=== PATIENT | female | born 1935 | race Caucasian/White ===

== ENCOUNTER 2017-01-08 17:01 | Inpatient (IN) ==
--- NOTE | 2017-01-08 17:14 | Emergency Department Report ---
Fall HPI - General Chief Complaint: Fall Stated Complaint: Fall Time Seen by Provider: 01/08/17 17:03 Source: patient Mode of arrival: ambulatory Limitations: no limitations - History of Present Illness HPI Narrative: She was outside today and was watering her plants. She got tangled up in the hose and fell from standing. She was not able to get up so yelled for her neighbor to come and help. She was laying on the concrete for about 15 minutes before her neighbor came. She does have noted shortening and rotation of the right lower extremity. Sensation and pulse is intact. MD complaint: fall Onset (ago): hour(s) Fall from: standing Fall witnessed: no Place fall occurred: home Loss of consciousness: none Prolonged down time: no Symptoms prior to fall: none Context: tripped/slipped Location of injury: pelvis (and right hip/leg) Location of injury - extremities: Right: lower leg Severity: moderate Associated symptoms (after fall): denies - Related Data Home Medications Medication Instructions Recorded Confirmed hydroCHLOROthiazide 25 mg PO DAILY #0 08/01/09 01/08/17 [Hydrochlorothiazide] Apixaban [Eliquis] 5 mg PO BID 01/08/17 01/08/17 Aspirin [Ecotrin] 81 mg PO DAILY 01/08/17 01/08/17 Losartan [Cozaar] 25 mg PO DAILY 01/08/17 01/08/17 Metoprolol Succinate 100 mg PO DAILY 01/08/17 01/08/17 Potassium 99 mg PO DAILY 01/08/17 01/08/17 Simvastatin [Zocor] 40 mg PO DAILY 01/08/17 01/08/17 Allergies Allergy/AdvReac Type Severity Reaction Status Date / Time ciprofloxacin Allergy Intermediate FLUSHING Verified 08/01/09 12:18 erythromycin base Allergy Intermediate FLUSHING Verified 08/01/09 12:18 nitrofurantoin Allergy Intermediate TACHYCARDIA Verified 08/01/09 12:18 Penicillins Allergy Intermediate RASH ; SOA Verified 08/01/09 12:18 Sulfa (Sulfonamide Allergy Intermediate Rash; SOA Verified 08/01/09 12:18 Antibiotics) Cephalexin Monohydrate Allergy Intermediate ITCHING Uncoded 08/01/09 12:18 ciprofloxacin HCl Allergy Intermediate FLUSHING Uncoded 08/01/09 12:18 Nitrofurantoin Macrocrystal Allergy Intermediate TACHYCARDIA Uncoded 08/01/09 12 :18 Review of Systems Constitutional: Denies: fever, chills, weakness Cardiovascular: Denies: chest pain, palpitations, dyspnea on exertion, edema Respiratory: Denies: cough, dyspnea, wheezes Gastrointestinal: Denies: abdominal pain, nausea, vomiting, diarrhea Musculoskeletal: Reports: other (right leg pain) Neurological: Denies: headache, weakness, numbness, paresthesias [facility] Patient Stated Medical History Post Menopausal Yes HTN thyroid disease Syncopal episode-believed to be possibly embolic events-placed on Eloquis Surgical History: Thyroidectomy. Hysterectomy-had appendix removed at the same time. - Social History Smoking status: Never smoker Substance use type: does not use Alcohol intake frequency: does not drink Physical Exam - Limitations Limitations: no limitations - General General appearance: alert, in no apparent distress - Normal Exams: Neck:: Full range of motion, without adenopathy, JVD, bruits or thyromegaly Chest/Respirations:: Clear all edouard, with good airflow, and symmetry bilaterally Cardiovascular:: Regular rate and rhythm, without murmur or gallop, Pulses 2+ all extremities, capillary refill, <2 seconds all extremities Abdomen:: Bowel sounds positive, soft, non-tender, non-distended, no hepatosplenomegaly, masses or bruits noted Neurological:: Patient is alert, and oriented Psychiatric:: Patient exhibits, appropriate attention, emotion and affect - Expanded Lower Extremity Exam Hip/Pelvis exam: Present: tenderness (over proximal femur), swelling, deformity. Absent: normal inspection (There is some increased swelling in the right proximal femur with TTP. ), full ROM, abrasion, ecchymosis Upper leg exam: Present: tenderness, swelling, deformity. Absent: normal inspection, full ROM, abrasion, ecchymosis Knee exam: Present: normal inspection. Absent: full ROM (Did not attempt ROM of the right knee given examination of the hip and femur), tenderness, swelling , abrasion, ecchymosis, deformity Lower leg exam: Present: normal inspection. Absent: full ROM, tenderness, swelling, abrasion, deformity Ankle exam: Present: normal inspection, full ROM. Absent: tenderness, swelling , abrasion, ecchymosis, deformity Foot/toe exam: Present: normal inspection, full ROM. Absent: tenderness, swelling, abrasion, ecchymosis, deformity Neurovascular/Tendon exam: Present: normal capillary refill. Absent: pulse deficit (right pedal pulse is 2+) - Skin Skin exam: Present: other (She does have abrasions noted to the right elbow but full ROM and no TTP. ) Course Vital Signs Pulse Rate 65 01/08/17 17:05 Respiratory Rate 19 01/08/17 17:05 Blood Pressure 178/79 H 01/08/17 17:05 Pulse Oximetry 98 01/08/17 17:05 Pulse Rate 65 01/08/17 17:05 Respiratory Rate 19 01/08/17 17:05 Blood Pressure 178/79 H 01/08/17 17:05 Pulse Oximetry 98 01/08/17 17:05 Fall - MDM Narrative Medical decision making narrative: DD: hip fracture, femur fracture, contusion Noted right intertrochanteric hip fracture. Did talk with Dr Falk. He will accept for ortho today. Requests admission to hospitalist. Did speak with Dr Isaac and she will accept for admission at this time. - Radiology Data Attestation: I reviewed the patient's radiology results. Disposition Clinical Impression: Trochanteric fracture of right femur Qualifiers: Encounter type: initial encounter Fracture type: closed Qualified Code(s): S72.101A - Unspecified trochanteric fracture of right femur, initial encounter for closed fracture Disposition: 02 To [facility] [place] Care Condition: Stable Prescriptions: No Action hydroCHLOROthiazide [Hydrochlorothiazide] 25 mg PO DAILY #0 Losartan [Cozaar] 25 mg PO DAILY Potassium 99 mg PO DAILY Metoprolol Succinate 100 mg PO DAILY Aspirin [Ecotrin] 81 mg PO DAILY Simvastatin [Zocor] 40 mg PO DAILY Apixaban [Eliquis] 5 mg PO BID Time of Disposition: 17:49 - Seen By: midlevel
--- NOTE | 2017-01-08 18:59 | History & Physical Report ---
<Nicole Mabry - Last Filed: 01/08/17 19:27> History of Present Illness Date: 01/08/17 Chief complaint: right hip pain HPI: Patient is a pleasant 81-year-old female from [place], [place]. She was in her yard watering plants this afternoon and reports she got tangled up in the hose and fell onto her right hip. She does not feel that she lost consciousness. She thinks she was down for at least 15 minutes before one of her neighbors heard her yelling for help. EMS was called and she was brought to our emergency department and found to have a right intertrochanteric hip fracture. In the ER she had workup including CBC with white blood cell count of 16.3, remainder essentially normal. Her CMP revealed sodium low at 133 and potassium low at 3.3. Her EKG showed bradycardia with a first-degree AV block. Her chest x-ray shows no acute abnormalities. Dr. Falk was consulted and agreed to proceed with surgery in the morning, with the hospitalist team admitting patient this evening. Patient was seen while still in the ER. She states pain is 5/10. Her last pain medication had been given en route to the ED by EMS. She reports she has been feeling well. She lives at home independently with her . Her most recent visit to her doctor was several months ago for complaints of belching/gas. She reports her previous PCP, Dr. Gipson, has left so she is seeing Dr. Bardales in [place]. She states he wanted to put her on Prilosec, but she decided to take Pepcid instead. She states this controls her symptoms. She also reports being put on Eliquis in September 2015 following at least 1 or 2 syncopal episodes with an unknown cause. She was seen by a manager unit in [place] who had performed, what sounds like a heart cath, and she also had a 30 day heart monitor. She states they never fully found a cause for her syncopal episodes, but there was suspicion of an arrhythmia and that is why they started her on Eliquis. She has not had any syncopal episodes since she has been on Eliquis. Review of Systems Comprehensive ROS: completed and no additional positive findings except those as stated - Gastrointestinal Gastrointestinal: Present: dyspepsia (occasional. Controlled with Pepcid.) - Musculoskeletal Musculoskeletal: Present: as per HPI - Integumentary/Breasts Integumentary: Present: other (skin tears to right forearm and mild abrasions to left elbow) PFSH Hypertension Dyslipidemia Anticoagulation-started for syncopal episodes (Questionable arrhythmia?) GERD Surgical History: Thyroidectomy - Dr. Wayne. Hysterectomy and bilateral oophorectomy and appendectomy '84 Family History: Father of old age Mother at 92-stroke 2 sons and a daughter have hypertension - Social History Smoking status: Never smoker Substance use type: does not use Alcohol intake frequency: other (once a week-mixed drink) Housing: house Household members: spouse Current occupational status: retired Medications Home Medications Medication Instructions Recorded Confirmed Type hydroCHLOROthiazide 25 mg PO DAILY #0 08/01/09 01/08/17 History [Hydrochlorothiazide] Apixaban [Eliquis] 5 mg PO BID 01/08/17 01/08/17 History Aspirin [Ecotrin] 81 mg PO DAILY 01/08/17 01/08/17 History Losartan [Cozaar] 25 mg PO DAILY 01/08/17 01/08/17 History Metoprolol Succinate 100 mg PO DAILY 01/08/17 01/08/17 History Potassium 99 mg PO DAILY 01/08/17 01/08/17 History Simvastatin [Zocor] 40 mg PO DAILY 01/08/17 01/08/17 History Allergies Allergy/AdvReac Type Severity Reaction Status Date / Time ciprofloxacin Allergy Intermediate FLUSHING Verified 08/01/09 12:18 erythromycin base Allergy Intermediate FLUSHING Verified 08/01/09 12:18 nitrofurantoin Allergy Intermediate TACHYCARDIA Verified 08/01/09 12:18 Penicillins Allergy Intermediate RASH ; SOA Verified 08/01/09 12:18 Sulfa (Sulfonamide Allergy Intermediate Rash; SOA Verified 08/01/09 12:18 Antibiotics) Cephalexin Monohydrate Allergy Intermediate ITCHING Uncoded 08/01/09 12:18 ciprofloxacin HCl Allergy Intermediate FLUSHING Uncoded 08/01/09 12:18 Nitrofurantoin Macrocrystal Allergy Intermediate TACHYCARDIA Uncoded 08/01/09 12 :18 Exam Vital Signs: Pulse Rate 65 01/08/17 17:05 Respiratory Rate 19 01/08/17 17:05 Blood Pressure 178/79 H 01/08/17 17:05 Pulse Oximetry 98 08/22/17 17:05 - Constitutional Present: no acute distress, well nourished, well developed - Routine HEENT Exam Head: Present: normocephalic, atraumatic Eye: Present: EOMI, PERRL ENT: Present: mucous membranes moist, oropharynx clear - Routine Neck Exam Present: supple, full ROM - Routine Respiratory Exam Present: CTA bilaterally. Absent: wheezes - Routine Cardiovascular Exam Present: RRR, S1, S2. Absent: murmur - Routine Abdominal Exam Present: soft, normoactive bowel sounds, non distended. Absent: tenderness - Routine Extremities Exam Present: no edema, normal capillary refill. Absent: extremity cold to touch Comments: Palpable pedal pulses bilaterally, shortening and rotation of the right leg - Routine Back/Spine/Pelvis Exam Comments: Pain with palpation in the right groin. No obvious ecchymosis or abrasion to the right hip area. Range of motion was not assessed given the patient's injury. - Routine Skin Exam Present: dry, warm, scars, wounds (2 skin tears to right forearm, mild erythema and slight abrasion to left elbow) - Routine Neurological Exam Present: alert, oriented X3. Absent: sensory deficit Cranial nerves III through XII grossly intact. - Routine Psychiatric Exam Present: normal affect Results - Labs CBC & Chem 7: 01/08/17 17:48 01/08/17 17:48 Labs: EKG shows sinus bradycardia with first-degree AV block - Imaging and Cardiology right hip x-ray Additional comments: Intertrochanteric hip fracture. Official report pending. Chest x-ray Additional comments: No significant abnormalities. Official report pending. Assessment and Plan (1) Trochanteric fracture of right femur Current visit: Yes Status: Acute DVT Prophylaxis: SCD's GI Prophylaxis: Pepcid Resuscitation Status: Full Code Assessment and Plan: Assessment Right Intertrochanteric hip fracture-status post fall Skin tears and superficial abrasions right forearm and left elbow Hyponatremia (POA) Hypokalemia (POA) Bradycardia with first-degree AV block Hypertension Dyslipidemia Anticoagulation-started for syncopal episodes (questionable arrhythmia?) September 2015 Plan Admit to hospitalist team for inpatient hospital care with Dr. Falk consulting for surgery for right intertrochanteric hip fracture. Patient's Eliquis and aspirin will be put on hold given pending surgery. Dr. Isaac to reconcile home meds. Nurses to clean and dress skin tears/abrasions IV fluids for maintenance and to correct hyponatremia and hypokalemia. May consider holding hydrochlorothiazide. SCDs for DVT prophylaxis. Regular diet tonight. Nothing by mouth after midnight. CBC and BMP in a.m. prior to surgery Morphine IV, Tylenol and [place] by mouth when necessary for pain. Zofran for nausea. Pepcid for GI prophylaxis. Patient is hesitant to take PPIs and prefers Pepcid at home. Telemetry given history of syncopal episodes and possible cardiac arrhythmia Will further discuss plan of care with attending. Discussed patient's preference for CODE STATUS. Patient requests full resuscitation. This order is written. At time of patient's discharge, care will be returned to her PCP, Dr. Perez Bardales in [place]. Hospital Course Summary Disclaimer: The visit summary below is not to be considered part of the above Progress Note. Hospital Course: 01/08/17 hospitalist admission Assessment Right Intertrochanteric hip fracture-status post fall Skin tears and superficial abrasions right forearm and left elbow Hyponatremia (POA) Hypokalemia (POA) Hypertension Dyslipidemia Anticoagulation-started for syncopal episodes (questionable arrhythmia?) September 2015 Plan Admit to hospitalist team for inpatient hospital care with Dr. Falk consulting for surgery for right intertrochanteric hip fracture. Patient's Eliquis and aspirin will be put on hold given pending surgery. Dr. Isaac to reconcile home meds. Nurses to clean and dress skin tears/abrasions IV fluids for maintenance and to correct hyponatremia and hypokalemia. May consider holding hydrochlorothiazide. SCDs for DVT prophylaxis. Regular diet tonight. Nothing by mouth after midnight. CBC and BMP in a.m. prior to surgery Morphine IV, Tylenol and [place] by mouth when necessary for pain. Zofran for nausea. Pepcid for GI prophylaxis. Patient is hesitant to take PPIs and prefers Pepcid at home. Telemetry given history of syncopal episodes and possible cardiac arrhythmia Will further discuss plan of care with attending. Discussed patient's preference for CODE STATUS. Patient requests full resuscitation. This order is written. At time of patient's discharge, care will be returned to her PCP, Dr. Perez Bardales in [place] <Shelby Isaac Last Filed: 01/08/17 20:30> History of Present Illness Date: 01/08/17 Exam Vital Signs: Temperature 97.3 F 01/08/17 19:58 Pulse Rate 61 01/08/17 19:58 Respiratory Rate 18 01/08/17 19:58 Blood Pressure 191/76 H 01/08/17 19:58 Pulse Oximetry 100 01/08/17 19:19 Oxygen Delivery Method Room Air Height/Weight/BMI: Height 1.61 m Weight 81.4 kg Body Mass Index 31.3 Results - Labs CBC & Chem 7: 01/08/17 17:48 01/08/17 17:48 Assessment and Plan (1) Trochanteric fracture of right femur Current visit: Yes Status: Acute Assessment and Plan: 01/08/2017-I reviewed this chart, the patient history, and the IT DIRECTOR's/PA's documented findings as above. We discussed and formulated the assessment and plan as above with the additions below.-Dr. Isaac The patient was seen this evening accompanied by one of her daughters. The patient states that she was watering her tripathi and got tangled up in her watering hose and tripped and fell. She states she did not hit her head that she is aware of. She denies any headache or neck discomfort. She has some scrapes on her elbows. Other than her right hip, she does not hurt anywhere else. She states she was in her normal state of health before her fall. She had been eating and drinking well. She has not had any weight changes. She denies any recent fevers, chills or sweats. She denies any recent Signs or symptoms of infection. She denies any chest pain or palpitations. She denies any shortness of breath. She denies nausea, vomiting, diarrhea or significant constipation. She denies any dysuria. She does take eliquis and aspirin. She took eliquis this morning and her second dose at 2pm. She states that she was told she could take this medication twice a day as long as it was 6 hours apart. She denies any abnormal bleeding since starting this medication. On exam she is alert and in no acute distress. She appears to be good historian. HEENT reveals sclerae to be anicteric and oropharynx is moist. Neck is supple. Chest is clear to auscultation. Cardiovascular reveals regular rate and rhythm without murmur, S3 or S4. Abdomen is soft and nontender. Extremities are free of edema. Right leg is inwardly rotated. Skin is warm and dry and without rashes. She has abrasions on her arms from her fall today. Impression Right hip fracture History of syncope, none for the past 1 year. Anticoagulation with eliquis for syncope thought to be secondary to arrhythmia hypertension hyperlipidemia hyponatremia hypokalemia leukocytosis without fever or symptoms of infection-likely up secondary to stress Plan Discussed with Dr. Falk. He plans for surgery tomorrow afternoon. The patient should be nothing by mouth after clear liquid breakfast tomorrow. Hold aspirin until close Blood pressure is quite elevated this evening. She takes her Toprol in the evenings and we will give her a dose now. She takes her losartan and hydrochlorothiazide in the mornings and those will be given tomorrow morning unless her blood pressure is low. Recheck CBC and basic metabolic profile tomorrow. The patient is uncertain if she has a DURABLE POWER OF LICENSING AND REGISTRATION DIRECTOR for healthcare but she will talk with her children about this. If she does not have one, she will consider filling out DPOA paperwork. Hospital Course Summary Disclaimer: The visit summary below is not to be considered part of the above Progress Note.
[2017-01-08] MEDS ORDERED: POTASSIUM CHLORIDE INJ 20 MEQ in NS 1,000 ML IV SCH (19:15)
[2017-01-08 19:59] VITALS: BMI 31.3
[2017-01-08] MEDS: FAMOTIDINE 20 MG TABLET PO SCH ×2 (20:12→22:13)
[2017-01-08] MEDS: HYDROCODONE/APAP 5mg/325mg TABLET PO PRN (20:13)
[2017-01-08] MEDS ORDERED: HYDRALAZINE 20 MG/ML INJECTION IVP PRN (20:18)
[2017-01-08] MEDS: NS 1,000 ML IV ONE (20:40)
[2017-01-08] MEDS: ONDANSETRON 4 MG/2 ML INJECTION IVP PRN (20:42)
[2017-01-08] MEDS: MORPHINE SULFATE 4 MG SYRINGE IVP PRN (23:05)
[2017-01-09] MEDS: HYDROCODONE/APAP 5mg/325mg TABLET PO PRN ×4 (00:38→23:06)
[2017-01-09] MEDS: NS 1,000 ML IV ONE (02:47)
[2017-01-09] MEDS: BACITRACIN OINT 15 GM TOP PRN (04:32)
[2017-01-09] MEDS: SALINE FLUSH 10ml SYRINGE IVF PRN ×3 (04:32→22:57)
--- NOTE | 2017-01-09 05:04 | Cardiology Consult Note ---
History of Present Illness Consult date: 01/09/17 <Kimber Montaño T - 01/09/17 05:04> Requesting physician: Shelby Isaac <Kimber Montaño T - 01/09/17 05:04> Chief complaint: Hypotension and bradycardia <Kimber Montaño T - 01/09/17 05: 04> History of present illness: This is an 81 year old patient with a history of HTN , DSLD, and arrhythmia. In 09/2015 she had a syncopal episode and her wreath inspector in [place] performed a heart cath and she wore a month long holter monitor. According to the pt they never found a reason for the syncope, and her heart cath was fine, but they suspected an arrhythmia and she was started on Eliquis. She has not had a syncopal episode since. She takes pepcid for GERD. She has been taking the same BP meds for yrs. Yesterday she was outside watering her plants when she became tangled up in the hose and fell. She did not pass out or have any lightheadedness, palpitations, chest pain or SOB. She just tripped. She yelled for her neighbor and EMS brought her into [facility] In ER her BP 178/79 and HR 65. ECG: SB, HR 58, NS T wave abnormality. WBC 16.3, Na 133, and K+ 3.3. CXR: heart size normal, lungs clear. She was found to have a right intertrochanteric hip fracture and admitted. In the ER she had workup including CBC with white blood cell count of 16.3, remainder essentially normal. Her CMP revealed sodium low at 133 and potassium low at 3.3. Her EKG showed bradycardia with a first-degree AV block. Her chest x -ray shows no acute abnormalities. Dr. Falk was consulted and agreed to proceed with surgery in the morning, with the hospitalist team admitting patient this evening. About 2100 she was laying in bed when she suddenly became nauseated and became pale and diaphoretic. Her HR went down to the 40's and BP in the 60's. She was placed flat in bed and SBP came up to 87. IVF started by Dr. Isaac. Prior to this episode her HR was in the 50's and SBP in the 190's. She states any movement would sent her to the ceiling in pain. About 15 minutes prior to this episode she was given her usual dose of Toprol 100 mg which she normally takes in the evening and a [place]. An ECG: SB, HR 58, NS T wave abnormality. Then Her SBP jumped up to 170's and IVF stopped after receiving 300ml. Pt was transferred to ICU and SBP was up to 200. She felt better, no chest pain, SOB, lightheadedness or headache. O2 sat ok on room air. HR 50's Most information from notes as pt is sleepy and does not remember all the details of her 2100 episode, but she does remember tripped over the hose earlier today and hollering at the neighbors for help. Dr. Rojas was consulted for hypotension and bradycardia. Thank you, Dr. Isaac for this consult. <SabraKimber 01/09/17 06:10> Review of Systems - Constitutional Constitutional: Absent: chills, fever(s) <SabraKimber 01/09/17 06:10> - EENMT Eyes: Absent: change in vision <SabraKimber 01/09/17 06:10> Balance: Absent: vertigo <SabraKimber 01/09/17 06:10> Mouth/Throat: Absent: sore throat <SabraKimber 01/09/17 06:10> - Cardiovascular Cardiovascular: Present: syncope. Absent: chest pain, palpitations, dyspnea on exertion, orthopnea, edema, heart murmur <SabraKimber 01/09/17 06:10> Rhythm: Present: regular rhythm <SabraKimber 01/09/17 06:10> Vascular: Absent: pedal edema <SabraKimber 01/09/17 06:10> - Respiratory Respiratory: Absent: cough, dyspnea, dyspnea on exertion <SabraKimber 01/09/17 06:10> - Gastrointestinal Gastrointestinal: Absent: change in stool character, melena, nausea <SabraKimber 01/09/17 06:10> - Musculoskeletal Musculoskeletal: Present: other (righ hip pain now. ). Absent: abnormal gait <Kimber Montaño 01/09/17 06:10> - Integumentary/Breasts Integumentary: Present: other (bruises) <Kimber Montaño 01/09/17 06:10> - Neurological Neurological: Absent: abnormal gait, abnormal speech, confusion, dizziness < Kimber Montaño 01/09/17 06:10> - Psychiatric Psychiatric: Absent: anxiety, depression <Kimber Montaño 01/09/17 06:10> - Endocrine Endocrine: Absent: cold intolerance <Kimber Montaño 01/09/17 06:10> - Hematologic/Lymphatic Hematologic/Lymphatic: Present: easy bruising <Kimber Montaño 01/09/17 06: 10> [facility] Patient Stated Medical History Syncope Yes: IN PAST Cardiac Arrhythmia Yes Heart Murmur Yes Hypertension Yes Post Menopausal Yes <Candido Rojas - 01/10/17 14:45> Patient Stated Medical History Syncope Yes: IN PAST Cardiac Arrhythmia Yes Hypertension Yes Post Menopausal Yes <Kimber Montaño 01/09/17 06:10> Surgical History: Thyroidectomy - Dr. Wayne. Hysterectomy and bilateral oophorectomy and appendectomy ' <Kimber Montaño 01/09/17 05:04> Family History: Mother at 92, she had unknown heart problems. Father in his 80's after a fall. <Kimber Montaño 01/09/17 06:10> - Social History Smoking status: Never smoker <Kimber Montaño 01/09/17 05:04> Substance use type: does not use <Kimber Montaño 01/09/17 06:10> Alcohol intake frequency: holidays/special occasions only <Kimber Montaño 01/09/17 06:10> Housing: house <Kimber Montaño 01/09/17 06:10> Household members: spouse <Kimber Montaño 01/09/17 06:10> Current occupational status: retired <Kimber Montaño 01/09/17 06:10> Current residence: Apartment/Private Home <Kimber Montaño 01/09/17 06:10> [facility]: [facility] Does her own chores at home and gardens. PCP: Dr. Bardales in [place], [place]. <Kimber Montaño - 01/09/17 06:10> Medications Home Medications Medication Instructions Recorded Confirmed Type hydroCHLOROthiazide 25 mg PO DAILY #0 08/01/09 01/08/17 History [Hydrochlorothiazide] Apixaban [Eliquis] 5 mg PO BID 01/08/17 01/08/17 History Aspirin [Ecotrin] 81 mg PO DAILY 01/08/17 01/08/17 History Losartan [Cozaar] 25 mg PO DAILY 01/08/17 01/08/17 History Metoprolol Succinate 100 mg PO DAILY 01/08/17 01/08/17 History Potassium 99 mg PO DAILY 01/08/17 01/08/17 History Simvastatin [Zocor] 40 mg PO DAILY 01/08/17 01/08/17 History <Candido Rojas - 01/10/17 14:45> Allergies Allergy/AdvReac Type Severity Reaction Status Date / Time ciprofloxacin Allergy Intermediate FLUSHING Verified 08/01/09 12:18 erythromycin base Allergy Intermediate FLUSHING Verified 08/01/09 12:18 nitrofurantoin Allergy Intermediate TACHYCARDIA Verified 08/01/09 12:18 Penicillins Allergy Intermediate RASH ; SOA Verified 08/01/09 12:18 Sulfa (Sulfonamide Allergy Intermediate Rash; SOA Verified 08/01/09 12:18 Antibiotics) Cephalexin Monohydrate Allergy Intermediate ITCHING Uncoded 08/01/09 12:18 ciprofloxacin HCl Allergy Intermediate FLUSHING Uncoded 08/01/09 12:18 Nitrofurantoin Macrocrystal Allergy Intermediate TACHYCARDIA Uncoded 08/01/09 12 :18 FOOD COLOR AdvReac Uncoded 01/08/17 21:07 <Candido Rojas - 01/10/17 14:45> Exam Vital signs: Temperature 98.8 F 01/10/17 07:45 Pulse Rate 82 01/10/17 12:00 Respiratory Rate 16 01/10/17 07:45 Blood Pressure 130/67 01/10/17 07:45 Pulse Oximetry 92 01/10/17 07:45 Oxygen Delivery Method Room Air Oxygen Flow Rate 1 <Candido Rojas - 01/10/17 14:45> Temperature 97.8 F 01/09/17 04:00 Pulse Rate 54 L 01/09/17 04:01 Respiratory Rate 16 01/09/17 04:01 Blood Pressure 147/66 H 01/09/17 04:01 Pulse Oximetry 98 01/09/17 04:01 Oxygen Delivery Method Room Air Oxygen Flow Rate 2 <Kimber Montaño 01/09/17 06:10> - Constitutional no acute distress, well nourished, well developed, cooperative <Kimber Montaño 01/09/17 06:10> - Routine HEENT Exam Head: Present: normocephalic, atraumatic <Kimber Montaño 01/09/17 06:10> Eye: Present: normal accommodation, conjunctivae pink <Kimber Montaño 06:10> ENT: Present: mucous membranes moist <Kimber Montaño 01/09/17 06:10> - Routine Neck Exam Present: trachea midline. Absent: JVD, carotid bruit <Kimber Montaño 06:10> - Routine Chest/Breast/Axilla Exam Chest wall: Absent: tenderness <Kimber Montaño 01/09/17 06:10> - Routine Respiratory Exam Present: CTA bilaterally. Absent: dyspnea <Kimber Montaño 01/09/17 06:10> - Routine Cardiovascular Exam Present: RRR, no murmur <Kimber Montaño 01/09/17 06:10> - Routine Abdominal Exam Present: soft, non tender <Kimber Montaño 01/09/17 06:10> - Routine Extremities Exam Present: no edema, pulses intact (+ 2 pedal pulses) <Kimber Montaño 06:10> Comments: Right hip and leg pain with movement. <Kimber Montaño 01/09/17 06:10> - Routine Skin Exam Present: intact, dry, warm, ecchymosis <Kimber Montaño 01/09/17 06:10> - Routine Neurological Exam Present: alert, oriented X3, moving all extremities (except right leg. ) < Kimber Montaño - 01/09/17 06:10> - Routine Psychiatric Exam Present: normal affect, normal thought process, cooperative, good insight, good judgment <Kimber Montaño T - 01/09/17 06:10> Results 01/10/17 04:21 01/10/17 04:21 <CrystalIbethCandido - 01/10/17 14:45> CBC 01/10/17 Range/Units 04:21 WBC 9.1 (4.5-11.0) T/MM3 RBC 2.74 L (4.00-5.20) M/MM3 Hgb 8.2 L D (12-16) GM/DL Hct 24.4 L D (36-46) % Plt Count 221 (130-400) T/MM3 Neut # 6.5 (1.8-7.7) T/MM3 Lymph # 1.2 (1-4.8) T/MM3 [place] # 1.2 H (0-0.8) T/MM3 Eos # 0.1 (0-0.5) T/MM3 Baso # 0.0 (0-0.2) T/MM3 Comprehensive Metabolic Panel 01/10/17 Range/Units 04:21 Sodium 128 L (134-144) MEQ/L Potassium 3.9 (3.6-5) MEQ/L Chloride 97 L (98-107) MEQ/L Carbon Dioxide 26 (22-30) MEQ/L BUN 10.0 (7-17) MG/DL Creatinine 0.7 (0.7-1.2) MG/DL Glucose 128 H (65-110) MG/DL Calcium 7.9 L (8.4-10.2) MG/DL Intake and Output 01/09/17 01/10/17 01/10/17 22:59 06:59 14:59 Intake Total 431.333 / 243.988 5970.000 / 1150.000 959.333 / 959.333 Output Total 515 / 515 220 / 220 Balance -83.667 / -83.667 930.000 / 930.000 959.333 / 959.333 Intake: IV 431.333 / 431.333 600.000 / 600.000 723.333 / 723.333 CLEOCIN PREMIX 600 mg In 100 / 100 50 / 50 50 ml @ 100 mls/hr IV Q6H [facility] Rx#:[id number] CLEOCIN PREMIX 900 mg In 50 / 50 50 ml @ 50 mls/hr IV ONE TIME [facility] Rx#:[id number] Normal Saline 500 ml @ 500 / 500 250 mls/hr IV .Q2H [facility] Rx #:[id number] Normal Saline 1,000 ml @ 381.333 / 381.333 500.000 / 500.000 173.333 / 173.333 80 mls/hr IV .[id number] [facility] Rx#:[id number] Oral 550 / 550 236 / 236 Output: Urine Amount (Catheter) 515 / 515 220 / 220 Other: Urine Appearance Clear Clear Urine Color Yellow Dark Yellow Urine Odor Normal Weight 72.3 kg Patient Weight 01/11/17 06:59 Weight 72.3 kg <Candido Rojas - 01/10/17 14:45> Cardiac Enzymes 01/08/17 Range/Units 20:46 Troponin I < 0.012 (0-0.12) ng/ml CBC 01/08/17 Range/Units 20:46 WBC 15.8 H (4.5-11.0) T/MM3 RBC 3.77 L (4.00-5.20) M/MM3 Hgb 11.2 L (12-16) GM/DL Hct 33.1 L (36-46) % Plt Count 291 (130-400) T/MM3 Neut # Not performed Lymph # Not performed [place] # Not performed Eos # Not performed Baso # Not performed Comprehensive Metabolic Panel 01/08/17 Range/Units 20:46 Sodium 130 L (134-144) MEQ/L Potassium 3.6 (3.6-5) MEQ/L Chloride 97 L (98-107) MEQ/L Carbon Dioxide 24 (22-30) MEQ/L BUN 12.0 (7-17) MG/DL Creatinine 0.6 L (0.7-1.2) MG/DL Glucose 130 H (65-110) MG/DL Calcium 8.5 (8.4-10.2) MG/DL Intake and Output 01/08/17 01/08/17 01/09/17 14:59 22:59 06:59 Intake Total 484.125 / 484.125 640 / 640 Output Total 755 / 755 Balance 484.125 / 484.125 -115 / -115 Intake: IV 484.125 / 484.125 Normal Saline 1,000 ml @ 416.625 / 416.625 999.9 mls/hr IV .Q1H [facility] Rx#:[id number] KCl 20 Meq In Normal 67.5 / 67.5 Saline 1,000 ml @ 75 mls/ hr IV .[id number] [facility] Rx#: [id number] Oral 640 / 640 Output: Urine Amount (Catheter) 755 / 755 Other: Weight 179 lb 7.3 oz Patient Weight 01/09/17 06:59 Weight 179 lb 7.3 oz Laboratory Results - last 24 hr 01/08/17 01/08/17 01/08/17 17:48 17:48 20:46 WBC 16.3 H 15.8 H RBC 4.27 3.77 L Hgb 12.4 11.2 L Hct 37.1 33.1 L MCV 86.9 87.8 MCH 29.0 29.7 MCHC 33.4 33.8 RDW Std Deviation 39.0 38.8 Plt Count 280 291 MPV 8.2 L 8.7 L Immature Gran % (Auto) Not performed Not performed Neut % (Auto) Not performed Not performed Lymph % (Auto) Not performed Not performed [place] % (Auto) Not performed Not performed Eos % (Auto) Not performed Not performed Baso % (Auto) Not performed Not performed Neut # Not performed Not performed Lymph # Not performed Not performed [place] # Not performed Not performed Eos # Not performed Not performed Baso # Not performed Not performed Abs Immat Gran (auto) Not performed Not performed Neutrophils % (Manual) 74.0 H 77.0 H Band Neutrophils % 5.0 7.0 H Lymphocytes % (Manual) 12.0 L 12.0 L Monocytes % (Manual) 6.0 3.0 Eosinophils % (Manual) 2.0 1.0 Basophils % (Manual) 1.0 Neutrophils # (Manual) 12.1 H 12.2 H Band Neutrophils # 0.8 1.1 Lymphocytes # (Manual) 2.0 1.9 Monocytes # (Manual) 1.0 H 0.5 Eosinophils # (Manual) 0.3 0.2 Basophils # (Manual) 0.2 RBC Morph Comment Normal Normal Turbidity < 20 Sodium 133 L Potassium 3.3 L Chloride 96 L Carbon Dioxide 25 Anion Gap 12 BUN 12.0 Creatinine 0.7 GFR Calculation 81 BUN/Creatinine Ratio 17 Glucose 109 Calculated Osmolality 257 L Calcium 9.1 Magnesium Icterus Index < 2 Troponin I Specimen Hemolysis < 15 Ur Collection Type Urine Color Urine Clarity Urine pH Ur Specific [place] Urine Protein Urine Glucose (UA) Urine Ketones Urine Occult Blood Urine Nitrate Urine Bilirubin Urine Urobilinogen Ur Leukocyte Esterase Urine RBC Urine WBC Urine Bacteria Ur Culture Indicated? Blood Type Antibody Screen 01/08/17 01/08/17 01/08/17 20:46 20:46 20:46 WBC RBC Hgb Hct MCV MCH MCHC RDW Std Deviation Plt Count MPV Immature Gran % (Auto) Neut % (Auto) Lymph % (Auto) [place] % (Auto) Eos % (Auto) Baso % (Auto) Neut # Lymph # [place] # Eos # Baso # Abs Immat Gran (auto) Neutrophils % (Manual) Band Neutrophils % Lymphocytes % (Manual) Monocytes % (Manual) Eosinophils % (Manual) Basophils % (Manual) Neutrophils # (Manual) Band Neutrophils # Lymphocytes # (Manual) Monocytes # (Manual) Eosinophils # (Manual) Basophils # (Manual) RBC Morph Comment Turbidity < 20 Sodium 130 L Potassium 3.6 Chloride 97 L Carbon Dioxide 24 Anion Gap 9 BUN 12.0 Creatinine 0.6 L GFR Calculation 96 BUN/Creatinine Ratio 20 Glucose 130 H Calculated Osmolality 253 L Calcium 8.5 Magnesium 1.9 Icterus Index < 2 Troponin I < 0.012 Specimen Hemolysis 54 H Ur Collection Type Urine Color Urine Clarity Urine pH Ur Specific [place] Urine Protein Urine Glucose (UA) Urine Ketones Urine Occult Blood Urine Nitrate Urine Bilirubin Urine Urobilinogen Ur Leukocyte Esterase Urine RBC Urine WBC Urine Bacteria Ur Culture Indicated? Blood Type A Positive Antibody Screen Negative 01/08/17 01/09/17 01/09/17 22:46 04:06 04:06 WBC 8.3 D RBC 3.61 L Hgb 10.6 L Hct 31.6 L MCV 87.5 MCH 29.4 MCHC 33.5 RDW Std Deviation 38.6 Plt Count 259 MPV 9.0 L Immature Gran % (Auto) Neut % (Auto) Lymph % (Auto) [place] % (Auto) Eos % (Auto) Baso % (Auto) Neut # Lymph # [place] # Eos # Baso # Abs Immat Gran (auto) Neutrophils % (Manual) Band Neutrophils % Lymphocytes % (Manual) Monocytes % (Manual) Eosinophils % (Manual) Basophils % (Manual) Neutrophils # (Manual) Band Neutrophils # Lymphocytes # (Manual) Monocytes # (Manual) Eosinophils # (Manual) Basophils # (Manual) RBC Morph Comment Turbidity < 20 Sodium 129 L Potassium 3.9 Chloride 94 L Carbon Dioxide 27 Anion Gap 8 BUN 11.0 Creatinine 0.6 L GFR Calculation 96 BUN/Creatinine Ratio 18 Glucose 117 H Calculated Osmolality 249 L Calcium 8.5 Magnesium Icterus Index < 2 Troponin I Specimen Hemolysis < 15 Ur Collection Type Urine, [place] Urine Color Yellow Urine Clarity Clear Urine pH 6.5 Ur Specific [place] 1.015 Urine Protein Negative Urine Glucose (UA) Negative Urine Ketones 1+ A Urine Occult Blood 1+ A Urine Nitrate Negative Urine Bilirubin Negative Urine Urobilinogen 0.2 Ur Leukocyte Esterase 2+ A Urine RBC 1-3 Urine WBC 5-10 H Urine Bacteria None seen Ur Culture Indicated? Cult not indicated Blood Type Antibody Screen <SabraKimber T - 01/09/17 06:10> - Imaging and Cardiology Imaging & Cardiology Narrative: 01/08/17 ECG: SB, HR 58, NS T wave abnormality 01/08/2017 CXR: heart size normal, lungs clear. <SabraKimber T - 01/09/17 06:10> - EKG Interpretation EKG: sinus rhythm <SabraKimberranjeet Patricia 01/09/17 06:10> EKG shows: bradycardia <SabraKimber T 01/09/17 06:10> Assessment and Plan (1) Trochanteric fracture of right femur Current visit: Yes Status: Acute (2) Hypotension, iatrogenic Current visit: Yes Status: Acute (3) Hypertension Current visit: Yes Status: Acute (4) Bradycardia Current visit: Yes Status: Acute (5) Hyperlipemia Current visit: Yes Status: Acute <Candido Rojas - 01/10/17 14:45> (1) Hypotension, iatrogenic Current visit: Yes Status: Acute Since her HR and BP both dropped simultaneously - likely iatrogenic due to medications and vagal response due to pain. Recuperated. Now she is hypertensive. cont home BP meds. (2) Trochanteric fracture of right femur Current visit: Yes Status: Acute Dr. Falk consulted per Dr. Isaac for possible surgery today. Eliquis and ASA on hold for surgery. (3) Hypertension Current visit: Yes Status: Acute Cont home meds: Toprol 100mg qhs and losartan in am. Hold HCTZ as she will be NPO for surgery. She has been taking these meds for yrs. (4) Bradycardia Current visit: Yes Status: Acute Likely vagal response due to pain and iatrogenic due to meds. HR 49 to 50's last night - sleeping and receiving pain meds. Monitor telemetry. (5) Hyperlipemia Current visit: Yes Status: Acute cont statin - managed by PCP <Kimber Montaño - 01/09/17 06:11> - Attestation Attestation Narrative: 01/10/17 14:45 Recommendation After examining the patient I agree with the above assessment. I am involved in the formulation of the patient's plan of care. <Candido Rojas - 01/10/17 14:45> Hospital Course Summary Disclaimer: The visit summary below is not to be considered part of the above Progress Note. <Candido Rojas - 01/10/17 14:45> The visit summary below is not to be considered part of the above Progress Note. Thank you, Dr. Iasac for this consult. We will follow along with you during this patient's hospitalization.If you have any concerns of\r questions, please feel free to contact us. <Kimber Montaño - 01/09/17 06:15> Hospital Course: 01/08/17 hospitalist admission Assessment Right Intertrochanteric hip fracture-status post fall Skin tears and superficial abrasions right forearm and left elbow Hyponatremia (POA) Hypokalemia (POA) Hypertension Dyslipidemia Anticoagulation-started for syncopal episodes (questionable arrhythmia?) September 2015 Plan Admit to hospitalist team for inpatient hospital care with Dr. Falk consulting for surgery for right intertrochanteric hip fracture. Patient's Eliquis and aspirin will be put on hold given pending surgery. Dr. Isaac to reconcile home meds. Nurses to clean and dress skin tears/abrasions IV fluids for maintenance and to correct hyponatremia and hypokalemia. May consider holding hydrochlorothiazide. SCDs for DVT prophylaxis. Regular diet tonight. Nothing by mouth after midnight. CBC and BMP in a.m. prior to surgery Morphine IV, Tylenol and [place] by mouth when necessary for pain. Zofran for nausea. Pepcid for GI prophylaxis. Patient is hesitant to take PPIs and prefers Pepcid at home. Telemetry given history of syncopal episodes and possible cardiac arrhythmia Will further discuss plan of care with attending. Discussed patient's preference for CODE STATUS. Patient requests full resuscitation. This order is written. At time of patient's discharge, care will be returned to her PCP, Dr. Perez Bardales in [place] <Kimber Montaño 01/09/17 06:15> Sepsis Assessment - Evaluation Sepsis screening result: No Definite Risk <Kimber Montaño 01/09/17 05:04>
--- NOTE | 2017-01-09 07:58 | Orthopedic Consult Note ---
Orthopedic Consultation HPI - Consultation Info Consult Date: 01/09/17 Attending Physician: Shelby Isaac MD Consult Reason: fracture - HPI Elements right hip Pain: sharp Onset: sudden Severity: severe Duration: 6-12 hours How Often Does Pain Occur: constant Previous Surgery: No Previous Injury: No Aggrevated by: all activity X-ray Findings: intertrochanteric fractur Recommendation: other (Cephalomedullary fixation of right intertrochanteric hip fracture) Review of Systems - Constitutional Constitutional: Absent: chills, fever(s), night sweats - Cardiovascular Cardiovascular: Absent: chest pain, palpitations - Respiratory Respiratory: Absent: cough, dyspnea - Gastrointestinal Gastrointestinal: Absent: abdominal pain, nausea, vomiting - Genitourinary Genitourinary Female: Absent: dysuria - Musculoskeletal Musculoskeletal: Present: as per HPI - Integumentary/Breasts Integumentary: Absent: lesions, rash - Neurological Neurological: Absent: numbness, tingling PFSH Patient Stated Medical History Syncope Yes: IN PAST Cardiac Arrhythmia Yes Hypertension Yes Post Menopausal Yes Surgical History: Thyroidectomy - Dr. Wayne. Hysterectomy and bilateral oophorectomy and appendectomy ' - Social History Smoking status: Never smoker Current residence: Apartment/Private Home Medications Home Medications Medication Instructions Recorded Confirmed Type hydroCHLOROthiazide 25 mg PO DAILY #0 08/01/09 01/08/17 History [Hydrochlorothiazide] Apixaban [Eliquis] 5 mg PO BID 01/08/17 01/08/17 History Aspirin [Ecotrin] 81 mg PO DAILY 01/08/17 01/08/17 History Losartan [Cozaar] 25 mg PO DAILY 01/08/17 01/08/17 History Metoprolol Succinate 100 mg PO DAILY 01/08/17 01/08/17 History Potassium 99 mg PO DAILY 01/08/17 01/08/17 History Simvastatin [Zocor] 40 mg PO DAILY 01/08/17 01/08/17 History Allergies Allergy/AdvReac Type Severity Reaction Status Date / Time ciprofloxacin Allergy Intermediate FLUSHING Verified 08/01/09 12:18 erythromycin base Allergy Intermediate FLUSHING Verified 08/01/09 12:18 nitrofurantoin Allergy Intermediate TACHYCARDIA Verified 08/01/09 12:18 Penicillins Allergy Intermediate RASH ; SOA Verified 08/01/09 12:18 Sulfa (Sulfonamide Allergy Intermediate Rash; SOA Verified 08/01/09 12:18 Antibiotics) Cephalexin Monohydrate Allergy Intermediate ITCHING Uncoded 08/01/09 12:18 ciprofloxacin HCl Allergy Intermediate FLUSHING Uncoded 08/01/09 12:18 Nitrofurantoin Macrocrystal Allergy Intermediate TACHYCARDIA Uncoded 08/01/09 12 :18 FOOD COLOR AdvReac Uncoded 01/08/17 21:07 Orthopedic Exam Vital signs: Temperature 97.8 F 01/09/17 04:00 Pulse Rate 54 L 01/09/17 04:01 Respiratory Rate 16 01/09/17 04:01 Blood Pressure 147/66 H 01/09/17 04:01 Pulse Oximetry 98 01/09/17 04:01 Oxygen Delivery Method Room Air Oxygen Flow Rate 2 - Constitutional General Appearance: Present: no acute distress, well developed, well nourished - Respiratory Exam Present: non-labored - Cardiovascular Exam Present: pedal pulses intact - Extremities Exam Present: no edema, pulses intact (+ 2 pedal pulses) Comments: Right leg shortened and externally rotated. Skin intact. Distal pulses intact. Good movement of toes and ankle bilaterally. - Integumentary Exam Present: pink, warm, dry - Neurological Exam Present: intact to light touch - Psychiatric Exam Present: alert, normal affect - Labs Result Diagrams: 01/09/17 04:06 01/09/17 04:06 Abnormal lab results 01/08/17 01/08/17 01/08/17 Range/Units 20:46 20:46 22:46 WBC 15.8 H (4.5-11.0) T/MM3 RBC 3.77 L (4.00-5.20) M/MM3 Hgb 11.2 L (12-16) GM/DL Hct 33.1 L (36-46) % MPV 8.7 L (9.4-12.4) UM3 Neutrophils % (Manual) 77.0 H (33-66) % Band Neutrophils % 7.0 H (0-6) % Lymphocytes % (Manual) 12.0 L (23-45) % Monocytes % (Manual) (0-9.0) % Neutrophils # (Manual) 12.2 H (1.8-7.7) T/MM3 Monocytes # (Manual) (0-0.8) T/MM3 Sodium 130 L (134-144) MEQ/L Chloride 97 L (98-107) MEQ/L Creatinine 0.6 L (0.7-1.2) MG/DL Glucose 130 H (65-110) MG/DL Calculated Osmolality 253 L (261-280) MOSM/KG Specimen Hemolysis 54 H (0-25) Urine Ketones 1+ A (NEGATIVE) Urine Occult Blood 1+ A (NEGATIVE) Ur Leukocyte Esterase 2+ A (NEGATIVE) Urine WBC 5-10 H (0-5) /HPF 01/09/17 01/09/17 Range/Units 04:06 04:06 WBC (4.5-11.0) T/MM3 RBC 3.61 L (4.00-5.20) M/MM3 Hgb 10.6 L (12-16) GM/DL Hct 31.6 L (36-46) % MPV 9.0 L (9.4-12.4) UM3 Neutrophils % (Manual) 69.0 H (33-66) % Band Neutrophils % (0-6) % Lymphocytes % (Manual) 13.0 L (23-45) % Monocytes % (Manual) 16.0 H (0-9.0) % Neutrophils # (Manual) (1.8-7.7) T/MM3 Monocytes # (Manual) 1.3 H (0-0.8) T/MM3 Sodium 129 L (134-144) MEQ/L Chloride 94 L (98-107) MEQ/L Creatinine 0.6 L (0.7-1.2) MG/DL Glucose 117 H (65-110) MG/DL Calculated Osmolality 249 L (261-280) MOSM/KG Specimen Hemolysis (0-25) Urine Ketones (NEGATIVE) Urine Occult Blood (NEGATIVE) Ur Leukocyte Esterase (NEGATIVE) Urine WBC (0-5) /HPF H & H 01/08/17 01/09/17 Range/Units 20:46 04:06 Hgb 11.2 L 10.6 L (12-16) GM/DL Hct 33.1 L 31.6 L (36-46) % - Diagnostic results Hip x-ray: image reviewed Impression and Recommendation (1) Closed intertrochanteric fracture of right femur Current visit: Yes Qualifiers: Encounter type: initial encounter Fracture alignment: displaced Qualified Code(s): S72.141A - Displaced intertrochanteric fracture of right femur, initial encounter for closed fracture Status: Acute Cephalomedullary fixation this afternoon if cleared by cardiology. Discussed the risks and benefits with patient and her daughter. Hospital Course Summary Disclaimer: The visit summary below is not to be considered part of the above Progress Note. Hospital Course: 01/08/17 hospitalist admission Assessment Right Intertrochanteric hip fracture-status post fall Skin tears and superficial abrasions right forearm and left elbow Hyponatremia (POA) Hypokalemia (POA) Hypertension Dyslipidemia Anticoagulation-started for syncopal episodes (questionable arrhythmia?) September 2015 Plan Admit to hospitalist team for inpatient hospital care with Dr. Falk consulting for surgery for right intertrochanteric hip fracture. Patient's Eliquis and aspirin will be put on hold given pending surgery. Dr. Isaac to reconcile home meds. Nurses to clean and dress skin tears/abrasions IV fluids for maintenance and to correct hyponatremia and hypokalemia. May consider holding hydrochlorothiazide. SCDs for DVT prophylaxis. Regular diet tonight. Nothing by mouth after midnight. CBC and BMP in a.m. prior to surgery Morphine IV, Tylenol and [place] by mouth when necessary for pain. Zofran for nausea. Pepcid for GI prophylaxis. Patient is hesitant to take PPIs and prefers Pepcid at home. Telemetry given history of syncopal episodes and possible cardiac arrhythmia Will further discuss plan of care with attending. Discussed patient's preference for CODE STATUS. Patient requests full resuscitation. This order is written. At time of patient's discharge, care will be returned to her PCP, Dr. Perez Bardales in [place]
[2017-01-09] MEDS: FAMOTIDINE 20 MG TABLET PO SCH ×2 (08:07→22:47)
--- NOTE | 2017-01-09 08:08 | XRay Report ---
Indication: ro fat embolus, right hip fracture PROCEDURE: XR chest 1V: Encounter: Initial Comparison: None FINDINGS: The lungs are clear. There is no abnormal airspace opacity, pleural effusion or pneumothorax identified. The heart size and mediastinum are within normal limits. No significant skeletal abnormality is seen. IMPRESSION: No acute cardiopulmonary abnormality. .
--- NOTE | 2017-01-09 08:09 | XRay Report ---
Indication: fall, right leg/hip pain PROCEDURE: XR pelvis w/ 2 view RT hip: Encounter: Initial Comparison: None Findings: Comminuted displaced and mildly angulated intertrochanteric fracture of the right femur. No additional acute fracture or dislocation is seen. Mild bony demineralization. Impression: Closed posttraumatic intertrochanteric right femoral fracture. .
--- NOTE | 2017-01-09 08:55 | Progress Note ---
Subjective: The patient states she's feeling okay this morning. Pain in her hip is under good control and she just got a pain pill. She denies any shortness of breath or chest pain. She denies any lightheadedness. She denies any nausea or abdominal pain. She has a Cheng catheter in place. She required 1 dose of IV hydralazine last night. The patient was transferred to intensive care last night around 9 PM after an episode of bradycardia and hypotension, possibly a vagal response. Once blood pressure improved her blood pressure was actually high. IV fluids were discontinued. She's had no further bradycardia or hypotension since that time. Objective Vital signs: Temperature 98.2 F 01/09/17 08:00 Pulse Rate 56 L 01/09/17 08:00 Respiratory Rate 16 01/09/17 08:00 Blood Pressure 155/73 H 01/09/17 08:00 Pulse Oximetry 100 01/09/17 08:00 Oxygen Delivery Method Room Air Oxygen Flow Rate 2 Height/Weight/BMI: Height 1.61 m Weight 70.4 kg Body Mass Index 31.3 Comments: GEN-alert, oriented, no acute distress HEENT-sclera anicteric, pupils equal, oropharynx is moist NECK-supple CV-regular rate and rhythm CHEST-clear to auscultation bilaterally ABD-soft, nontender with positive bowel sounds -Cheng in place with good urine output EXT-no edema NEURO-no focal deficits SKIN-warm and dry and without rashes Results - Labs CBC & Chem 7: 01/09/17 04:06 01/09/17 04:06 Labs: Troponin normal last night 0.012, magnesium 1.9 Assessment and Plan (1) Trochanteric fracture of right femur Current visit: Yes Status: Acute Assessment and Plan: 01/09/2017-Dr. Isaac Impression Episode of hypotension and bradycardia last night, resolved after 20-30 minutes with IV fluids wide open. No recurrence Right hip fracture 01/08/2017 History of syncope, none for the past 1 year. Anticoagulation with eliquis for syncope thought to be secondary to arrhythmia- discussed yesterday with Dr Falk and he is aware. Last dose was approximately 2pm yesterday. hypertension-bp elevated overnight and this am. hyperlipidemia hyponatremia-worsened today with sodium of 129 after IV fluids yesterday hypokalemia-resolved, magnesium is normal leukocytosis without fever or symptoms of infection-resolved, was most likely secondary to stress ABLA-monitor (hemoglobin dropped from 12.4 yesterday to 10.6 today Plan Blood pressure is elevated this morning. We'll give her usual Cozaar dose. Per cardiology, from a cardiac standpoint, okay to proceed with surgery this afternoon. I agree that she seems appropriate for surgery later today. If she is stable perioperatively, she could likely return to the surgical floor post op. Recheck CBC and basic metabolic profile tomorrow. Hold hydrochlorothiazide due to hyponatremia Will notify Dr. Falk Sepsis Assessment - Evaluation Sepsis screening result: No Definite Risk Hospital Course Summary Disclaimer: The visit summary below is not to be considered part of the above Progress Note. Hospital Course: 01/08/17 hospitalist admission Assessment Right Intertrochanteric hip fracture-status post fall Skin tears and superficial abrasions right forearm and left elbow Hyponatremia (POA) Hypokalemia (POA) Hypertension Dyslipidemia Anticoagulation-started for syncopal episodes (questionable arrhythmia?) September 2015 Plan Admit to hospitalist team for inpatient hospital care with Dr. Falk consulting for surgery for right intertrochanteric hip fracture. Patient's Eliquis and aspirin will be put on hold given pending surgery. Dr. Isaac to reconcile home meds. Nurses to clean and dress skin tears/abrasions IV fluids for maintenance and to correct hyponatremia and hypokalemia. May consider holding hydrochlorothiazide. SCDs for DVT prophylaxis. Regular diet tonight. Nothing by mouth after midnight. CBC and BMP in a.m. prior to surgery Morphine IV, Tylenol and [place] by mouth when necessary for pain. Zofran for nausea. Pepcid for GI prophylaxis. Patient is hesitant to take PPIs and prefers Pepcid at home. Telemetry given history of syncopal episodes and possible cardiac arrhythmia Will further discuss plan of care with attending. Discussed patient's preference for CODE STATUS. Patient requests full resuscitation. This order is written. At time of patient's discharge, care will be returned to her PCP, Dr. Perez Bardales in [place] 01/09/17 08:55 01/08/2017-I reviewed this chart, the patient history, and the UNBUNDLER's/PA's documented findings as above. We discussed and formulated the assessment and plan as above with the additions below.-Dr. Isaac The patient was seen this evening accompanied by one of her daughters. The patient states that she was watering her tripathi and got tangled up in her watering hose and tripped and fell. She states she did not hit her head that she is aware of. She denies any headache or neck discomfort. She has some scrapes on her elbows. Other than her right hip, she does not hurt anywhere else. She states she was in her normal state of health before her fall. She had been eating and drinking well. She has not had any weight changes. She denies any recent fevers, chills or sweats. She denies any recent Signs or symptoms of infection. She denies any chest pain or palpitations. She denies any shortness of breath. She denies nausea, vomiting, diarrhea or significant constipation. She denies any dysuria. She does take eliquis and aspirin. She took eliquis this morning and her second dose at 2pm. She states that she was told she could take this medication twice a day as long as it was 6 hours apart. She denies any abnormal bleeding since starting this medication. On exam she is alert and in no acute distress. She appears to be good historian. HEENT reveals sclerae to be anicteric and oropharynx is moist. Neck is supple. Chest is clear to auscultation. Cardiovascular reveals regular rate and rhythm without murmur, S3 or S4. Abdomen is soft and nontender. Extremities are free of edema. Right leg is inwardly rotated. Skin is warm and dry and without rashes. She has abrasions on her arms from her fall today. Impression Right hip fracture History of syncope, none for the past 1 year. Anticoagulation with eliquis for syncope thought to be secondary to arrhythmia hypertension hyperlipidemia hyponatremia hypokalemia leukocytosis without fever or symptoms of infection-likely up secondary to stress Plan Discussed with Dr. Falk. He plans for surgery tomorrow afternoon. The patient should be nothing by mouth after clear liquid breakfast tomorrow. Hold aspirin until close Blood pressure is quite elevated this evening. She takes her Toprol in the evenings and we will give her a dose now. She takes her losartan and hydrochlorothiazide in the mornings and those will be given tomorrow morning unless her blood pressure is low. Recheck CBC and basic metabolic profile tomorrow. The patient is uncertain if she has a DURABLE POWER OF CLINIC LEAD for healthcare but she will talk with her children about this. If she does not have one, she will consider filling out DPOA paperwork
[2017-01-09] MEDS ORDERED: LOSARTAN 50 MG TABLET PO SCH (09:00)
[2017-01-09] MEDS: LOSARTAN 50 MG TABLET PO SCH (09:30)
[2017-01-09] MEDS: MORPHINE SULFATE 4 MG SYRINGE IVP PRN ×3 (12:06→21:28)
--- NOTE | 2017-01-09 14:35 | Anesthesia Preoperative Report ---
Anesthesia Preoperative Record - Date and Time Date: 01/09/17 Preoperative Diagnosis: Right Hip Fracture Proposed Procedure: right hip fracture gamma nail fixation NPO Since Date: 01/09/17 NPO Since Time: 05:00 Allergies/Adverse Reactions: Allergies Allergy/AdvReac Type Severity Reaction Status Date / Time ciprofloxacin Allergy Intermediate FLUSHING Verified 08/01/09 12:18 erythromycin base Allergy Intermediate FLUSHING Verified 08/01/09 12:18 nitrofurantoin Allergy Intermediate TACHYCARDIA Verified 08/01/09 12:18 Penicillins Allergy Intermediate RASH ; SOA Verified 08/01/09 12:18 Sulfa (Sulfonamide Allergy Intermediate Rash; SOA Verified 08/01/09 12:18 Antibiotics) Cephalexin Monohydrate Allergy Intermediate ITCHING Uncoded 08/01/09 12:18 ciprofloxacin HCl Allergy Intermediate FLUSHING Uncoded 08/01/09 12:18 Nitrofurantoin Macrocrystal Allergy Intermediate TACHYCARDIA Uncoded 08/01/09 12 :18 FOOD COLOR AdvReac Uncoded 01/08/17 21:07 - Vital Signs Vital Signs: Temperature 98.3 F 01/09/17 12:00 Pulse Rate 57 L 01/09/17 12:00 Respiratory Rate 18 01/09/17 12:00 Blood Pressure 177/83 H 01/09/17 12:00 Pulse Oximetry 100 01/09/17 12:00 Oxygen Delivery Method Room Air Oxygen Flow Rate 2 Height and Weight: Height 1.61 m Weight 70.4 kg Body Mass Index 31.3 - Medications Inpatient Medications: Current Medications Acetaminophen (Tylenol) 500 mg PO Q5H PRN PRN Reason: Discomfort Acetaminophen/Hydrocodone Bitart ([place] 5/325) 1 - 2 tab PO Q4H PRN PRN Reason: Pain Last Admin: 01/09/17 08:05 Dose: 1 tab Bacitracin (Bacitracin Oint) 1 applic TOP PRN PRN PRN Reason: TO ABRASIONS ON ARMS Last Admin: 01/09/17 04:32 Dose: 1 applic Famotidine (Pepcid) 20 mg PO BID [facility] Last Admin: 01/09/17 08:07 Dose: 20 mg Losartan Potassium (Cozaar) 50 mg PO DAILY SARAH Last Admin: 01/09/17 09:30 Dose: 50 mg Morphine Sulfate (Morphine Sulfate Inj) 1 - 2 mg IVP Q2H PRN PRN Reason: Pain Last Admin: 01/09/17 12:06 Dose: 2 mg Ondansetron HCl (Zofran) 4 mg IVP Q6H PRN PRN Reason: Nausea &/or vomiting Last Admin: 01/08/17 20:42 Dose: 4 mg Simvastatin (Zocor) 40 mg PO 2100 SARAH Sodium Chloride (Iv Flush) 10 - 80 ml IVF PRN PRN PRN Reason: Flushing Last Admin: 01/09/17 12:08 Dose: 10 ml Home Medications: Home Medications Medication Instructions Recorded Confirmed Type hydroCHLOROthiazide 25 mg PO DAILY #0 08/01/09 01/08/17 History [Hydrochlorothiazide] Apixaban [Eliquis] 5 mg PO BID 01/08/17 01/08/17 History Aspirin [Ecotrin] 81 mg PO DAILY 01/08/17 01/08/17 History Losartan [Cozaar] 25 mg PO DAILY 01/08/17 01/08/17 History Metoprolol Succinate 100 mg PO DAILY 01/08/17 01/08/17 History Potassium 99 mg PO DAILY 01/08/17 01/08/17 History Simvastatin [Zocor] 40 mg PO DAILY 01/08/17 01/08/17 History Is Patient on Beta Brendon?: Yes - Medical History Cardiovascular: Reports: Arrhythmia, Heart Murmur, Hypertension, High Cholesterol - Surgical History Endocrine Surgery/Treatments: Reports: Thyroidectomy Hx Family Anesthesia Reaction: No History of Motion Sickness: No - Social History Smoking Status: Never smoker Hx Chewing Tobacco Use: No Second Hand Exposure: No Substance Use Type: does not use Alcohol Intake Frequency: does not drink - Pertinent Findings Laboratory: CBC and BMP 01/09/17 04:06 01/09/17 04:06 BMP 01/08/17 01/09/17 20:46 04:06 Sodium 130 L 129 L Potassium 3.6 3.9 Chloride 97 L 94 L Carbon Dioxide 24 27 BUN 12.0 11.0 Creatinine 0.6 L 0.6 L Glucose 130 H 117 H Calcium 8.5 8.5 Cardiac Enzymes 01/08/17 Range/Units 20:46 Troponin I < 0.012 (0-0.12) ng/ml Urine 01/08/17 Range/Units 22:46 Urine Color Yellow (YELLOW) Urine Clarity Clear Urine pH 6.5 (5.0-8.0) Ur Specific [place] 1.015 (1.015-1.025) Urine Protein Negative (NEGATIVE) Urine Glucose (UA) Negative (NEGATIVE) EKG Rhythm: Normal Sinus Rhythm - Physical Exam Respiratory Exam: Present: lungs clear Cardiovascular Exam: Present: regular rate and rhythm, systolic murmur - Airway Assessment Mallampati Score: II TMD: 3 Fingerbreadths Teeth: upper dentures Overall Assessment: no airway concerns - ASA ASA Score: 3 - Plan Anesthesia: General Inhalation Gases - Discussion Discussion: Discussed risks/options/alternatives of anesthesia and questions answered. Patient consents. Nursing pain assessment noted. Present for Discussion: family member Attestation Statement: Prior to the delivery of any anesthetic medication, I examined the patient, developed the plan, obtained the patient's consent and discussed the risk and benefits of the procedure with the patient/guardian. - Additional Information Seen by Anesthesia: Yes
--- NOTE | 2017-01-09 14:38 | Echocardiogram ---
DATE OF PROCEDURE January 09, 2017 REFERRING PHYSICIAN Shelby Isaac MD This is a two-dimensional echo with spectral Doppler, color-flow and M-mode. It was obtained in a patient with hypotension and bradycardia. Left atrial dimension is normal. Left ventricle end-diastolic dimension is normal. Left ventricle wall thickness is at the upper limits of normal. LV systolic function is normal with ejection fraction of 65%. Right atrium is normal. Right ventricle is normal. Aortic root dimension is normal. Mitral valve annulus is calcified. Mitral valve leaflets are normal with moderate mitral regurgitation. Aortic valve is a trileaflet structure with no stenosis. Moderate aortic insufficiency is present. Tricuspid valve shows mild tricuspid regurgitation with mild pulmonary hypertension with estimated pulmonary artery systolic pressure of 41. Pulmonary valve shows mild pulmonary insufficiency. There is no pericardial effusion. IMPRESSION 1. Normal LV systolic function with ejection fraction of 65%. 2. Mitral annulus calcification with moderate mitral regurgitation. 3. Moderate aortic insufficiency. 4. Mild tricuspid regurgitation with mild pulmonary hypertension with estimated pulmonary artery systolic pressure of 41. 5. Mild pulmonary insufficiency. MTDD
[2017-01-09] MEDS ORDERED: PROPOFOL 20 ML ONE (14:42)
[2017-01-09] MEDS ORDERED: SEVOFLURANE 250ml LIQUID IH ONE (14:44)
[2017-01-09] MEDS ORDERED: FentaNYL 100 MCG/2 ML INJECTION ONE (14:44)
[2017-01-09] MEDS ORDERED: CLINDAMYCIN PB 900 MG/50 ML BAG IV SCH (14:45)
[2017-01-09] MEDS ORDERED: LIDOCAINE 1% (10mg/ml) 30ml SDV INJ ONE (15:31)
[2017-01-09] MEDS ORDERED: BUPIVACAINE 0.25%/EPI 1:200,000 30ml SDV ONE (15:31)
[2017-01-09] MEDS ORDERED: PROPOFOL 500 MG/50 ML VIAL IV ONE ×2 (15:43→16:20)
[2017-01-09] MEDS ORDERED: TRANEXAMIC ACID 1,000mg/10ml INJECTION ONE (15:51)
[2017-01-09] MEDS ORDERED: BUPIV 0.25% 30ml/LIDO 1% 30ml MIXTURE ID ONE (16:20)
[2017-01-09] MEDS ORDERED: EPHEDRINE 50mg/ml INJECTION ONE (16:33)
[2017-01-09] MEDS ORDERED: TRANEXAMIC ACID 1,000mg/10ml INJECTION IV ONE (16:45)
--- NOTE | 2017-01-09 17:27 | Operative Note ---
- Procedure Side: right Preoperative Diagnosis: 3-part introchanteric hip Postoperative Diagnosis: Same as preoperative diagnosis. Operation: CM fix of intertrochanteric hip fx Surgeon: Christa Falk MD Complications: None. Anesthesia: General TIVA Estimated Blood Loss: See Anesthesia Record. Fluids: Please see Anesthesia Record. Description of Procedure: Mrs. Beasley and her right hip were identified and marked in her hospital room bed. She is brought back to the operating suite and placed supine on a fracture table. She states under general anesthesia. An LMA was placed. Both feet were placed in well-padded traction boots the right leg was placed into traction and internal rotation and adduction left leg was placed into extension without traction. Right lower extremity was prepped and draped in my normal sterile fashion timeout was performed. Next She had a three-part and trochanteric hip fracture with a large medial calcar fragment which was displaced medially. There is also significant displacement despite traction at the main intertrochanteric fracture line. I made an incision at the level main fracture site and used a peek a door to help reduce the fracture. Used a bone hook to help bring the medial calcar piece closer. Then made a proximal incision 3 cm in length sharply and opened the proximal femur over guidepin. Division Operations Specialist held the fracture reduced with a peak over the bone hook I overreamed a long guidewire to a 12-1/2 and measured for a 340 mm gamma nail and placed the gamma nail over the guidewire. Again with the fracture was held reduced and placed a lag screw to the proximal femur and center center location to the femoral head. This was a 95 mm lag screw. It achieved an excellent bite. Traction was let off and I used the compression device to obtain compression at the fracture site. The nail was then locked proximally. The aiming arm was removed from multiple fluoroscopic images were taken to ensure good fracture reduction and hardware placement. The proximal wounds were irrigated and closed as x-ray obtained perfect circles of the distal bebe. I then placed 2 locking bolts using perfect [place] technique in the distal bebe through poke incisions. Final x-rays were taken all wounds were thoroughly irrigated and closed in layers and sterile dressings were placed. The drapes removed and she was allowed to awake from general anesthesia she was taken out of traction and taken back to the recovery room in the care of anesthesia.
[2017-01-09] MEDS ORDERED: HYDROMORPHONE 2 MG/ML INJECTION IVP PRN (17:39)
[2017-01-09] MEDS: NS 1,000 ML IV SCH (18:00)
[2017-01-09] MEDS ORDERED: LOSARTAN 50 MG TABLET PO ONE (18:36)
--- NOTE | 2017-01-09 19:11 | Anesthesia Postoperative Note ---
- Date and Time Date: 01/09/17 (n) Time: 19:11 - Status Patient Participated in Evaluation: Patient Participated in Person Vital Signs: Temperature 97.2 F 01/09/17 18:05 Pulse Rate 63 01/09/17 17:55 Respiratory Rate 12 01/09/17 17:55 Blood Pressure 172/79 H 01/09/17 17:55 Pulse Oximetry 100 01/09/17 17:55 Oxygen Delivery Method Nasal Cannula Oxygen Flow Rate 2 Respiratory Function: Airway Patent Cardiovascular Function: Regular Pulse EKG Rhythm: Normal Sinus Rhythm Mental Status: Alert and Oriented Pain Intensity: 4 Hydration: Taking PO Fluids, IV Infusing Complications During Recover: None Apparent - Follow-Up Instructions Instructions: Per Surgeon
[2017-01-09] MEDS: CLINDAMYCIN PB 600 MG/50 ML BAG IV SCH (22:46)
[2017-01-09] MEDS: SIMVASTATIN 40 MG TABLET PO SCH (22:46)
[2017-01-09] MEDS: APIXABAN 5 MG TABLET PO SCH (22:47)
[2017-01-10] MEDS: CLINDAMYCIN PB 600 MG/50 ML BAG IV SCH ×3 (03:45→15:48)
[2017-01-10] MEDS: HYDROCODONE/APAP 5mg/325mg TABLET PO PRN (06:09)
--- NOTE | 2017-01-10 08:36 | Orthopedic Progress Note ---
Date: Subjective/Severity of Illness: Danica has no complaints. Pain is worst with movement, but at it's peak she rates it at a 5. Sodium is 128 today. Orthopedic Objective PO Vital signs: Temperature 98.8 F 01/10/17 07:45 Pulse Rate 80 01/10/17 07:45 Respiratory Rate 16 01/10/17 07:45 Blood Pressure 130/67 01/10/17 07:45 Pulse Oximetry 92 01/10/17 07:45 Oxygen Delivery Method Room Air Oxygen Flow Rate 1 Height and Weight: Height 5 ft 3.5 in Weight 159 lb 6.307 oz Body Mass Index 31.3 - Constitutional General Appearance: Present: alert, no acute distress, well developed, well nourished - Respiratory Exam Present: non-labored - Cardiovascular Exam Present: pedal pulses intact Capillary Refill: < 2-3 Seconds - Abdominal Exam Absent: tenderness - Extremities Exam Extremities: Present: pulses intact. Absent: calf tenderness, extremity cold to touch - Hip Exam Hip Exam: Present: painful PROM (typical post op). Absent: abnormal rotation - Surgical Site Incision: clean, dry, intact - Integumentary Exam Present: pink, warm, dry - Neurological Exam Present: intact to light touch - Psychiatric Exam Present: alert, normal affect - Wound Management Right Hip Dressing Status: Dry & Intact Right Upper Lateral Knee Drainage Amount: None - Labs Result Diagrams: 01/10/17 04:21 01/10/17 04:21 Abnormal lab results 01/10/17 01/10/17 Range/Units 04:21 04:21 RBC 2.74 L (4.00-5.20) M/MM3 Hgb 8.2 L D (12-16) GM/DL Hct 24.4 L D (36-46) % MPV 8.7 L (9.4-12.4) UM3 Neut % (Auto) 71.6 H (33-66) % Lymph % (Auto) 13.7 L (23-45) % [place] % (Auto) 13.4 H (0-9.0) % [place] # 1.2 H (0-0.8) T/MM3 Sodium 128 L (134-144) MEQ/L Chloride 97 L (98-107) MEQ/L Glucose 128 H (65-110) MG/DL Calculated Osmolality 248 L (261-280) MOSM/KG Calcium 7.9 L (8.4-10.2) MG/DL H & H 01/08/17 01/09/17 01/10/17 Range/Units 20:46 04:06 04:21 Hgb 11.2 L 10.6 L 8.2 L D (12-16) GM/DL Hct 33.1 L 31.6 L 24.4 L D (36-46) % Orthopedic Assessment and Plan (1) Closed intertrochanteric fracture of right femur Status: Acute Qualifiers: Encounter type: initial encounter Fracture alignment: displaced Qualified Code(s): S72.141A - Displaced intertrochanteric fracture of right femur, initial encounter for closed fracture Assessment and Plan: continue medical management of hyponatremia WBAT, mobilize with PT/OT today DVT prevention with Eliquis and ASA on discharge 2 week follow up with Dr. Falk insurance healthcare consultant for discharge planning. Hospital Course Summary Disclaimer: The visit summary below is not to be considered part of the above Progress Note. Hospital Course: 01/08/17 hospitalist admission Assessment Right Intertrochanteric hip fracture-status post fall Skin tears and superficial abrasions right forearm and left elbow Hyponatremia (POA) Hypokalemia (POA) Hypertension Dyslipidemia Anticoagulation-started for syncopal episodes (questionable arrhythmia?) September 2015 Plan Admit to hospitalist team for inpatient hospital care with Dr. Falk consulting for surgery for right intertrochanteric hip fracture. Patient's Eliquis and aspirin will be put on hold given pending surgery. Dr. Isaac to reconcile home meds. Nurses to clean and dress skin tears/abrasions IV fluids for maintenance and to correct hyponatremia and hypokalemia. May consider holding hydrochlorothiazide. SCDs for DVT prophylaxis. Regular diet tonight. Nothing by mouth after midnight. CBC and BMP in a.m. prior to surgery Morphine IV, Tylenol and [place] by mouth when necessary for pain. Zofran for nausea. Pepcid for GI prophylaxis. Patient is hesitant to take PPIs and prefers Pepcid at home. Telemetry given history of syncopal episodes and possible cardiac arrhythmia Will further discuss plan of care with attending. Discussed patient's preference for CODE STATUS. Patient requests full resuscitation. This order is written. At time of patient's discharge, care will be returned to her PCP, Dr. Perez Bardales in [place] 01/09/17 08:55 01/08/2017-I reviewed this chart, the patient history, and the COURT CRIER's/PA's documented findings as above. We discussed and formulated the assessment and plan as above with the additions below.-Dr. Isaac The patient was seen this evening accompanied by one of her daughters. The patient states that she was watering her tripathi and got tangled up in her watering hose and tripped and fell. She states she did not hit her head that she is aware of. She denies any headache or neck discomfort. She has some scrapes on her elbows. Other than her right hip, she does not hurt anywhere else. She states she was in her normal state of health before her fall. She had been eating and drinking well. She has not had any weight changes. She denies any recent fevers, chills or sweats. She denies any recent Signs or symptoms of infection. She denies any chest pain or palpitations. She denies any shortness of breath. She denies nausea, vomiting, diarrhea or significant constipation. She denies any dysuria. She does take eliquis and aspirin. She took eliquis this morning and her second dose at 2pm. She states that she was told she could take this medication twice a day as long as it was 6 hours apart. She denies any abnormal bleeding since starting this medication. On exam she is alert and in no acute distress. She appears to be good historian. HEENT reveals sclerae to be anicteric and oropharynx is moist. Neck is supple. Chest is clear to auscultation. Cardiovascular reveals regular rate and rhythm without murmur, S3 or S4. Abdomen is soft and nontender. Extremities are free of edema. Right leg is inwardly rotated. Skin is warm and dry and without rashes. She has abrasions on her arms from her fall today. Impression Right hip fracture History of syncope, none for the past 1 year. Anticoagulation with eliquis for syncope thought to be secondary to arrhythmia hypertension hyperlipidemia hyponatremia hypokalemia leukocytosis without fever or symptoms of infection-likely up secondary to stress Plan Discussed with Dr. Falk. He plans for surgery tomorrow afternoon. The patient should be nothing by mouth after clear liquid breakfast tomorrow. Hold aspirin until close Blood pressure is quite elevated this evening. She takes her Toprol in the evenings and we will give her a dose now. She takes her losartan and hydrochlorothiazide in the mornings and those will be given tomorrow morning unless her blood pressure is low. Recheck CBC and basic metabolic profile tomorrow. The patient is uncertain if she has a DURABLE POWER OF RN LABOR AND DELIVERY for healthcare but she will talk with her children about this. If she does not have one, she will consider filling out DPOA paperwork
--- NOTE | 2017-01-10 08:58 | Remote Fluorsocopy Report ---
Indication: RT HIP FX PROCEDURE: RF hip RT 2 view: Encounter: Initial Comparison: Pelvis radiographs from yesterday Findings: Seven fluoroscopic spot images are submitted for interpretation. Images show open reduction and internal fixation of the right femoral fracture with placement of an intramedullary nail, compression screw and two distal interlocking screws. Improved alignment. Impression: Fluoroscopy as above. Fluoroscopy time is 232.6 seconds. Fluoroscopy dose is 5300 mRad. .
[2017-01-10] MEDS: LOSARTAN 50 MG TABLET PO SCH (09:00)
[2017-01-10] MEDS: FAMOTIDINE 20 MG TABLET PO SCH ×2 (09:00→20:14)
[2017-01-10] MEDS: ASPIRIN *EC* 81 MG TABLET PO SCH (09:01)
[2017-01-10] MEDS: APIXABAN 5 MG TABLET PO SCH ×2 (09:01→20:14)
[2017-01-10] MEDS: NS 1,000 ML IV SCH (11:21)
--- NOTE | 2017-01-10 14:20 | Cardiology Progress Note ---
Subjective Principal diagnosis: bradycardia, hypotension <Leigha Albert 01/10/17 14:23 > Interval history: Danica is seen in her room on the Surgical unit. She has no cardiac complaints. States she anticipates getting blood tomorrow. <Leigha Albert 01/10/17 14:23> Exam Vital signs: Temperature 97.7 F 01/13/17 11:40 Pulse Rate 87 01/13/17 12:44 Respiratory Rate 16 01/13/17 11:40 Blood Pressure 150/68 H 01/13/17 11:40 Pulse Oximetry 97 01/13/17 11:40 Oxygen Delivery Method Room Air Oxygen Flow Rate 1 <Candido Rojas - 01/14/17 15:16> Temperature 98.8 F 01/10/17 07:45 Pulse Rate 82 01/10/17 12:00 Respiratory Rate 16 01/10/17 07:45 Blood Pressure 130/67 01/10/17 07:45 Pulse Oximetry 92 01/10/17 07:45 Oxygen Delivery Method Room Air Oxygen Flow Rate 1 <Leigha Albert 01/10/17 14:23> - Constitutional no acute distress, cooperative <Leigha Albert 01/10/17 14:23> - Routine HEENT Exam Head: Present: normocephalic <Leigha Albert 01/10/17 14:23> ENT: Present: mucous membranes moist <Leigha Albert 01/10/17 14:23> - Routine Neck Exam Absent: JVD, carotid bruit <Leigha Albert 01/10/17 14:23> - Routine Chest/Breast/Axilla Exam Chest wall: Absent: tenderness <Leigha Albert 01/10/17 14:23> - Routine Respiratory Exam Present: CTA bilaterally. Absent: rales, wheezes <Leigha Albert 01/10/17 14:23> - Routine Cardiovascular Exam Present: RRR, no murmur. Absent: JVD <Leigha Albert 01/10/17 14:23> - Routine Abdominal Exam Present: soft, normoactive bowel sounds <Leigha Albert 01/10/17 14:23> - Routine Extremities Exam Present: no edema, pulses intact <Leigha Albert - 01/10/17 14:23> - Routine Skin Exam Present: intact, dry, warm <Leigha Albert - 01/10/17 14:23> - Routine Neurological Exam Present: alert, oriented X3 <Leigha Albert - 01/10/17 14:23> - Routine Psychiatric Exam Present: normal affect, normal thought process <Leigha Albert - 01/10/17 14: 23> - Additional findings Additional findings: Laboratory Results - last 48 hr 01/08/17 01/08/17 01/08/17 17:48 17:48 20:46 WBC 16.3 H 15.8 H RBC 4.27 3.77 L Hgb 12.4 11.2 L Hct 37.1 33.1 L MCV 86.9 87.8 MCH 29.0 29.7 MCHC 33.4 33.8 RDW Std Deviation 39.0 38.8 Plt Count 280 291 MPV 8.2 L 8.7 L Immature Gran % (Auto) Not performed Not performed Neut % (Auto) Not performed Not performed Lymph % (Auto) Not performed Not performed [place] % (Auto) Not performed Not performed Eos % (Auto) Not performed Not performed Baso % (Auto) Not performed Not performed Neut # Not performed Not performed Lymph # Not performed Not performed [place] # Not performed Not performed Eos # Not performed Not performed Baso # Not performed Not performed Abs Immat Gran (auto) Not performed Not performed Neutrophils % (Manual) 74.0 H 77.0 H Band Neutrophils % 5.0 7.0 H Lymphocytes % (Manual) 12.0 L 12.0 L Monocytes % (Manual) 6.0 3.0 Eosinophils % (Manual) 2.0 1.0 Basophils % (Manual) 1.0 Neutrophils # (Manual) 12.1 H 12.2 H Band Neutrophils # 0.8 1.1 Lymphocytes # (Manual) 2.0 1.9 Monocytes # (Manual) 1.0 H 0.5 Eosinophils # (Manual) 0.3 0.2 Basophils # (Manual) 0.2 RBC Morph Comment Normal Normal Turbidity < 20 Sodium 133 L Potassium 3.3 L Chloride 96 L Carbon Dioxide 25 Anion Gap 12 BUN 12.0 Creatinine 0.7 GFR Calculation 81 BUN/Creatinine Ratio 17 Glucose 109 Calculated Osmolality 257 L Calcium 9.1 Magnesium Icterus Index < 2 Troponin I Specimen Hemolysis < 15 Ur Collection Type Urine Color Urine Clarity Urine pH Ur Specific [place] Urine Protein Urine Glucose (UA) Urine Ketones Urine Occult Blood Urine Nitrate Urine Bilirubin Urine Urobilinogen Ur Leukocyte Esterase Urine RBC Urine WBC Urine Bacteria Ur Culture Indicated? Blood Type Antibody Screen 01/08/17 01/08/17 01/08/17 20:46 20:46 20:46 WBC RBC Hgb Hct MCV MCH MCHC RDW Std Deviation Plt Count MPV Immature Gran % (Auto) Neut % (Auto) Lymph % (Auto) [place] % (Auto) Eos % (Auto) Baso % (Auto) Neut # Lymph # [place] # Eos # Baso # Abs Immat Gran (auto) Neutrophils % (Manual) Band Neutrophils % Lymphocytes % (Manual) Monocytes % (Manual) Eosinophils % (Manual) Basophils % (Manual) Neutrophils # (Manual) Band Neutrophils # Lymphocytes # (Manual) Monocytes # (Manual) Eosinophils # (Manual) Basophils # (Manual) RBC Morph Comment Turbidity < 20 Sodium 130 L Potassium 3.6 Chloride 97 L Carbon Dioxide 24 Anion Gap 9 BUN 12.0 Creatinine 0.6 L GFR Calculation 96 BUN/Creatinine Ratio 20 Glucose 130 H Calculated Osmolality 253 L Calcium 8.5 Magnesium 1.9 Icterus Index < 2 Troponin I < 0.012 Specimen Hemolysis 54 H Ur Collection Type Urine Color Urine Clarity Urine pH Ur Specific [place] Urine Protein Urine Glucose (UA) Urine Ketones Urine Occult Blood Urine Nitrate Urine Bilirubin Urine Urobilinogen Ur Leukocyte Esterase Urine RBC Urine WBC Urine Bacteria Ur Culture Indicated? Blood Type A Positive Antibody Screen Negative 01/08/17 01/09/17 01/09/17 22:46 04:06 04:06 WBC 8.3 D RBC 3.61 L Hgb 10.6 L Hct 31.6 L MCV 87.5 MCH 29.4 MCHC 33.5 RDW Std Deviation 38.6 Plt Count 259 MPV 9.0 L Immature Gran % (Auto) Neut % (Auto) Lymph % (Auto) [place] % (Auto) Eos % (Auto) Baso % (Auto) Neut # Lymph # [place] # Eos # Baso # Abs Immat Gran (auto) Neutrophils % (Manual) 69.0 H Band Neutrophils % 1.0 Lymphocytes % (Manual) 13.0 L Monocytes % (Manual) 16.0 H Eosinophils % (Manual) 1.0 Basophils % (Manual) Neutrophils # (Manual) 5.7 Band Neutrophils # 0.1 Lymphocytes # (Manual) 1.1 Monocytes # (Manual) 1.3 H Eosinophils # (Manual) 0.1 Basophils # (Manual) RBC Morph Comment Normal Turbidity < 20 Sodium 129 L Potassium 3.9 Chloride 94 L Carbon Dioxide 27 Anion Gap 8 BUN 11.0 Creatinine 0.6 L GFR Calculation 96 BUN/Creatinine Ratio 18 Glucose 117 H Calculated Osmolality 249 L Calcium 8.5 Magnesium Icterus Index < 2 Troponin I Specimen Hemolysis < 15 Ur Collection Type Urine, [place] Urine Color Yellow Urine Clarity Clear Urine pH 6.5 Ur Specific [place] 1.015 Urine Protein Negative Urine Glucose (UA) Negative Urine Ketones 1+ A Urine Occult Blood 1+ A Urine Nitrate Negative Urine Bilirubin Negative Urine Urobilinogen 0.2 Ur Leukocyte Esterase 2+ A Urine RBC 1-3 Urine WBC 5-10 H Urine Bacteria None seen Ur Culture Indicated? Cult not indicated Blood Type Antibody Screen 01/10/17 01/10/17 04:21 04:21 WBC 9.1 RBC 2.74 L Hgb 8.2 L D Hct 24.4 L D MCV 89.1 MCH 29.9 MCHC 33.6 RDW Std Deviation 39.0 Plt Count 221 MPV 8.7 L Immature Gran % (Auto) 0.2 Neut % (Auto) 71.6 H Lymph % (Auto) 13.7 L [place] % (Auto) 13.4 H Eos % (Auto) 0.8 Baso % (Auto) 0.3 Neut # 6.5 Lymph # 1.2 [place] # 1.2 H Eos # 0.1 Baso # 0.0 Abs Immat Gran (auto) 0.02 Neutrophils % (Manual) Band Neutrophils % Lymphocytes % (Manual) Monocytes % (Manual) Eosinophils % (Manual) Basophils % (Manual) Neutrophils # (Manual) Band Neutrophils # Lymphocytes # (Manual) Monocytes # (Manual) Eosinophils # (Manual) Basophils # (Manual) RBC Morph Comment Turbidity < 20 Sodium 128 L Potassium 3.9 Chloride 97 L Carbon Dioxide 26 Anion Gap 5 BUN 10.0 Creatinine 0.7 GFR Calculation 81 BUN/Creatinine Ratio 14 Glucose 128 H Calculated Osmolality 248 L Calcium 7.9 L Magnesium Icterus Index < 2 Troponin I Specimen Hemolysis < 15 Ur Collection Type Urine Color Urine Clarity Urine pH Ur Specific [place] Urine Protein Urine Glucose (UA) Urine Ketones Urine Occult Blood Urine Nitrate Urine Bilirubin Urine Urobilinogen Ur Leukocyte Esterase Urine RBC Urine WBC Urine Bacteria Ur Culture Indicated? Blood Type Antibody Screen Acetaminophen (Tylenol) 500 mg PO Q5H PRN PRN Reason: Discomfort Acetaminophen/Hydrocodone Bitart ([place] 5/325) 1 - 2 tab PO Q4H PRN PRN Reason: Pain Last Admin: 01/10/17 06:09 Dose: 1 tab Apixaban (Eliquis) 5 mg PO BID [facility] Last Admin: 01/10/17 09:01 Dose: 5 mg Aspirin (Ecotrin) 81 mg PO DAILY [facility] Last Admin: 01/10/17 09:01 Dose: 81 mg Bacitracin (Bacitracin Oint) 1 applic TOP PRN PRN PRN Reason: TO ABRASIONS ON ARMS Last Admin: 01/09/17 04:32 Dose: 1 applic Famotidine (Pepcid) 20 mg PO BID [facility] Last Admin: 01/10/17 09:00 Dose: 20 mg Clindamycin Phosphate (Cleocin Premix) 600 mg in 50 mls @ 100 mls/hr IV Q6H [facility] Stop: 01/10/17 21:29 Last Infusion: 01/10/17 09:31 Dose: Infused Losartan Potassium (Cozaar) 50 mg PO DAILY [facility] Last Admin: 01/10/17 09:00 Dose: 50 mg Metoprolol Tartrate (Lopressor) 25 mg PO BIDWM [facility] Morphine Sulfate (Morphine Sulfate Inj) 1 - 2 mg IVP Q2H PRN PRN Reason: Pain Last Admin: 01/09/17 21:28 Dose: 2 mg Ondansetron HCl (Zofran) 4 mg IVP Q6H PRN PRN Reason: Nausea &/or vomiting Last Admin: 01/08/17 20:42 Dose: 4 mg Simvastatin (Zocor) 40 mg PO 2100 [facility] Last Admin: 01/09/17 22:46 Dose: 40 mg Sodium Chloride (Iv Flush) 10 - 80 ml IVF PRN PRN PRN Reason: Flushing Last Admin: 01/09/17 22:57 Dose: 10 ml <Leigha Albert - 01/10/17 14:27> - Urinary Catheter Management Urethral Cath placed during this visit: no <Candido Rojas - 01/14/17 15:16> yes <Leigha Albert 01/11/17 13:24> Urethral indwelling: Yes <Leigha Alebrt 01/11/17 13:24> Reason for continuing: Prolonged Immobilization <Leigha Albert 01/11/17 13: 24> Insertion date: 01/08/17 <Leigha Albert 01/10/17 14:23> Insertion time: 21:45 <Leigha Albert 01/10/17 14:23> Progress Note-A&P (1) Trochanteric fracture of right femur Status: Acute (2) Hypotension, iatrogenic Status: Acute (3) Hypertension Status: Chronic (4) Bradycardia Status: Acute (5) Hyperlipemia Status: Acute <CrystalCandido 01/14/17 15:16> (1) Trochanteric fracture of right femur Status: Acute (2) Hypotension, iatrogenic Status: Acute (3) Hypertension Status: Acute Assessment and plan: Start low dose BB: Metoprolol Tartrate 25mg PO BID (4) Bradycardia Status: Acute (5) Hyperlipemia Status: Acute <Leigha Albert 01/11/17 13:23> - Time Spent With Patient Total time spent is greater than 50% in coordination of care (as documented) at patient's floor/unit and/or counseling patient: <Lamont Rojassein 01/14/17 15:16> Total time spent is greater than 50% in coordination of care (as documented) at patient's floor/unit and/or counseling patient: <Leigha Albert 01/10/17 14:23> less than 15 minutes <Leigha Albert 01/10/17 14:23> - Attestation Attestation Narrative: Recommendation After examining the patient I agree with the above assessment. I am involved in the formulation of the patient's plan of care. <CrystalCandido 01/14/17 15:16> Sepsis Assessment - Evaluation Sepsis screening result: No Definite Risk <Leigha Albert 01/10/17 14:23> Hospital Course Summary Disclaimer: The visit summary below is not to be considered part of the above Progress Note. <Candido Rojas 01/14/17 15:16> The visit summary below is not to be considered part of the above Progress Note. <Leigha Albert M - 01/10/17 14:23> Hospital Course: 01/08/17 hospitalist admission Assessment Right Intertrochanteric hip fracture-status post fall Skin tears and superficial abrasions right forearm and left elbow Hyponatremia (POA) Hypokalemia (POA) Hypertension Dyslipidemia Anticoagulation-started for syncopal episodes (questionable arrhythmia?) September 2015 Plan Admit to hospitalist team for inpatient hospital care with Dr. Falk consulting for surgery for right intertrochanteric hip fracture. Patient's Eliquis and aspirin will be put on hold given pending surgery. Dr. Isaac to reconcile home meds. Nurses to clean and dress skin tears/abrasions IV fluids for maintenance and to correct hyponatremia and hypokalemia. May consider holding hydrochlorothiazide. SCDs for DVT prophylaxis. Regular diet tonight. Nothing by mouth after midnight. CBC and BMP in a.m. prior to surgery Morphine IV, Tylenol and [place] by mouth when necessary for pain. Zofran for nausea. Pepcid for GI prophylaxis. Patient is hesitant to take PPIs and prefers Pepcid at home. Telemetry given history of syncopal episodes and possible cardiac arrhythmia Will further discuss plan of care with attending. Discussed patient's preference for CODE STATUS. Patient requests full resuscitation. This order is written. At time of patient's discharge, care will be returned to her PCP, Dr. Perez Bardales in [place] 01/09/17 08:55 01/08/2017-I reviewed this chart, the patient history, and the [employer]PERATIONS ENGINEER's/PA's documented findings as above. We discussed and formulated the assessment and plan as above with the additions below.-Dr. Isaac The patient was seen this evening accompanied by one of her daughters. The patient states that she was watering her tripathi and got tangled up in her watering hose and tripped and fell. She states she did not hit her head that she is aware of. She denies any headache or neck discomfort. She has some scrapes on her elbows. Other than her right hip, she does not hurt anywhere else. She states she was in her normal state of health before her fall. She had been eating and drinking well. She has not had any weight changes. She denies any recent fevers, chills or sweats. She denies any recent Signs or symptoms of infection. She denies any chest pain or palpitations. She denies any shortness of breath. She denies nausea, vomiting, diarrhea or significant constipation. She denies any dysuria. She does take eliquis and aspirin. She took eliquis this morning and her second dose at 2pm. She states that she was told she could take this medication twice a day as long as it was 6 hours apart. She denies any abnormal bleeding since starting this medication. On exam she is alert and in no acute distress. She appears to be good historian. HEENT reveals sclerae to be anicteric and oropharynx is moist. Neck is supple. Chest is clear to auscultation. Cardiovascular reveals regular rate and rhythm without murmur, S3 or S4. Abdomen is soft and nontender. Extremities are free of edema. Right leg is inwardly rotated. Skin is warm and dry and without rashes. She has abrasions on her arms from her fall today. Impression Right hip fracture History of syncope, none for the past 1 year. Anticoagulation with eliquis for syncope thought to be secondary to arrhythmia hypertension hyperlipidemia hyponatremia hypokalemia leukocytosis without fever or symptoms of infection-likely up secondary to stress Plan Discussed with Dr. Falk. He plans for surgery tomorrow afternoon. The patient should be nothing by mouth after clear liquid breakfast tomorrow. Hold aspirin until close Blood pressure is quite elevated this evening. She takes her Toprol in the evenings and we will give her a dose now. She takes her losartan and hydrochlorothiazide in the mornings and those will be given tomorrow morning unless her blood pressure is low. Recheck CBC and basic metabolic profile tomorrow. The patient is uncertain if she has a DURABLE POWER OF WIRE TAPER for healthcare but she will talk with her children about this. If she does not have one, she will consider filling out DPOA paperwork 01/09/17 Cardiology Hypotension, iatrogenic Since her HR and BP both dropped simultaneously - likely iatrogenic due to medications and vagal response due to pain. Recuperated. Now she is hypertensive. cont home BP meds. Trochanteric fracture of right femur Dr. Falk consulted per Dr. Isaac for possible surgery today. Eliquis and ASA on hold for surgery. Hypertension Cont home meds: Toprol 100mg qhs and losartan in am. Hold HCTZ as she will be NPO for surgery. She has been taking these meds for yrs. Bradycardia Likely vagal response due to pain and iatrogenic due to meds. HR 49 to 50's last night - sleeping and receiving pain meds. Monitor telemetry. Hyperlipemia cont statin - managed by PCP 01/10/17 Cardiology HTN: Start low dose BB: Metoprolol Tartrate 25mg PO BID. Continue to monitor V/S , cardiac telemetry <Leigha Albert - 01/10/17 14:23>
--- NOTE | 2017-01-10 14:37 | Progress Note ---
Subjective: Patient states that she's feeling okay today. She denies any chest pain or shortness of breath. She denies any nausea. She is eating and drinking okay. Losartan was increased and beta gema is currently on hold. She has not had any further episodes of bradycardia or hypotension. She is a little confused after surgery and states her eyes feel heavy. Otherwise she has no complaints. Cheng catheter is still in place. She is passing gas but has not had a bowel movement. Objective Vital signs: Temperature 98.8 F 01/10/17 07:45 Pulse Rate 82 01/10/17 12:00 Respiratory Rate 16 01/10/17 07:45 Blood Pressure 130/67 01/10/17 07:45 Pulse Oximetry 92 01/10/17 07:45 Oxygen Delivery Method Room Air Oxygen Flow Rate 1 Rhythm: Normal Sinus Rhythm Height/Weight/BMI: Height 1.61 m Weight 72.3 kg Body Mass Index 31.3 Comments: GEN-alert, oriented, no acute distress HEENT-sclera anicteric, oropharynx is moist NECK-supple CV-regular rate and rhythm CHEST-clear to auscultation bilaterally ABD-soft, nontender with positive bowel sounds -Cheng in place with good urine output EXT-no edema NEURO-no focal deficits SKIN-warm and dry and without rashes Results - Labs CBC & Chem 7: 01/10/17 04:21 01/10/17 04:21 Assessment and Plan (1) Trochanteric fracture of right femur Current visit: Yes Status: Acute Assessment and Plan: 01/10/2017-Dr. Isaac Impression Episode of hypotension and bradycardia 01/08/2017 15 minutes post receiving Toprol, resolved after 20-30 minutes with IV fluids wide open. No recurrence Postop day 1 status post CM fix of right intertrochanteric hip fracture History of syncope, none for the past 1 year. Anticoagulation with eliquis for syncope thought to be secondary to arrhythmia hypertension-better controlled today hyperlipidemia hyponatremia- hypokalemia-resolved, magnesium is normal leukocytosis without fever or symptoms of infection-resolved, was most likely secondary to stress ABLA-monitor (hemoglobin dropped from 12.4 on admission to 8.2 today.) Hemodynamically stable Plan Discussed with Dr. Rojas last night. We'll keep Toprol on hold due to hypotension and bradycardia the night of admission. Cozaar was increased from 25 mg a day to 50 mg a day and will need to continue to monitor blood pressure closely. Hydrochlorothiazide is on hold due to hyponatremia. DC IV fluids Recheck CBC and basic metabolic profile tomorrow. Family wishes for the patient to go to inpatient rehabilitation when stable for discharge. After that, plan is for the patient to move to [place] to live with one of her daughters. Discussed with nurse and case management. Sepsis Assessment - Evaluation Sepsis screening result: No Definite Risk Hospital Course Summary Disclaimer: The visit summary below is not to be considered part of the above Progress Note. Hospital Course: 01/08/17 hospitalist admission Assessment Right Intertrochanteric hip fracture-status post fall Skin tears and superficial abrasions right forearm and left elbow Hyponatremia (POA) Hypokalemia (POA) Hypertension Dyslipidemia Anticoagulation-started for syncopal episodes (questionable arrhythmia?) September 2015 Plan Admit to hospitalist team for inpatient hospital care with Dr. Falk consulting for surgery for right intertrochanteric hip fracture. Patient's Eliquis and aspirin will be put on hold given pending surgery. Dr. Isaac to reconcile home meds. Nurses to clean and dress skin tears/abrasions IV fluids for maintenance and to correct hyponatremia and hypokalemia. May consider holding hydrochlorothiazide. SCDs for DVT prophylaxis. Regular diet tonight. Nothing by mouth after midnight. CBC and BMP in a.m. prior to surgery Morphine IV, Tylenol and [place] by mouth when necessary for pain. Zofran for nausea. Pepcid for GI prophylaxis. Patient is hesitant to take PPIs and prefers Pepcid at home. Telemetry given history of syncopal episodes and possible cardiac arrhythmia Will further discuss plan of care with attending. Discussed patient's preference for CODE STATUS. Patient requests full resuscitation. This order is written. At time of patient's discharge, care will be returned to her PCP, Dr. Perez Bardales in [place] 01/09/17 08:55 01/08/2017-I reviewed this chart, the patient history, and the NEEDLE LEADER's/PA's documented findings as above. We discussed and formulated the assessment and plan as above with the additions below.-Dr. Isaac The patient was seen this evening accompanied by one of her daughters. The patient states that she was watering her tripathi and got tangled up in her watering hose and tripped and fell. She states she did not hit her head that she is aware of. She denies any headache or neck discomfort. She has some scrapes on her elbows. Other than her right hip, she does not hurt anywhere else. She states she was in her normal state of health before her fall. She had been eating and drinking well. She has not had any weight changes. She denies any recent fevers, chills or sweats. She denies any recent Signs or symptoms of infection. She denies any chest pain or palpitations. She denies any shortness of breath. She denies nausea, vomiting, diarrhea or significant constipation. She denies any dysuria. She does take eliquis and aspirin. She took eliquis this morning and her second dose at 2pm. She states that she was told she could take this medication twice a day as long as it was 6 hours apart. She denies any abnormal bleeding since starting this medication. On exam she is alert and in no acute distress. She appears to be good historian. HEENT reveals sclerae to be anicteric and oropharynx is moist. Neck is supple. Chest is clear to auscultation. Cardiovascular reveals regular rate and rhythm without murmur, S3 or S4. Abdomen is soft and nontender. Extremities are free of edema. Right leg is inwardly rotated. Skin is warm and dry and without rashes. She has abrasions on her arms from her fall today. Impression Right hip fracture History of syncope, none for the past 1 year. Anticoagulation with eliquis for syncope thought to be secondary to arrhythmia hypertension hyperlipidemia hyponatremia hypokalemia leukocytosis without fever or symptoms of infection-likely up secondary to stress Plan Discussed with Dr. Falk. He plans for surgery tomorrow afternoon. The patient should be nothing by mouth after clear liquid breakfast tomorrow. Hold aspirin until close Blood pressure is quite elevated this evening. She takes her Toprol in the evenings and we will give her a dose now. She takes her losartan and hydrochlorothiazide in the mornings and those will be given tomorrow morning unless her blood pressure is low. Recheck CBC and basic metabolic profile tomorrow. The patient is uncertain if she has a DURABLE POWER OF SMALL BUSINESS REPRESENTATIVE for healthcare but she will talk with her children about this. If she does not have one, she will consider filling out DPOA paperwork 01/09/2017-Dr. Isaac Impression Episode of hypotension and bradycardia last night, resolved after 20-30 minutes with IV fluids wide open. No recurrence Right hip fracture 01/08/2017 History of syncope, none for the past 1 year. Anticoagulation with eliquis for syncope thought to be secondary to arrhythmia- discussed yesterday with Dr Falk and he is aware. Last dose was approximately 2pm yesterday. hypertension-bp elevated overnight and this am. hyperlipidemia hyponatremia-worsened today with sodium of 129 after IV fluids yesterday hypokalemia-resolved, magnesium is normal leukocytosis without fever or symptoms of infection-resolved, was most likely secondary to stress ABLA-monitor (hemoglobin dropped from 12.4 yesterday to 10.6 today Plan Blood pressure is elevated this morning. We'll give her usual Cozaar dose. Per cardiology, from a cardiac standpoint, okay to proceed with surgery this afternoon. I agree that she seems appropriate for surgery later today. If she is stable perioperatively, she could likely return to the surgical floor post op. Recheck CBC and basic metabolic profile tomorrow. Hold hydrochlorothiazide due to hyponatremia Will notify Dr. Falk
[2017-01-10] MEDS: SIMVASTATIN 40 MG TABLET PO SCH (20:14)
[2017-01-10] MEDS: ACETAMINOPHEN 500 MG TABLET PO PRN (20:14)
[2017-01-11] MEDS: HYDROCODONE/APAP 5mg/325mg TABLET PO PRN ×2 (01:37→20:12)
[2017-01-11] MEDS ORDERED: NS FLUSH BAG 500ml IV PRN (08:17)
[2017-01-11] MEDS: LOSARTAN 50 MG TABLET PO SCH (08:30)
--- NOTE | 2017-01-11 08:30 | Progress Note ---
<Shital Rodriguez V - Last Filed: 01/11/17 08:14> Subjective: Danica is seen this morning following request from nursing staff. RN repots PT attempted to get Danica up and while sitting on the edge of the bed she had a near syncopal episode in which she became pale, diaphoretic. She was assisted back in bed. Upon my exam she remains very pale on color. She reports that she was lightheaded and weak during this episode. Cheng cath remains intact. Objective Vital signs: Temperature 97.9 F 01/11/17 03:45 Pulse Rate 83 01/11/17 03:45 Respiratory Rate 16 01/11/17 03:45 Blood Pressure 129/64 01/11/17 03:45 Pulse Oximetry 96 01/11/17 03:45 Oxygen Delivery Method Room Air Oxygen Flow Rate 1 Rhythm: Normal Sinus Rhythm Height/Weight/BMI: Height 1.61 m Weight 72.3 kg Body Mass Index 31.3 - Constitutional Present: well nourished, well developed - Routine HEENT Exam Eye: Present: EOMI, PERRL ENT: Present: mucous membranes moist, dentition normal - Routine Respiratory Exam Present: CTA bilaterally. Absent: wheezes - Routine Cardiovascular Exam Present: RRR, S1, S2. Absent: murmur - Routine Abdominal Exam Present: soft, normoactive bowel sounds, non distended. Absent: tenderness - Routine Extremities Exam Present: normal capillary refill - Routine Back/Spine/Pelvis Exam Back/Spine: Present: full ROM - Routine Skin Exam Present: intact, pallor, warm Comments: Diaphoretic - Routine Neurological Exam Present: alert, oriented X3, CN II-XII intact - Routine Lymphatic Exam Lymphatic: Absent: adenopathy - Routine Psychiatric Exam Present: normal affect, normal thought process Results - Labs CBC & Chem 7: 01/11/17 04:22 01/11/17 04:22 Assessment and Plan (1) Trochanteric fracture of right femur Current visit: Yes Status: Acute Assessment and Plan: Impression Episode of hypotension and bradycardia 01/08/2017 15 minutes post receiving Toprol, resolved after 20-30 minutes with IV fluids wide open. No recurrence Postop day 1 status post CM fix of right intertrochanteric hip fracture History of syncope, none for the past 1 year. Anticoagulation with eliquis for syncope thought to be secondary to arrhythmia hypertension-better controlled today hyperlipidemia hyponatremia- hypokalemia-resolved, magnesium is normal leukocytosis without fever or symptoms of infection-resolved, was most likely secondary to stress ABLA-monitor (hemoglobin dropped from 12.4 on admission to 7.1 today.) Hemodynamically stable Plan- 01/11 Given continued decrease in Hgb down to 7.1 accompanied with her symptoms of lightheadedness with position changes. Will transfuse 1 unit of packed RBCs Asked nursing staff to hold Lopressor and Cozaar this morning. Continue with [place] for pain control Will re-evaluate Danica later in the day. Case discussed with Orthopedic team- Vasyl, and attending Dr Cabral Sepsis Assessment - Evaluation Sepsis screening result: No Definite Risk Hospital Course Summary Disclaimer: The visit summary below is not to be considered part of the above Progress Note. Hospital Course: 01/08/17 hospitalist admission Assessment Right Intertrochanteric hip fracture-status post fall Skin tears and superficial abrasions right forearm and left elbow Hyponatremia (POA) Hypokalemia (POA) Hypertension Dyslipidemia Anticoagulation-started for syncopal episodes (questionable arrhythmia?) September 2015 Plan Admit to hospitalist team for inpatient hospital care with Dr. Falk consulting for surgery for right intertrochanteric hip fracture. Patient's Eliquis and aspirin will be put on hold given pending surgery. Dr. Isaac to reconcile home meds. Nurses to clean and dress skin tears/abrasions IV fluids for maintenance and to correct hyponatremia and hypokalemia. May consider holding hydrochlorothiazide. SCDs for DVT prophylaxis. Regular diet tonight. Nothing by mouth after midnight. CBC and BMP in a.m. prior to surgery Morphine IV, Tylenol and [place] by mouth when necessary for pain. Zofran for nausea. Pepcid for GI prophylaxis. Patient is hesitant to take PPIs and prefers Pepcid at home. Telemetry given history of syncopal episodes and possible cardiac arrhythmia Will further discuss plan of care with attending. Discussed patient's preference for CODE STATUS. Patient requests full resuscitation. This order is written. At time of patient's discharge, care will be returned to her PCP, Dr. Perez Bardales in [place] 01/09/17 08:55 01/08/2017-I reviewed this chart, the patient history, and the PSYCHOTHERAPIST SOCIAL WORKER's/PA's documented findings as above. We discussed and formulated the assessment and plan as above with the additions below.-Dr. Isaac The patient was seen this evening accompanied by one of her daughters. The patient states that she was watering her tripathi and got tangled up in her watering hose and tripped and fell. She states she did not hit her head that she is aware of. She denies any headache or neck discomfort. She has some scrapes on her elbows. Other than her right hip, she does not hurt anywhere else. She states she was in her normal state of health before her fall. She had been eating and drinking well. She has not had any weight changes. She denies any recent fevers, chills or sweats. She denies any recent Signs or symptoms of infection. She denies any chest pain or palpitations. She denies any shortness of breath. She denies nausea, vomiting, diarrhea or significant constipation. She denies any dysuria. She does take eliquis and aspirin. She took eliquis this morning and her second dose at 2pm. She states that she was told she could take this medication twice a day as long as it was 6 hours apart. She denies any abnormal bleeding since starting this medication. On exam she is alert and in no acute distress. She appears to be good historian. HEENT reveals sclerae to be anicteric and oropharynx is moist. Neck is supple. Chest is clear to auscultation. Cardiovascular reveals regular rate and rhythm without murmur, S3 or S4. Abdomen is soft and nontender. Extremities are free of edema. Right leg is inwardly rotated. Skin is warm and dry and without rashes. She has abrasions on her arms from her fall today. Impression Right hip fracture History of syncope, none for the past 1 year. Anticoagulation with eliquis for syncope thought to be secondary to arrhythmia hypertension hyperlipidemia hyponatremia hypokalemia leukocytosis without fever or symptoms of infection-likely up secondary to stress Plan Discussed with Dr. Falk. He plans for surgery tomorrow afternoon. The patient should be nothing by mouth after clear liquid breakfast tomorrow. Hold aspirin until close Blood pressure is quite elevated this evening. She takes her Toprol in the evenings and we will give her a dose now. She takes her losartan and hydrochlorothiazide in the mornings and those will be given tomorrow morning unless her blood pressure is low. Recheck CBC and basic metabolic profile tomorrow. The patient is uncertain if she has a DURABLE POWER OF INTEGRATED CIRCUIT DESIGN ENGINEER for healthcare but she will talk with her children about this. If she does not have one, she will consider filling out DPOA paperwork 01/09/2017-Dr. Isaac Impression Episode of hypotension and bradycardia last night, resolved after 20-30 minutes with IV fluids wide open. No recurrence Right hip fracture 01/08/2017 History of syncope, none for the past 1 year. Anticoagulation with eliquis for syncope thought to be secondary to arrhythmia- discussed yesterday with Dr Falk and he is aware. Last dose was approximately 2pm yesterday. hypertension-bp elevated overnight and this am. hyperlipidemia hyponatremia-worsened today with sodium of 129 after IV fluids yesterday hypokalemia-resolved, magnesium is normal leukocytosis without fever or symptoms of infection-resolved, was most likely secondary to stress ABLA-monitor (hemoglobin dropped from 12.4 yesterday to 10.6 today Plan Blood pressure is elevated this morning. We'll give her usual Cozaar dose. Per cardiology, from a cardiac standpoint, okay to proceed with surgery this afternoon. I agree that she seems appropriate for surgery later today. If she is stable perioperatively, she could likely return to the surgical floor post op. Recheck CBC and basic metabolic profile tomorrow. Hold hydrochlorothiazide due to hyponatremia Will notify Dr. Falk Plan- 01/11 Given continued decrease in Hgb down to 7.1 accompanied with her symptoms of lightheadedness with position changes. Will transfuse 1 unit of packed RBCs Asked nursing staff to hold Lopressor and Cozaar this morning. Continue with [place] for pain control Will re-evaluate [place] later in the day. Case discussed with Orthopedic team- Vasyl, and attending Dr Cabral <Joo Cabral - Last Filed: 01/11/17 17:10> Objective Vital signs: Temperature 98.7 F 01/11/17 15:43 Pulse Rate 82 01/11/17 15:44 Respiratory Rate 17 01/11/17 15:43 Blood Pressure 141/67 H 01/11/17 15:43 Pulse Oximetry 94 01/11/17 15:43 Oxygen Delivery Method Room Air Oxygen Flow Rate 1 Height/Weight/BMI: Height 1.61 m Weight 72.5 kg Body Mass Index 31.3 Results - Labs CBC & Chem 7: 01/11/17 15:20 01/11/17 04:22 Assessment and Plan (1) Trochanteric fracture of right femur Current visit: Yes Status: Acute DVT Prophylaxis: SCD's, Eliquis Resuscitation Status: Full Code Assessment and Plan: Impression Postop day 1 status post CM fix of right intertrochanteric hip fracture Episode of hypotension and bradycardia 01/08/2017 15 minutes post receiving Toprol, resolved after 20-30 minutes with IV fluids wide open. No recurrence History of syncope, none for the past 1 year. Anticoagulation with Eliquis for syncope thought to be secondary to arrhythmia Hypertension-better controlled today Hyperlipidemia Hyponatremia (POA) Hypokalemia (POA) -resolved, magnesium is normal Leukocytosis without fever or symptoms of infection-resolved, was most likely secondary to stress ABLA-monitor (hemoglobin dropped from 12.4 on admission to 7.1 today.) - Transfusion on 1 unit pRBC given 01/11 Have independently interviewed and examined pt. Chart reviewed. Case discussed with NAN and my PSYCHOTHERAPIST SOCIAL WORKER. Care plan developed with my supervision; agree with above. Rough morning but feeling better this afternoon. Breathing well. No chest pain. Appetite increasing. Not had bowel movement, but not feeling overtly constipated. Still with significant leg pain with movements-not hurting when at rest. Plan Transfused 1 unit pRBC this morning. Patient doing much better this afternoon- much less weak, dizzy, and unsteady. Recheck hemoglobin improved to 9.1. Continue with pain control. Encourage therapy. Possible IRU in the near future if continues to make improvements. - Time spent with patient 25 - 35 minutes Hospital Course Summary Disclaimer: The visit summary below is not to be considered part of the above Progress Note.
--- NOTE | 2017-01-11 09:53 | Orthopedic Progress Note ---
Date: Subjective/Severity of Illness: Danica was lightheaded when she sit up this AM. The symptoms resolved when she was put back to bed. She is going to get a unit of blood today. Denies having CP, cough or feeling SOA. No N/V. Her hip is painful with activity but she is comfortable at rest. Orthopedic Objective PO Vital signs: Temperature 97.9 F 01/11/17 03:45 Pulse Rate 96 01/11/17 08:00 Respiratory Rate 16 01/11/17 03:45 Blood Pressure 129/64 01/11/17 03:45 Pulse Oximetry 96 01/11/17 03:45 Oxygen Delivery Method Room Air Oxygen Flow Rate 1 Height and Weight: Height 5 ft 3.5 in Weight 159 lb 6.307 oz Body Mass Index 31.3 - Constitutional General Appearance: Present: alert, no acute distress - Respiratory Exam Present: non-labored - Cardiovascular Exam Present: pedal pulses intact Capillary Refill: < 2-3 Seconds - Abdominal Exam Present: tenderness - Extremities Exam Extremities: Present: pulses intact. Absent: calf tenderness - Hip Exam Hip Exam: Absent: abnormal rotation - Surgical Site Incision: clean, dry, intact, dressing intact, no drainage - Integumentary Exam Present: pink, warm, dry - Neurological Exam Present: no deficits - Psychiatric Exam Present: alert - Wound Management Right Hip Dressing Status: Dry & Intact Right Upper Lateral Knee Drainage Amount: None - Labs Result Diagrams: 01/11/17 04:22 01/11/17 04:22 Abnormal lab results 01/08/17 01/11/17 01/11/17 Range/Units 20:46 04:22 04:22 RBC 2.42 L (4.00-5.20) M/MM3 Hgb 7.1 L D (12-16) GM/DL Hct 21.4 L D (36-46) % MPV 8.7 L (9.4-12.4) UM3 Neut % (Auto) 67.6 H (33-66) % Lymph % (Auto) 14.7 L (23-45) % [place] % (Auto) 14.8 H (0-9.0) % [place] # 1.4 H (0-0.8) T/MM3 Sodium 129 L (134-144) MEQ/L Chloride 97 L (98-107) MEQ/L Creatinine 0.6 L (0.7-1.2) MG/DL Glucose 112 H (65-110) MG/DL Calculated Osmolality 248 L (261-280) MOSM/KG Calcium 7.9 L (8.4-10.2) MG/DL Albumin 3.0 L (3.5-5.0) G/DL Crossmatch (AHG) See Detail H & H 01/08/17 01/09/17 01/10/17 Range/Units 20:46 04:06 04:21 Hgb 11.2 L 10.6 L 8.2 L D (12-16) GM/DL Hct 33.1 L 31.6 L 24.4 L D (36-46) % 01/11/17 Range/Units 04:22 Hgb 7.1 L D (12-16) GM/DL Hct 21.4 L D (36-46) % Orthopedic Assessment and Plan (1) Closed intertrochanteric fracture of right femur Status: Acute Qualifiers: Encounter type: initial encounter Fracture alignment: displaced Qualified Code(s): S72.141A - Displaced intertrochanteric fracture of right femur, initial encounter for closed fracture Assessment and Plan: Continue to work on mobility. WBAT Eliquis and aspirin resumed which should cover her for dvt protection. SCDs in place. Pt will get blood today. She is hoping to go to IRU this weekend or first of the week. She should f/u with me, 2 weeks after discharge to home. Hospital Course Summary Disclaimer: The visit summary below is not to be considered part of the above Progress Note. Hospital Course: 01/08/17 hospitalist admission Assessment Right Intertrochanteric hip fracture-status post fall Skin tears and superficial abrasions right forearm and left elbow Hyponatremia (POA) Hypokalemia (POA) Hypertension Dyslipidemia Anticoagulation-started for syncopal episodes (questionable arrhythmia?) September 2015 Plan Admit to hospitalist team for inpatient hospital care with Dr. Falk consulting for surgery for right intertrochanteric hip fracture. Patient's Eliquis and aspirin will be put on hold given pending surgery. Dr. Isaac to reconcile home meds. Nurses to clean and dress skin tears/abrasions IV fluids for maintenance and to correct hyponatremia and hypokalemia. May consider holding hydrochlorothiazide. SCDs for DVT prophylaxis. Regular diet tonight. Nothing by mouth after midnight. CBC and BMP in a.m. prior to surgery Morphine IV, Tylenol and [place] by mouth when necessary for pain. Zofran for nausea. Pepcid for GI prophylaxis. Patient is hesitant to take PPIs and prefers Pepcid at home. Telemetry given history of syncopal episodes and possible cardiac arrhythmia Will further discuss plan of care with attending. Discussed patient's preference for CODE STATUS. Patient requests full resuscitation. This order is written. At time of patient's discharge, care will be returned to her PCP, Dr. Perez Bardales in [place] 01/09/17 08:55 01/08/2017-I reviewed this chart, the patient history, and the NATUROPATHIC ONCOLOGY PROVIDER's/PA's documented findings as above. We discussed and formulated the assessment and plan as above with the additions below.-Dr. Isaac The patient was seen this evening accompanied by one of her daughters. The patient states that she was watering her tripathi and got tangled up in her watering hose and tripped and fell. She states she did not hit her head that she is aware of. She denies any headache or neck discomfort. She has some scrapes on her elbows. Other than her right hip, she does not hurt anywhere else. She states she was in her normal state of health before her fall. She had been eating and drinking well. She has not had any weight changes. She denies any recent fevers, chills or sweats. She denies any recent Signs or symptoms of infection. She denies any chest pain or palpitations. She denies any shortness of breath. She denies nausea, vomiting, diarrhea or significant constipation. She denies any dysuria. She does take eliquis and aspirin. She took eliquis this morning and her second dose at 2pm. She states that she was told she could take this medication twice a day as long as it was 6 hours apart. She denies any abnormal bleeding since starting this medication. On exam she is alert and in no acute distress. She appears to be good historian. HEENT reveals sclerae to be anicteric and oropharynx is moist. Neck is supple. Chest is clear to auscultation. Cardiovascular reveals regular rate and rhythm without murmur, S3 or S4. Abdomen is soft and nontender. Extremities are free of edema. Right leg is inwardly rotated. Skin is warm and dry and without rashes. She has abrasions on her arms from her fall today. Impression Right hip fracture History of syncope, none for the past 1 year. Anticoagulation with eliquis for syncope thought to be secondary to arrhythmia hypertension hyperlipidemia hyponatremia hypokalemia leukocytosis without fever or symptoms of infection-likely up secondary to stress Plan Discussed with Dr. Falk. He plans for surgery tomorrow afternoon. The patient should be nothing by mouth after clear liquid breakfast tomorrow. Hold aspirin until close Blood pressure is quite elevated this evening. She takes her Toprol in the evenings and we will give her a dose now. She takes her losartan and hydrochlorothiazide in the mornings and those will be given tomorrow morning unless her blood pressure is low. Recheck CBC and basic metabolic profile tomorrow. 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 If she does not have one, she will consider filling out DPOA paperwork 01/09/2017-Dr. Isaac Impression Episode of hypotension and bradycardia last night, resolved after 20-30 minutes with IV fluids wide open. No recurrence Right hip fracture 01/08/2017 History of syncope, none for the past 1 year. Anticoagulation with eliquis for syncope thought to be secondary to arrhythmia- discussed yesterday with Dr Falk and he is aware. Last dose was approximately 2pm yesterday. hypertension-bp elevated overnight and this am. hyperlipidemia hyponatremia-worsened today with sodium of 129 after IV fluids yesterday hypokalemia-resolved, magnesium is normal leukocytosis without fever or symptoms of infection-resolved, was most likely secondary to stress ABLA-monitor (hemoglobin dropped from 12.4 yesterday to 10.6 today Plan Blood pressure is elevated this morning. We'll give her usual Cozaar dose. Per cardiology, from a cardiac standpoint, okay to proceed with surgery this afternoon. I agree that she seems appropriate for surgery later today. If she is stable perioperatively, she could likely return to the surgical floor post op. Recheck CBC and basic metabolic profile tomorrow. Hold hydrochlorothiazide due to hyponatremia Will notify Dr. Falk Plan- 8/25 Given continued decrease in Hgb down to 7.1 accompanied with her symptoms of lightheadedness with position changes. Will transfuse 1 unit of packed RBCs Asked nursing staff to hold Lopressor and Cozaar this morning. Continue with [place] for pain control Will re-evaluate Danica later in the day. Case discussed with Orthopedic team- Vasyl, and attending Dr Cabral
[2017-01-11] MEDS: ACETAMINOPHEN 500 MG TABLET PO PRN ×2 (10:07→15:24)
[2017-01-11] MEDS: FAMOTIDINE 20 MG TABLET PO SCH ×2 (10:08→21:17)
[2017-01-11] MEDS: APIXABAN 5 MG TABLET PO SCH ×2 (10:08→21:17)
[2017-01-11] MEDS: ASPIRIN *EC* 81 MG TABLET PO SCH (10:09)
--- NOTE | 2017-01-11 13:36 | Cardiology Progress Note ---
Subjective Principal diagnosis: bradycardia, hypotension <Leigha Albert 01/11/17 13:38 > Interval history: Danica is seen in her room on the Surgical unit where she is getting blood. She has no cardiac complaints. <Leigha Albert 01/11/17 15:51> Exam Vital signs: Temperature 97.7 F 01/13/17 11:40 Pulse Rate 87 01/13/17 12:44 Respiratory Rate 16 01/13/17 11:40 Blood Pressure 150/68 H 01/13/17 11:40 Pulse Oximetry 97 01/13/17 11:40 Oxygen Delivery Method Room Air Oxygen Flow Rate 1 <Candido Rojas - 01/14/17 15:19> Temperature 100.2 F 01/11/17 11:36 Pulse Rate 89 01/11/17 11:36 Respiratory Rate 16 01/11/17 11:36 Blood Pressure 150/71 H 01/11/17 11:36 Pulse Oximetry 98 01/11/17 11:36 Oxygen Delivery Method Room Air Oxygen Flow Rate 1 <Leigha Albert 01/11/17 13:38> - Constitutional no acute distress, cooperative <Leigha Albert 01/11/17 13:38> - Routine HEENT Exam Head: Present: normocephalic <Leigha Albert 01/11/17 13:38> ENT: Present: mucous membranes moist <Leigha Albert 01/11/17 13:38> - Routine Neck Exam Absent: JVD, carotid bruit <Leigha Albert 01/11/17 13:38> - Routine Chest/Breast/Axilla Exam Chest wall: Absent: tenderness <Leigha Albert 01/11/17 13:38> - Routine Respiratory Exam Present: CTA bilaterally. Absent: rales, wheezes <Leigha Albert 01/11/17 13:38> - Routine Cardiovascular Exam Present: RRR, no murmur. Absent: JVD <Leigha Albert 01/11/17 13:38> - Routine Abdominal Exam Present: soft, normoactive bowel sounds <Leigha Albert 01/11/17 13:38> - Routine Extremities Exam Present: edema <Leigha Albert 01/11/17 13:38> - Routine Skin Exam Present: intact, dry, warm <Leigha Albert - 01/11/17 13:38> - Routine Neurological Exam Present: alert, oriented X3 <Leigha Albert - 01/11/17 13:38> - Routine Psychiatric Exam Present: normal affect, normal thought process <Leigha Albert - 01/11/17 13: 38> - Additional findings Additional findings: Laboratory Results - last 48 hr 01/08/17 01/10/17 01/10/17 20:46 04:21 04:21 WBC 9.1 RBC 2.74 L Hgb 8.2 L D Hct 24.4 L D MCV 89.1 MCH 29.9 MCHC 33.6 RDW Std Deviation 39.0 Plt Count 221 MPV 8.7 L Immature Gran % (Auto) 0.2 Neut % (Auto) 71.6 H Lymph % (Auto) 13.7 L [place] % (Auto) 13.4 H Eos % (Auto) 0.8 Baso % (Auto) 0.3 Neut # 6.5 Lymph # 1.2 [place] # 1.2 H Eos # 0.1 Baso # 0.0 Abs Immat Gran (auto) 0.02 Turbidity < 20 Sodium 128 L Potassium 3.9 Chloride 97 L Carbon Dioxide 26 Anion Gap 5 BUN 10.0 Creatinine 0.7 GFR Calculation 81 BUN/Creatinine Ratio 14 Glucose 128 H Calculated Osmolality 248 L Calcium 7.9 L Phosphorus Icterus Index < 2 Albumin Specimen Hemolysis < 15 Blood Type A Positive Antibody Screen Negative Crossmatch (AHG) See Detail Blood Product Request 01/11/17 01/11/17 01/11/17 04:22 04:22 08:18 WBC 9.6 RBC 2.42 L Hgb 7.1 L D Hct 21.4 L D MCV 88.4 MCH 29.3 MCHC 33.2 RDW Std Deviation 37.6 Plt Count 235 MPV 8.7 L Immature Gran % (Auto) 0.3 Neut % (Auto) 67.6 H Lymph % (Auto) 14.7 L [place] % (Auto) 14.8 H Eos % (Auto) 2.2 Baso % (Auto) 0.4 Neut # 6.5 Lymph # 1.4 [place] # 1.4 H Eos # 0.2 Baso # 0.0 Abs Immat Gran (auto) 0.03 Turbidity < 20 Sodium 129 L Potassium 3.9 Chloride 97 L Carbon Dioxide 27 Anion Gap 5 BUN 7.0 Creatinine 0.6 L GFR Calculation 96 BUN/Creatinine Ratio 12 Glucose 112 H Calculated Osmolality 248 L Calcium 7.9 L Phosphorus 2.5 Icterus Index < 2 Albumin 3.0 L Specimen Hemolysis < 15 Blood Type Antibody Screen Crossmatch (AHG) Blood Product Request 1 unit pc issued Acetaminophen (Tylenol) 500 mg PO Q5H PRN PRN Reason: Discomfort Last Admin: 01/11/17 10:07 Dose: 500 mg Acetaminophen/Hydrocodone Bitart ([place] 5/325) 1 - 2 tab PO Q4H PRN PRN Reason: Pain Last Admin: 01/11/17 01:37 Dose: 1 tab Apixaban (Eliquis) 5 mg PO BID [facility] Last Admin: 01/11/17 10:08 Dose: 5 mg Aspirin (Ecotrin) 81 mg PO DAILY [facility] Last Admin: 01/11/17 10:09 Dose: 81 mg Bacitracin (Bacitracin Oint) 1 applic TOP PRN PRN PRN Reason: TO ABRASIONS ON ARMS Last Admin: 01/09/17 04:32 Dose: 1 applic Famotidine (Pepcid) 20 mg PO BID [facility] Last Admin: 01/11/17 10:08 Dose: 20 mg Losartan Potassium (Cozaar) 50 mg PO DAILY [facility] Last Admin: 01/11/17 08:30 Dose: Not Given Metoprolol Tartrate (Lopressor) 25 mg PO BIDWM [facility] Last Admin: 01/11/17 08:07 Dose: Not Given Morphine Sulfate (Morphine Sulfate Inj) 1 - 2 mg IVP Q2H PRN PRN Reason: Pain Last Admin: 01/09/17 21:28 Dose: 2 mg Ondansetron HCl (Zofran) 4 mg IVP Q6H PRN PRN Reason: Nausea &/or vomiting Last Admin: 01/08/17 20:42 Dose: 4 mg Simvastatin (Zocor) 40 mg PO 2100 [facility] Last Admin: 01/10/17 20:14 Dose: 40 mg Sodium Chloride (Iv Flush) 10 - 80 ml IVF PRN PRN PRN Reason: Flushing Last Admin: 01/09/17 22:57 Dose: 10 ml Sodium Chloride (Normal Saline) 500 ml IV PRN PRN Last Admin: 01/11/17 09:02 Dose: 500 ml <RooseveltLeigha 01/11/17 13:38> - Urinary Catheter Management Urethral Cath placed during this visit: no <Candido Rojas 01/14/17 15:19> yes <RooseveltLeigha singleton 01/11/17 15:52> Urethral indwelling: Yes <Leigha Albert 01/11/17 13:38> Reason for continuing: Prolonged Immobilization <Leigha Albert 01/11/17 15: 52> Insertion date: 01/08/17 <Leigha Albert 01/11/17 13:38> Insertion time: 21:45 <Leigha Albert 01/11/17 13:38> Progress Note-A&P (1) Trochanteric fracture of right femur Status: Acute (2) Hypotension, iatrogenic Status: Acute (3) Hypertension Status: Chronic (4) Bradycardia Status: Acute (5) Hyperlipemia Status: Acute <ElizabethhongaguilarCandido 01/14/17 15:19> (1) Trochanteric fracture of right femur Status: Acute (2) Hypotension, iatrogenic Status: Acute (3) Hypertension Status: Acute Assessment and plan: Increase Metoprolol to 50mg po BID (4) Bradycardia Status: Acute (5) Hyperlipemia Status: Acute <RooseveltLeigha 01/11/17 15:51> - Time Spent With Patient Total time spent is greater than 50% in coordination of care (as documented) at patient's floor/unit and/or counseling patient: <CrystalCandido 01/14/17 15:19> Total time spent is greater than 50% in coordination of care (as documented) at patient's floor/unit and/or counseling patient: <Leigha Albert 01/11/17 13:38> less than 15 minutes <Leigha Albert 01/11/17 15:52> - Attestation Attestation Narrative: Recommendation After examining the patient I agree with the above assessment. I am involved in the formulation of the patient's plan of care. <Candiod Rojas 01/14/17 15:19> Sepsis Assessment - Evaluation Sepsis screening result: No Definite Risk <Leigha Albert - 01/11/17 13:38> Hospital Course Summary Disclaimer: The visit summary below is not to be considered part of the above Progress Note. <Candido Rojas - 01/14/17 15:19> The visit summary below is not to be considered part of the above Progress Note. <Leigha Albert - 01/11/17 13:38> Hospital Course: 01/08/17 hospitalist admission Assessment Right Intertrochanteric hip fracture-status post fall Skin tears and superficial abrasions right forearm and left elbow Hyponatremia (POA) Hypokalemia (POA) Hypertension Dyslipidemia Anticoagulation-started for syncopal episodes (questionable arrhythmia?) September 2015 Plan Admit to hospitalist team for inpatient hospital care with Dr. Falk consulting for surgery for right intertrochanteric hip fracture. Patient's Eliquis and aspirin will be put on hold given pending surgery. Dr. Isaac to reconcile home meds. Nurses to clean and dress skin tears/abrasions IV fluids for maintenance and to correct hyponatremia and hypokalemia. May consider holding hydrochlorothiazide. SCDs for DVT prophylaxis. Regular diet tonight. Nothing by mouth after midnight. CBC and BMP in a.m. prior to surgery Morphine IV, Tylenol and [place] by mouth when necessary for pain. Zofran for nausea. Pepcid for GI prophylaxis. Patient is hesitant to take PPIs and prefers Pepcid at home. Telemetry given history of syncopal episodes and possible cardiac arrhythmia Will further discuss plan of care with attending. Discussed patient's preference for CODE STATUS. Patient requests full resuscitation. This order is written. At time of patient's discharge, care will be returned to her PCP, Dr. Perez Bardales in [place] 01/09/17 08:55 01/08/2017-I reviewed this chart, the patient history, and the DIRECTOR IT PROJECT's/PA's documented findings as above. We discussed and formulated the assessment and plan as above with the additions below.-Dr. Isaac The patient was seen this evening accompanied by one of her daughters. The patient states that she was watering her tripathi and got tangled up in her watering hose and tripped and fell. She states she did not hit her head that she is aware of. She denies any headache or neck discomfort. She has some scrapes on her elbows. Other than her right hip, she does not hurt anywhere else. She states she was in her normal state of health before her fall. She had been eating and drinking well. She has not had any weight changes. She denies any recent fevers, chills or sweats. She denies any recent Signs or symptoms of infection. She denies any chest pain or palpitations. She denies any shortness of breath. She denies nausea, vomiting, diarrhea or significant constipation. She denies any dysuria. She does take eliquis and aspirin. She took eliquis this morning and her second dose at 2pm. She states that she was told she could take this medication twice a day as long as it was 6 hours apart. She denies any abnormal bleeding since starting this medication. On exam she is alert and in no acute distress. She appears to be good historian. HEENT reveals sclerae to be anicteric and oropharynx is moist. Neck is supple. Chest is clear to auscultation. Cardiovascular reveals regular rate and rhythm without murmur, S3 or S4. Abdomen is soft and nontender. Extremities are free of edema. Right leg is inwardly rotated. Skin is warm and dry and without rashes. She has abrasions on her arms from her fall today. Impression Right hip fracture History of syncope, none for the past 1 year. Anticoagulation with eliquis for syncope thought to be secondary to arrhythmia hypertension hyperlipidemia hyponatremia hypokalemia leukocytosis without fever or symptoms of infection-likely up secondary to stress Plan Discussed with Dr. Falk. He plans for surgery tomorrow afternoon. The patient should be nothing by mouth after clear liquid breakfast tomorrow. Hold aspirin until close Blood pressure is quite elevated this evening. She takes her Toprol in the evenings and we will give her a dose now. She takes her losartan and hydrochlorothiazide in the mornings and those will be given tomorrow morning unless her blood pressure is low. Recheck CBC and basic metabolic profile tomorrow. The patient is uncertain if she has a DURABLE POWER OF CHIEF QUALITY OFFICER for healthcare but she will talk with her children about this. If she does not have one, she will consider filling out DPOA paperwork 01/09/17 Cardiology Hypotension, iatrogenic Since her HR and BP both dropped simultaneously - likely iatrogenic due to medications and vagal response due to pain. Recuperated. Now she is hypertensive. cont home BP meds. Trochanteric fracture of right femur Dr. Falk consulted per Dr. Isaac for possible surgery today. Eliquis and ASA on hold for surgery. Hypertension Cont home meds: Toprol 100mg qhs and losartan in am. Hold HCTZ as she will be NPO for surgery. She has been taking these meds for yrs. Bradycardia Likely vagal response due to pain and iatrogenic due to meds. HR 49 to 50's last night - sleeping and receiving pain meds. Monitor telemetry. Hyperlipemia cont statin - managed by PCP 01/10/17 Cardiology HTN: Start low dose BB: Metoprolol Tartrate 25mg PO BID. Continue to monitor V/S , cardiac telemetry 01/11/17 Cardiology Increase Metoprolol to 50mg po BID <Leigha Albert - 01/11/17 15:51>
[2017-01-11] MEDS: SIMVASTATIN 40 MG TABLET PO SCH (21:17)
[2017-01-12] MEDS: LOSARTAN 50 MG TABLET PO SCH (08:24)
[2017-01-12] MEDS: ONDANSETRON 4 MG/2 ML INJECTION IVP PRN (08:37)
[2017-01-12] MEDS: ASPIRIN *EC* 81 MG TABLET PO SCH (09:40)
[2017-01-12] MEDS: APIXABAN 5 MG TABLET PO SCH (09:40)
[2017-01-12] MEDS: ACETAMINOPHEN 500 MG TABLET PO PRN ×2 (09:40→14:40)
[2017-01-12] MEDS: FAMOTIDINE 20 MG TABLET PO SCH ×2 (09:40→20:15)
--- NOTE | 2017-01-12 09:55 | Orthopedic Progress Note ---
Date: Subjective/Severity of Illness: no new complaints Orthopedic Objective Vital signs: Temperature 97.9 F 01/12/17 04:00 Pulse Rate 87 01/12/17 04:00 Respiratory Rate 15 01/12/17 04:00 Blood Pressure 169/77 H 01/12/17 04:00 Pulse Oximetry 95 01/12/17 00:00 Oxygen Delivery Method Room Air Oxygen Flow Rate 1 Height and Weight: Height 5 ft 3.5 in Weight 72.5 kg Body Mass Index 31.3 - Constitutional General Appearance: Present: alert, no acute distress - Respiratory Exam Present: non-labored - Cardiovascular Exam Present: pedal pulses intact - Extremities Exam Present: edema - Integumentary Exam Present: pink, warm, dry - Lymphatic Lymphatic: Absent: adenopathy - Neurological Exam Present: no deficits - Psychiatric Exam Present: alert - Wound Management Right Hip Dressing Status: Dry & Intact Right Upper Lateral Knee Drainage Amount: None - Labs Result Diagrams: 01/12/17 03:51 01/12/17 03:51 Abnormal lab results 01/08/17 01/11/17 01/12/17 Range/Units 20:46 15:20 03:51 RBC 2.76 L (4.00-5.20) M/MM3 Hgb 9.0 L D 8.1 L (12-16) GM/DL Hct 24.5 L D (36-46) % MPV 8.9 L (9.4-12.4) UM3 Lymph % (Auto) 17.7 L (23-45) % Payne % (Auto) 13.0 H (0-9.0) % Eos % (Auto) 6.3 H (0-4) % Payne # 1.3 H (0-0.8) T/MM3 Eos # 0.6 H (0-0.5) T/MM3 Abs Immat Gran (auto) 0.04 H (0.00-0.03) T/MM3 Sodium (134-144) MEQ/L Anion Gap (5-15) MEQ/L Creatinine (0.7-1.2) MG/DL Calculated Osmolality (261-280) MOSM/KG Calcium (8.4-10.2) MG/DL Crossmatch (AHG) See Detail 01/12/17 Range/Units 03:51 RBC (4.00-5.20) M/MM3 Hgb (12-16) GM/DL Hct (36-46) % MPV (9.4-12.4) UM3 Lymph % (Auto) (23-45) % Payne % (Auto) (0-9.0) % Eos % (Auto) (0-4) % Payne # (0-0.8) T/MM3 Eos # (0-0.5) T/MM3 Abs Immat Gran (auto) (0.00-0.03) T/MM3 Sodium 131 L (134-144) MEQ/L Anion Gap 4 L (5-15) MEQ/L Creatinine 0.6 L (0.7-1.2) MG/DL Calculated Osmolality 251 L (261-280) MOSM/KG Calcium 8.2 L (8.4-10.2) MG/DL Crossmatch (AHG) H & H 01/08/17 01/09/17 01/10/17 Range/Units 20:46 04:06 04:21 Hgb 11.2 L 10.6 L 8.2 L D (12-16) GM/DL Hct 33.1 L 31.6 L 24.4 L D (36-46) % 01/11/17 01/11/17 01/12/17 Range/Units 04:22 15:20 03:51 Hgb 7.1 L D 9.0 L D 8.1 L (12-16) GM/DL Hct 21.4 L D 24.5 L D (36-46) % Orthopedic Assessment and Plan (1) Closed intertrochanteric fracture of right femur Status: Acute Qualifiers: Encounter type: initial encounter Fracture alignment: displaced Qualified Code(s): S72.141A - Displaced intertrochanteric fracture of right femur, initial encounter for closed fracture Assessment and Plan: continue current treatment Hospital Course Summary Disclaimer: The visit summary below is not to be considered part of the above Progress Note. Hospital Course: 01/08/17 hospitalist admission Assessment Right Intertrochanteric hip fracture-status post fall Skin tears and superficial abrasions right forearm and left elbow Hyponatremia (POA) Hypokalemia (POA) Hypertension Dyslipidemia Anticoagulation-started for syncopal episodes (questionable arrhythmia?) September 2015 Plan Admit to hospitalist team for inpatient hospital care with Dr. Falk consulting for surgery for right intertrochanteric hip fracture. Patient's Eliquis and aspirin will be put on hold given pending surgery. Dr. Isaac to reconcile home meds. Nurses to clean and dress skin tears/abrasions IV fluids for maintenance and to correct hyponatremia and hypokalemia. May consider holding hydrochlorothiazide. SCDs for DVT prophylaxis. Regular diet tonight. Nothing by mouth after midnight. CBC and BMP in a.m. prior to surgery Morphine IV, Tylenol and [place] by mouth when necessary for pain. Zofran for nausea. Pepcid for GI prophylaxis. Patient is hesitant to take PPIs and prefers Pepcid at home. Telemetry given history of syncopal episodes and possible cardiac arrhythmia Will further discuss plan of care with attending. Discussed patient's preference for CODE STATUS. Patient requests full resuscitation. This order is written. At time of patient's discharge, care will be returned to her PCP, Dr. Perez Bardales in [place] 01/09/17 08:55 01/08/2017-I reviewed this chart, the patient history, and the FILING CLERK's/PA's documented findings as above. We discussed and formulated the assessment and plan as above with the additions below.-Dr. Isaac The patient was seen this evening accompanied by one of her daughters. The patient states that she was watering her tripathi and got tangled up in her watering hose and tripped and fell. She states she did not hit her head that she is aware of. She denies any headache or neck discomfort. She has some scrapes on her elbows. Other than her right hip, she does not hurt anywhere else. She states she was in her normal state of health before her fall. She had been eating and drinking well. She has not had any weight changes. She denies any recent fevers, chills or sweats. She denies any recent Signs or symptoms of infection. She denies any chest pain or palpitations. She denies any shortness of breath. She denies nausea, vomiting, diarrhea or significant constipation. She denies any dysuria. She does take eliquis and aspirin. She took eliquis this morning and her second dose at 2pm. She states that she was told she could take this medication twice a day as long as it was 6 hours apart. She denies any abnormal bleeding since starting this medication. On exam she is alert and in no acute distress. She appears to be good historian. HEENT reveals sclerae to be anicteric and oropharynx is moist. Neck is supple. Chest is clear to auscultation. Cardiovascular reveals regular rate and rhythm without murmur, S3 or S4. Abdomen is soft and nontender. Extremities are free of edema. Right leg is inwardly rotated. Skin is warm and dry and without rashes. She has abrasions on her arms from her fall today. Impression Right hip fracture History of syncope, none for the past 1 year. Anticoagulation with eliquis for syncope thought to be secondary to arrhythmia hypertension hyperlipidemia hyponatremia hypokalemia leukocytosis without fever or symptoms of infection-likely up secondary to stress Plan Discussed with Dr. Falk. He plans for surgery tomorrow afternoon. The patient should be nothing by mouth after clear liquid breakfast tomorrow. Hold aspirin until close Blood pressure is quite elevated this evening. She takes her Toprol in the evenings and we will give her a dose now. She takes her losartan and hydrochlorothiazide in the mornings and those will be given tomorrow morning unless her blood pressure is low. Recheck CBC and basic metabolic profile tomorrow. The patient is uncertain if she has a DURABLE POWER OF SMOKING PIPE LINER for healthcare but she will talk with her children about this. If she does not have one, she will consider filling out DPOA paperwork 01/09/17 Cardiology Hypotension, iatrogenic Since her HR and BP both dropped simultaneously - likely iatrogenic due to medications and vagal response due to pain. Recuperated. Now she is hypertensive. cont home BP meds. Trochanteric fracture of right femur Dr. Falk consulted per Dr. Isaac for possible surgery today. Eliquis and ASA on hold for surgery. Hypertension Cont home meds: Toprol 100mg qhs and losartan in am. Hold HCTZ as she will be NPO for surgery. She has been taking these meds for yrs. Bradycardia Likely vagal response due to pain and iatrogenic due to meds. HR 49 to 50's last night - sleeping and receiving pain meds. Monitor telemetry. Hyperlipemia cont statin - managed by PCP 01/10/17 Cardiology HTN: Start low dose BB: Metoprolol Tartrate 25mg PO BID. Continue to monitor V/S , cardiac telemetry 01/11/17 Cardiology Increase Metoprolol to 50mg po BID
[2017-01-12] MEDS: BACITRACIN OINT 15 GM TOP PRN (11:02)
[2017-01-12] MEDS ORDERED: FUROSEMIDE 20 MG/2 ML INJECTION IVP ONE (12:08)
--- NOTE | 2017-01-12 12:13 | Progress Note ---
<Marybeth Almanza - Last Filed: 01/12/17 12:10> Subjective: Danica is seen today in follow up. She is up in chair. Family is at bedside. They report that pt. had a near-syncopal episode when getting up. She became unsteady and very dizzy "saw black spots". They report that BP dropped low when she was up as well. SBP varies from 160's to low 100's. Some dip in HR noted at night. She reports some weakness in left leg earlier, now resolved. Objective Vital signs: Temperature 97.1 F 01/12/17 08:28 Pulse Rate 94 01/12/17 10:55 Respiratory Rate 16 01/12/17 08:01 Blood Pressure 133/57 01/12/17 10:55 Pulse Oximetry 95 01/12/17 10:55 Oxygen Delivery Method Room Air Oxygen Flow Rate 1 Rhythm: Normal Sinus Rhythm Height/Weight/BMI: Height 1.61 m Weight 72.5 kg Body Mass Index 31.3 - Constitutional Present: no acute distress, cooperative - Routine HEENT Exam Head: Present: normocephalic, atraumatic Eye: Present: EOMI, PERRL, normal accommodation ENT: Present: mucous membranes moist - Routine Respiratory Exam Present: CTA bilaterally. Absent: accessory muscle use, dyspnea, rhonchi, wheezes, crackles - Routine Cardiovascular Exam Present: RRR, S1, S2, no murmur - Routine Abdominal Exam Present: soft, normoactive bowel sounds, non distended, non tender - Routine Exam Comments: Cheng cath- clear yellow urine. - Routine Extremities Exam Present: no edema, tenderness - Routine Musculoskeletal Exam Musculoskeletal: Present: no clubbing or cyanosis, normal strength, moving extremities well, limited range of motion (left leg) - Routine Skin Exam Present: intact, dry, warm - Routine Neurological Exam Present: alert, oriented X3, moving all extremities (Motor strength intact in all 4 ext. ). Absent: motor deficit, normal speech (Speech is bit hesitant at times, but she is fully alert and appropriate) - Routine Psychiatric Exam Present: normal affect, cooperative Results - Labs CBC & Chem 7: 01/12/17 03:51 01/12/17 03:51 Assessment and Plan (1) Trochanteric fracture of right femur Current visit: Yes Status: Acute DVT Prophylaxis: Eliquis GI Prophylaxis: Pepcid Resuscitation Status: Full Code Assessment and Plan: Impression Postop day 2 status post CM fix of right intertrochanteric hip fracture Episode of hypotension and bradycardia 01/08/2017 15 minutes post receiving Toprol, resolved after 20-30 minutes with IV fluids wide open. No recurrence History of syncope, none for the past 1 year. Anticoagulation with Eliquis for syncope thought to be secondary to arrhythmia Hypertension Hyperlipidemia Hyponatremia (POA) Hypokalemia (POA) -resolved, magnesium is normal Leukocytosis without fever or symptoms of infection-resolved, was most likely secondary to stress ABLA-monitor (hemoglobin dropped from 12.4 on admission to 7.1 today.) - Transfusion on 1 unit pRBC given 01/11 Near syncope with orthostatic hypotension. Plan: 01/12/17- Significant, symptomatic orthostatic hypotension. Hold ARB. Hold metoprolol if standing BP less than 120. Treat standing BP. Continue telemetry- CV following. Given sx will give another unit of PRBC's this morning. HGB dropped a full gram since transfusion yesterday. Lasix/KCL x1 post blood. If anemia remains an issue, may need to hold Eliquis. Hyponatremia is stable. No fever or other acute s/sx of infection. She did feel that her left leg was a bit weaker earlier- that has resolved. If recurs, may need to consider CT of the head. Repeat labs in AM. - Time spent with patient 25 - 35 minutes Sepsis Assessment - Evaluation Sepsis screening result: No Definite Risk Hospital Course Summary Disclaimer: The visit summary below is not to be considered part of the above Progress Note. Hospital Course: 01/08/17 hospitalist admission Assessment Right Intertrochanteric hip fracture-status post fall Skin tears and superficial abrasions right forearm and left elbow Hyponatremia (POA) Hypokalemia (POA) Hypertension Dyslipidemia Anticoagulation-started for syncopal episodes (questionable arrhythmia?) September 2015 Plan Admit to hospitalist team for inpatient hospital care with Dr. Falk consulting for surgery for right intertrochanteric hip fracture. Patient's Eliquis and aspirin will be put on hold given pending surgery. Dr. Isaac to reconcile home meds. Nurses to clean and dress skin tears/abrasions IV fluids for maintenance and to correct hyponatremia and hypokalemia. May consider holding hydrochlorothiazide. SCDs for DVT prophylaxis. Regular diet tonight. Nothing by mouth after midnight. CBC and BMP in a.m. prior to surgery Morphine IV, Tylenol and [place] by mouth when necessary for pain. Zofran for nausea. Pepcid for GI prophylaxis. Patient is hesitant to take PPIs and prefers Pepcid at home. Telemetry given history of syncopal episodes and possible cardiac arrhythmia Will further discuss plan of care with attending. Discussed patient's preference for CODE STATUS. Patient requests full resuscitation. This order is written. At time of patient's discharge, care will be returned to her PCP, Dr. Perez Bardales in [place] 01/09/17 08:55 01/08/2017-I reviewed this chart, the patient history, and the SURVEY QUESTIONNAIRE DESIGNER's/PA's documented findings as above. We discussed and formulated the assessment and plan as above with the additions below.-Dr. Isaac The patient was seen this evening accompanied by one of her daughters. The patient states that she was watering her tripathi and got tangled up in her watering hose and tripped and fell. She states she did not hit her head that she is aware of. She denies any headache or neck discomfort. She has some scrapes on her elbows. Other than her right hip, she does not hurt anywhere else. She states she was in her normal state of health before her fall. She had been eating and drinking well. She has not had any weight changes. She denies any recent fevers, chills or sweats. She denies any recent Signs or symptoms of infection. She denies any chest pain or palpitations. She denies any shortness of breath. She denies nausea, vomiting, diarrhea or significant constipation. She denies any dysuria. She does take eliquis and aspirin. She took eliquis this morning and her second dose at 2pm. She states that she was told she could take this medication twice a day as long as it was 6 hours apart. She denies any abnormal bleeding since starting this medication. On exam she is alert and in no acute distress. She appears to be good historian. HEENT reveals sclerae to be anicteric and oropharynx is moist. Neck is supple. Chest is clear to auscultation. Cardiovascular reveals regular rate and rhythm without murmur, S3 or S4. Abdomen is soft and nontender. Extremities are free of edema. Right leg is inwardly rotated. Skin is warm and dry and without rashes. She has abrasions on her arms from her fall today. Impression Right hip fracture History of syncope, none for the past 1 year. Anticoagulation with eliquis for syncope thought to be secondary to arrhythmia hypertension hyperlipidemia hyponatremia hypokalemia leukocytosis without fever or symptoms of infection-likely up secondary to stress Plan Discussed with Dr. Falk. He plans for surgery tomorrow afternoon. The patient should be nothing by mouth after clear liquid breakfast tomorrow. Hold aspirin until close Blood pressure is quite elevated this evening. She takes her Toprol in the evenings and we will give her a dose now. She takes her losartan and hydrochlorothiazide in the mornings and those will be given tomorrow morning unless her blood pressure is low. Recheck CBC and basic metabolic profile tomorrow. The patient is uncertain if she has a DURABLE POWER OF SONG AND DANCE PERFORMER for healthcare but she will talk with her children about this. If she does not have one, she will consider filling out DPOA paperwork 01/09/17 Cardiology Hypotension, iatrogenic Since her HR and BP both dropped simultaneously - likely iatrogenic due to medications and vagal response due to pain. Recuperated. Now she is hypertensive. cont home BP meds. Trochanteric fracture of right femur Dr. Falk consulted per Dr. Isaac for possible surgery today. Eliquis and ASA on hold for surgery. Hypertension Cont home meds: Toprol 100mg qhs and losartan in am. Hold HCTZ as she will be NPO for surgery. She has been taking these meds for yrs. Bradycardia Likely vagal response due to pain and iatrogenic due to meds. HR 49 to 50's last night - sleeping and receiving pain meds. Monitor telemetry. Hyperlipemia cont statin - managed by PCP 01/10/17 Cardiology HTN: Start low dose BB: Metoprolol Tartrate 25mg PO BID. Continue to monitor V/S , cardiac telemetry 01/11/17 Cardiology Increase Metoprolol to 50mg po BID 01/12/17 12:19 01/12/17- Significant, symptomatic orthostatic hypotension. Hold ARB. Hold metoprolol if standing BP less than 120. Treat standing BP. Continue telemetry- CV following. Given sx will give another unit of PRBC's this morning. HGB dropped a full gram since transfusion yesterday. Lasix/KCL x1 post blood. If anemia remains an issue, may need to hold Eliquis. Hyponatremia is stable. No fever or other acute s/sx of infection. She did feel that her left leg was a bit weaker earlier- that has resolved. If recurs, may need to consider CT of the head. Repeat labs in AM. <Joo Cabral - Last Filed: 01/12/17 16:22> Objective Vital signs: Temperature 98.2 F 01/12/17 14:39 Pulse Rate 93 01/12/17 14:39 Respiratory Rate 16 01/12/17 14:39 Blood Pressure 129/65 01/12/17 14:39 Pulse Oximetry 94 01/12/17 14:39 Oxygen Delivery Method Room Air Oxygen Flow Rate 1 Height/Weight/BMI: Height 1.61 m Weight 72.5 kg Body Mass Index 31.3 Results - Labs CBC & Chem 7: 01/12/17 03:51 01/12/17 03:51 Assessment and Plan (1) Trochanteric fracture of right femur Current visit: Yes Status: Acute DVT Prophylaxis: SCD's Assessment and Plan: Impression Postop day 3 status post CM fix of right intertrochanteric hip fracture Episode of hypotension and bradycardia 01/08/2017 15 minutes post receiving Toprol, resolved after 20-30 minutes with IV fluids wide open. No recurrence History of syncope, none for the past 1 year. Anticoagulation with Eliquis for syncope thought to be secondary to arrhythmia Hypertension Hyperlipidemia Hyponatremia (POA) Hypokalemia (POA) -resolved, magnesium is normal Leukocytosis without fever or symptoms of infection-resolved, was most likely secondary to stress ABLA-monitor (hemoglobin dropped from 12.4 on admission to 7.1 today.) - Transfusion on 1 unit pRBC given 01/11 Near syncope with orthostatic hypotension. Have independently interviewed and examined pt. Chart reviewed. Cased discussed with my SURVEY QUESTIONNAIRE DESIGNER. Care plan developed with my supervision; agree with above. Rough morning-very dizzy and lightheaded. BP low. Pain about the same- comfortable at rest, but painful with movements-make activities very challenging. Still not had stool. Passing flatus. No nausea, but appetite decreased. Breathing well. No chest pain. Lungs:clear CV: regular AB: soft nt/nd +BS MSE: awake alert appropriate Plan: HOLD ARB do to low BP. Transfuse 1 unit pRBC and HBG without increase from yesterday and patient very unsteady when up (along with low BP). Will hold Eliquis due to need for blood transfusions (SCD to continue for DVT prevention) . Start routine Senna Plus BID to help stools, have MOM/Miralax/Dulcolax as needed. Continue with therapy. [facility] lab. Hospital Course Summary Disclaimer: The visit summary below is not to be considered part of the above Progress Note.
[2017-01-12] MEDS: SALINE FLUSH 10ml SYRINGE IVF PRN ×2 (13:02→20:21)
[2017-01-12] MEDS ORDERED: POLYETHYL GLYCOL 3350 17gm PACKET PO PRN (16:19)
[2017-01-12] MEDS ORDERED: BISACODYL 10 MG SUPPOSITORY RECTALLY PRN (16:19)
[2017-01-12] MEDS: SENNA + DOCUSATE TABLET PO SCH ×2 (17:38→20:15)
[2017-01-12] MEDS: SIMVASTATIN 40 MG TABLET PO SCH (20:15)
[2017-01-12] MEDS: HYDROCODONE/APAP 5mg/325mg TABLET PO PRN (20:15)
[2017-01-12 23:53] VITALS: RESP 16
[2017-01-13] MEDS: HYDROCODONE/APAP 5mg/325mg TABLET PO PRN ×3 (01:18→12:29)
[2017-01-13] MEDS: SALINE FLUSH 10ml SYRINGE IVF PRN (06:03)
[2017-01-13 07:55] VITALS: TEMP 97.7; O2SAT 97
[2017-01-13] MEDS: FAMOTIDINE 20 MG TABLET PO SCH (08:01)
[2017-01-13] MEDS: SENNA + DOCUSATE TABLET PO SCH (08:01)
[2017-01-13] MEDS: ASPIRIN *EC* 81 MG TABLET PO SCH (08:01)
--- NOTE | 2017-01-13 10:29 | Progress Note ---
Subjective: F/U: Right hip fracture Doing much better this morning compared to past 2 days. BP not decreased. Not as dizzy and weak with positional changes. Pain to right hip and leg controlled. Tolerating pain medications. Breathing well-no congestion, cough, SOA, or needing O2. Not having chest pressure or pain. Appetite increasing, but not to baseline. No ab pain or nausea. Stools not moved. Objective Vital signs: Temperature 97.7 F 01/13/17 07:55 Pulse Rate 95 01/13/17 08:14 Respiratory Rate 16 01/13/17 07:55 Blood Pressure 159/78 H 01/13/17 07:55 Pulse Oximetry 97 01/13/17 07:55 Oxygen Delivery Method Room Air Oxygen Flow Rate 1 Rhythm: Normal Sinus Rhythm Height/Weight/BMI: Height 1.61 m Weight 73 kg Body Mass Index 31.3 - Constitutional Present: no acute distress, well nourished, well developed, cooperative - Routine HEENT Exam Head: Present: normocephalic, atraumatic Eye: Present: EOMI, PERRL ENT: Present: mucous membranes moist - Routine Respiratory Exam Present: CTA bilaterally. Absent: respiratory distress, rhonchi, wheezes, crackles - Routine Cardiovascular Exam Present: RRR - Routine Abdominal Exam Present: soft, normoactive bowel sounds, non distended, non tender - Routine Extremities Exam Present: edema (Right thigh and LE ), pulses intact. Absent: cyanosis, clubbing - Routine Musculoskeletal Exam Musculoskeletal: Present: no clubbing or cyanosis, normal strength - Routine Skin Exam Present: intact, dry, warm - Routine Neurological Exam Present: alert, oriented X3, CN II-XII intact, vision grossly intact, hearing grossly intact. Absent: motor deficit - Routine Psychiatric Exam Present: normal affect, normal thought process, good insight, good judgment. Absent: anxious, agitated Results - Labs CBC & Chem 7: 01/13/17 03:50 01/13/17 03:50 Assessment and Plan (1) Trochanteric fracture of right femur Current visit: Yes Status: Acute DVT Prophylaxis: SCD's Resuscitation Status: Full Code Assessment and Plan: Impression Right 3 part intertrochanteric hip fracture S/P CM fixation of right intertrochanteric hip fracture. POD # 4 History of syncope, none for the past 1 year. Anticoagulation with Eliquis for syncope thought to be secondary to arrhythmia Hypertension Hyperlipidemia Hyponatremia (POA) Hypokalemia (POA) -resolved, magnesium is normal Leukocytosis without fever or symptoms of infection-resolved; stress reaction ABLA-monitor - Transfusion on 1 unit pRBC given 01/11 and 01/12 Episode of hypotension and bradycardia 01/08/2017 15 minutes post receiving Toprol Near syncope with orthostatic hypotension. Constipation secondary to pain medications. Plan: Hemoglobin improved post transfusion. BP stable. Will discharge to IRU for continuation of skilled care. Hold Eliquis due to recent blood loss anemia - restart in 4-7 day, depending on how HGB does. Continue with pain control. Continue bowel motivation. PT/OT to maximize functional status. Dr Bruce to follow for rehab needs and Hospitalists to follow for medical care. Definitive hospital follow up to be made at time of discharge from IRU. See orders for details. Time spent with patient care and discharge greater that 30 minutes. - Time spent with patient discharge greater than 30 minutes Sepsis Assessment - Evaluation Sepsis screening result: No Definite Risk Hospital Course Summary Disclaimer: The visit summary below is not to be considered part of the above Progress Note. Hospital Course: 01/08/17 hospitalist admission Assessment Right Intertrochanteric hip fracture-status post fall Skin tears and superficial abrasions right forearm and left elbow Hyponatremia (POA) Hypokalemia (POA) Hypertension Dyslipidemia Anticoagulation-started for syncopal episodes (questionable arrhythmia?) September 2015 Plan Admit to hospitalist team for inpatient hospital care with Dr. Falk consulting for surgery for right intertrochanteric hip fracture. Patient's Eliquis and aspirin will be put on hold given pending surgery. Dr. Isaac to reconcile home meds. Nurses to clean and dress skin tears/abrasions IV fluids for maintenance and to correct hyponatremia and hypokalemia. May consider holding hydrochlorothiazide. SCDs for DVT prophylaxis. Regular diet tonight. Nothing by mouth after midnight. CBC and BMP in a.m. prior to surgery Morphine IV, Tylenol and Wing by mouth when necessary for pain. Zofran for nausea. Pepcid for GI prophylaxis. Patient is hesitant to take PPIs and prefers Pepcid at home. Telemetry given history of syncopal episodes and possible cardiac arrhythmia Will further discuss plan of care with attending. Discussed patient's preference for CODE STATUS. Patient requests full resuscitation. This order is written. At time of patient's discharge, care will be returned to her PCP, Dr. Perez Bardales in [place] Called and notified approximately 30 minutes ago but the patient suddenly felt nauseated and became diaphoretic and pale with heart rate down into the 40s. Stat blood pressure was obtained and blood pressure was in the 60s systolic. She was then placed flat and oxygen was initiated. Repeat blood pressure was 87 systolic. I did order IV fluids normal saline wide open. The patient's nurse stated that approximately 15 minutes prior to this episode she received a Wing and her usual Toprol-XL 100 mg which she takes in the evening. Prior to this episode of hypotension and bradycardia the patient's heart rate had been in the 50s and systolic blood pressure had been in the 190s. EKG was obtained which revealed sinus bradycardia with a rate of 58 and nonspecific T-wave abnormality. CBC, basic metabolic, troponin, and type and cross were ordered stat. Plans were made for transfer to CCU and Dr. Rojas was consulted. Prior to transfer systolic blood pressure was suddenly up to 170. She was transferred to intensive care and systolic blood pressure is now 200. She states she is feeling better now. She denies any headache or chest pain. She denies any shortness of breath. O2 sat is normal on room air. She has received 300 cc normal saline bolus since this episode began and IV fluids have been stopped now that blood pressure is high. We'll continue to monitor here in CCU overnight. 01/09/17 Op Day Blood pressure is elevated this morning. We'll give her usual Cozaar dose. Per cardiology, from a cardiac standpoint, okay to proceed with surgery this afternoon. I agree that she seems appropriate for surgery later today. If she is stable perioperatively, she could likely return to the surgical floor post op. Recheck CBC and basic metabolic profile tomorrow. Hold hydrochlorothiazide due to hyponatremia Will notify Dr. Falk Procedure Operation: CM fix of intertrochanteric hip fx 01/09/17 Cardiology Hypotension, iatrogenic Since her HR and BP both dropped simultaneously - likely iatrogenic due to medications and vagal response due to pain. Recuperated. Now she is hypertensive. cont home BP meds. Hypertension Cont home meds: Toprol 100mg qhs and losartan in am. Hold HCTZ as she will be NPO for surgery. She has been taking these meds for yrs. Bradycardia Likely vagal response due to pain and iatrogenic due to meds. HR 49 to 50's last night - sleeping and receiving pain meds. Monitor telemetry. Hyperlipemia cont statin - managed by PCP 01/10/17 POD #[address] Rojas last night. We'll keep Toprol on hold due to hypotension and bradycardia the night of admission. Cozaar was increased from 25 mg a day to 50 mg a day and will need to continue to monitor blood pressure closely. Hydrochlorothiazide is on hold due to hyponatremia. DC IV fluids Recheck CBC and basic metabolic profile tomorrow. Family wishes for the patient to go to inpatient rehabilitation when stable for discharge. After that, plan is for the patient to move to [place] to live with one of her daughters. Discussed with nurse and case management. 01/10/17 Cardiology HTN: Start low dose BB: Metoprolol Tartrate 25mg PO BID. Continue to monitor V/S , cardiac telemetry 01/11/17 POD #2 Given continued decrease in Hgb down to 7.1 accompanied with her symptoms of lightheadedness with position changes. Will transfuse 1 unit of packed RBCs Asked nursing staff to hold Lopressor and Cozaar this morning. 01/11/17 Cardiology Increase Metoprolol to 50mg po BID 01/12/17 POD# 3 Significant, symptomatic orthostatic hypotension. Hold ARB. Hold metoprolol if standing BP less than 120. Treat standing BP. Continue telemetry- CV following. Given sx will give another unit of PRBC's this morning. HGB dropped a full gram since transfusion yesterday. Lasix/KCL x1 post blood. If anemia remains an issue, may need to hold Eliquis. Hyponatremia is stable. No fever or other acute s/sx of infection. She did feel that her left leg was a bit weaker earlier- that has resolved. If recurs, may need to consider CT of the head. Repeat labs in AM. 01/13/17 POD#4 Hemoglobin improved post transfusion. BP stable. Will discharge to IRU for continuation of skilled care. Hold Eliquis due to recent blood loss anemia - restart in 4-7 day, depending on how HGB does. Continue with pain control. Continue bowel motivation. PT/OT to maximize functional status. Dr Bruce to follow for rehab needs and Hospitalists to follow for medical care. Definitive hospital follow up to be made at time of discharge from IRU. See orders for details.
[2017-01-13] MEDS: ACETAMINOPHEN 500 MG TABLET PO PRN (10:39)
[2017-01-13] MEDS: BACITRACIN OINT 15 GM TOP PRN (10:39)
--- NOTE | 2017-01-13 10:57 | Discharge Summary ---
Discharge Information Date of admission: 01/08/17 18:38 Anticipated date of discharge: 01/13/17 Attending Physician: Shelby Isaac MD Primary care physician: Dr Bardales Consults: Physician Consult: John Falk Reason For Exam: R hip fx Physician Consult: Candido Rojas Reason For Exam: hypotension and bradycardia PT/OT IRU Screening - Discharge Diagnosis Discharge Diagnosis: Right 3 part intertrochanteric hip fracture S/P CM fixation of right intertrochanteric hip fracture. Associated conditions and complications History of syncope, none for the past 1 year. Anticoagulation with Eliquis for syncope thought to be secondary to arrhythmia Hypertension Hyperlipidemia Hyponatremia (POA) Hypokalemia (POA) -resolved, magnesium is normal Leukocytosis without fever or symptoms of infection-resolved; stress reaction ABLA-monitor - Transfusion on 1 unit pRBC given 01/11 and 01/12 Episode of hypotension and bradycardia 01/08/2017 15 minutes post receiving Toprol Near syncope with orthostatic hypotension. Constipation secondary to pain medications. - Procedures Procedures: 01/09/17: Operation: CM fix of intertrochanteric hip fx Preoperative Diagnosis: 3-part introchanteric hip Postoperative Diagnosis: Same as preoperative diagnosis. Side: right Surgeon: Christa Falk MD Date of Exam: 01/09/17 Type of Exam(s): US echo doppler complete 01/09/17: US echo doppler complete Left atrial dimension is normal. Left ventricle end-diastolic dimension is normal. Left ventricle wall thickness is at the upper limits of normal. LV systolic function is normal with ejection fraction of 65%. Right atrium is normal. Right ventricle is normal. Aortic root dimension is normal. Mitral valve annulus is calcified. Mitral valve leaflets are normal with moderate mitral regurgitation. Aortic valve is a trileaflet structure with no stenosis. Moderate aortic insufficiency is present. Tricuspid valve shows mild tricuspid regurgitation with mild pulmonary hypertension with estimated pulmonary artery systolic pressure of 41. Pulmonary valve shows mild pulmonary insufficiency. There is no pericardial effusion. IMPRESSION 1. Normal LV systolic function with ejection fraction of 65%. 2. Mitral annulus calcification with moderate mitral regurgitation. 3. Moderate aortic insufficiency. 4. Mild tricuspid regurgitation with mild pulmonary hypertension with estimated pulmonary artery systolic pressure of 41. 5. Mild pulmonary insufficiency. 01/11/17: Transfusion of 1 unit pRBC 01/12/17: Transfusion of 1 unit pRBC - Laboratory Labs: Admission Laboratory 01/08/17 17:48 WBC 16.3 H Hgb 12.4 Hct 37.1 MCV 86.9 MCH 29.0 Plt Count 280 Admission Laboratory 01/08/17 17:48 Sodium 133 L Potassium 3.3 L Chloride 96 L Carbon Dioxide 25 Anion Gap 12 BUN 12.0 Creatinine 0.7 GFR Calculation 81 Glucose 109 Calculated Osmolality 257 L 01/13/17 03:50 01/13/17 03:50 History of Present Illness HPI: Patient is a pleasant 81-year-old female from [place], [place]. She was in her yard watering plants this afternoon and reports she got tangled up in the hose and fell onto her right hip. She does not feel that she lost consciousness. She thinks she was down for at least 15 minutes before one of her neighbors heard her yelling for help. EMS was called and she was brought to our emergency department and found to have a right intertrochanteric hip fracture. In the ER she had workup including CBC with white blood cell count of 16.3, remainder essentially normal. Her CMP revealed sodium low at 133 and potassium low at 3.3. Her EKG showed bradycardia with a first-degree AV block. Her chest x-ray shows no acute abnormalities. Dr. Falk was consulted and agreed to proceed with surgery in the morning, with the hospitalist team admitting patient this evening. Patient was seen while still in the ER. She states pain is 5/10. Her last pain medication had been given en route to the ED by EMS. She reports she has been feeling well. She lives at home independently with her . Her most recent visit to her doctor was several months ago for complaints of belching/gas. She reports her previous PCP, Dr. Gipson, has left so she is seeing Dr. Bardales in [place]. She states he wanted to put her on Prilosec, but she decided to take Pepcid instead. She states this controls her symptoms. She also reports being put on Eliquis in September 2015 following at least 1 or 2 syncopal episodes with an unknown cause. She was seen by a roll carrier in [place] who had performed, what sounds like a heart cath, and she also had a 30 day heart monitor. She states they never fully found a cause for her syncopal episodes, but there was suspicion of an arrhythmia and that is why they started her on Eliquis. She has not had any syncopal episodes since she has been on Eliquis. For complete details of the H&P refer to that document. Objective Vital signs: Temperature 97.7 F 01/13/17 07:55 Pulse Rate 95 01/13/17 08:14 Respiratory Rate 16 01/13/17 07:55 Blood Pressure 159/78 H 01/13/17 07:55 Pulse Oximetry 97 01/13/17 07:55 Oxygen Delivery Method Room Air Oxygen Flow Rate 1 Rhythm: Normal Sinus Rhythm Height/Weight/BMI: Height 1.61 m Weight 73 kg Body Mass Index 31.3 Hospital Course This is a general summary of the patient's hospital course. For more details refer to the complete medical record. Hospital course: 01/08/17 hospitalist admission Assessment Right Intertrochanteric hip fracture-status post fall Skin tears and superficial abrasions right forearm and left elbow Hyponatremia (POA) Hypokalemia (POA) Hypertension Dyslipidemia Anticoagulation-started for syncopal episodes (questionable arrhythmia?) September 2015 Plan Admit to hospitalist team for inpatient hospital care with Dr. Falk consulting for surgery for right intertrochanteric hip fracture. Patient's Eliquis and aspirin will be put on hold given pending surgery. Dr. Isaac to reconcile home meds. Nurses to clean and dress skin tears/abrasions IV fluids for maintenance and to correct hyponatremia and hypokalemia. May consider holding hydrochlorothiazide. SCDs for DVT prophylaxis. Regular diet tonight. Nothing by mouth after midnight. CBC and BMP in a.m. prior to surgery Morphine IV, Tylenol and Wilton by mouth when necessary for pain. Zofran for nausea. Pepcid for GI prophylaxis. Patient is hesitant to take PPIs and prefers Pepcid at home. Telemetry given history of syncopal episodes and possible cardiac arrhythmia Will further discuss plan of care with attending. Discussed patient's preference for CODE STATUS. Patient requests full resuscitation. This order is written. At time of patient's discharge, care will be returned to her PCP, Dr. Perez Bardales in [place] Called and notified approximately 30 minutes ago but the patient suddenly felt nauseated and became diaphoretic and pale with heart rate down into the 40s. Stat blood pressure was obtained and blood pressure was in the 60s systolic. She was then placed flat and oxygen was initiated. Repeat blood pressure was 87 systolic. I did order IV fluids normal saline wide open. The patient's nurse stated that approximately 15 minutes prior to this episode she received a Wilton and her usual Toprol-XL 100 mg which she takes in the evening. Prior to this episode of hypotension and bradycardia the patient's heart rate had been in the 50s and systolic blood pressure had been in the 190s. EKG was obtained which revealed sinus bradycardia with a rate of 58 and nonspecific T-wave abnormality. CBC, basic metabolic, troponin, and type and cross were ordered stat. Plans were made for transfer to CCU and Dr. Rojas was consulted. Prior to transfer systolic blood pressure was suddenly up to 170. She was transferred to intensive care and systolic blood pressure is now 200. She states she is feeling better now. She denies any headache or chest pain. She denies any shortness of breath. O2 sat is normal on room air. She has received 300 cc normal saline bolus since this episode began and IV fluids have been stopped now that blood pressure is high. We'll continue to monitor here in CCU overnight. 01/09/17 Op Day Blood pressure is elevated this morning. We'll give her usual Cozaar dose. Per cardiology, from a cardiac standpoint, okay to proceed with surgery this afternoon. I agree that she seems appropriate for surgery later today. If she is stable perioperatively, she could likely return to the surgical floor post op. Recheck CBC and basic metabolic profile tomorrow. Hold hydrochlorothiazide due to hyponatremia Will notify Dr. Falk Procedure Operation: CM fix of intertrochanteric hip fx 01/09/17 Cardiology Hypotension, iatrogenic Since her HR and BP both dropped simultaneously - likely iatrogenic due to medications and vagal response due to pain. Recuperated. Now she is hypertensive. cont home BP meds. Hypertension Cont home meds: Toprol 100mg qhs and losartan in am. Hold HCTZ as she will be NPO for surgery. She has been taking these meds for yrs. Bradycardia Likely vagal response due to pain and iatrogenic due to meds. HR 49 to 50's last night - sleeping and receiving pain meds. Monitor telemetry. Hyperlipemia cont statin - managed by PCP 01/10/17 POD #[address] Rojas last night. We'll keep Toprol on hold due to hypotension and bradycardia the night of admission. Cozaar was increased from 25 mg a day to 50 mg a day and will need to continue to monitor blood pressure closely. Hydrochlorothiazide is on hold due to hyponatremia. DC IV fluids Recheck CBC and basic metabolic profile tomorrow. Family wishes for the patient to go to inpatient rehabilitation when stable for discharge. After that, plan is for the patient to move to [place] to live with one of her daughters. Discussed with nurse and case management. 01/10/17 Cardiology HTN: Start low dose BB: Metoprolol Tartrate 25mg PO BID. Continue to monitor V/S , cardiac telemetry 01/11/17 POD #2 Given continued decrease in Hgb down to 7.1 accompanied with her symptoms of lightheadedness with position changes. Will transfuse 1 unit of packed RBCs Asked nursing staff to hold Lopressor and Cozaar this morning. 01/11/17 Cardiology Increase Metoprolol to 50mg po BID 01/12/17 POD# 3 Significant, symptomatic orthostatic hypotension. Hold ARB. Hold metoprolol if standing BP less than 120. Treat standing BP. Continue telemetry- CV following. Given sx will give another unit of PRBC's this morning. HGB dropped a full gram since transfusion yesterday. Lasix/KCL x1 post blood. If anemia remains an issue, may need to hold Eliquis. Hyponatremia is stable. No fever or other acute s/sx of infection. She did feel that her left leg was a bit weaker earlier- that has resolved. If recurs, may need to consider CT of the head. Repeat labs in AM. 01/13/17 POD#4 Hemoglobin improved post transfusion. BP stable. Will discharge to IRU for continuation of skilled care. Hold Eliquis due to recent blood loss anemia - restart in 4-7 day, depending on how HGB does. Continue with pain control. Continue bowel motivation. PT/OT to maximize functional status. Dr Bruce to follow for rehab needs and Hospitalists to follow for medical care. Definitive hospital follow up to be made at time of discharge from IRU. See orders for details. Time spent with patient: discharge greater than 30 minutes DVT Prophylaxis: SCD's, Eliquis Discharge Plan - Med Rec/Dispo Referrals/Follow Up: Perez Bardales DO [Physician] - (September/ post discharge from IRU.) Prescriptions: New Bisacodyl Supp [Dulcolax] 10 mg RECTALLY DAILY PRN supp PRN Reason: Constipation Hydrocodone/APAP 5/325 [Wilton 5/325] 1 - 2 tab PO Q4H PRN tablet PRN Reason: Pain Metoprolol Succinate (Xl) [Toprol Xl] 50 mg PO 1730 tablet Milk of Magnesia [Mom] 30 ml PO DAILY PRN udc PRN Reason: Constipation Senna + Docusate [Senna Plus Tablet] 1 tab PO BID tablet Acetaminophen [Tylenol] 500 mg PO Q5H PRN tablet PRN Reason: Discomfort Bacitracin Oint 1 applic TOP PRN PRN tube PRN Reason: TO ABRASIONS ON ARMS Famotidine [Pepcid] 20 mg PO BID tablet Continue Losartan [Cozaar] 25 mg PO DAILY Aspirin [Ecotrin] 81 mg PO DAILY Simvastatin [Zocor] 40 mg PO DAILY Apixaban [Eliquis] 5 mg PO BID Discontinued hydroCHLOROthiazide [Hydrochlorothiazide] 25 mg PO DAILY #0 Potassium 99 mg PO DAILY Metoprolol Succinate 100 mg PO DAILY Discharge Instructions/Outpatient Orders: Final Provider Discharge Instructions Location: Determined By Patient - Disposition 62 To [facility] Re[facility] - Attestation Attestation Narrative: 01/13/17 11:13 I have independently interviewed and examined patient prior to discharge. See my progress note for details. Medically stable for discharge to IRU.
[2017-01-13 11:40] VITALS: BP 150/68
[2017-01-13 12:47] VITALS: PULSE 87
== END 2017-01-13 13:38 | DRG 481 ==
LOC: ED 17:01 → SRG 18:38 → CCU 21:10 → SRG 01-09 21:15
PROVIDERS: ADMIT Internal Medicine; ATTEND Internal Medicine

== ENCOUNTER 2017-01-13 13:57 | Inpatient (IN) ==
--- OUTSIDE RECORDS SUMMARY | 2017-01-13 14:05 | External Medical Summary | CCD ---
:1935 Author Name MICHAELLE ROSE Address [address] [place] [phone] Care Team Providers Name Role Phone ERIC ADAMSON Attending Physician Unavailable Vital Signs Unknown or Not Available. Allergies Unknown or Not Available. Procedures Unknown or Not Available. History of Immunizations Unknown or Not Available. Problems Unknown or Not Available. Results PTH, INTACT - Collect Date/Time: 07/01/2015 12:13 Test Name Code Test Result Test Units Test Ref Range PTH, Intact 2731-8 39 pg/mL 15-65 Active Medications Unknown or Not Available. Medications Administered During Visit Unknown or Not Available. Encounters Encounter Diagnosis Diagnosis Code Start Date Hyperparathyroidism, E213 07/01/2015 unspecified Social History Smoking Status Code Start Date End Date Never smoker [id number] Patient Decision Aids Unknown or Not Available. Discharge Instructions You were admitted to [facility] on 04/2016 with a principal diagnosis of Hyperparathyroidism, unspecified. You had the following tests done: PTH, Intact You were discharged from [facility] on 07/01/2015. Should you have any questions prior to discharge, please contact a member of your healthcare team. If you have left the hospital and have any questions, please contact your primary care physician. Chief Complaint and Reason For Visit Unknown or Not Available. Function Status Unknown or Not Available. Plan of Care Unknown or Not Available. Referral/Transition of Care Unknown or Not Available.
--- OUTSIDE RECORDS SUMMARY | 2017-01-13 14:05 | External Medical Summary | CCD ---
:1935 Author Name MICHAELLE ROSE Address [address] [place] [phone] Care Team Providers Name Role Phone ERIC ADAMSON Attending Physician Unavailable Vital Signs Unknown or Not Available. Allergies Unknown or Not Available. Procedures Unknown or Not Available. History of Immunizations Unknown or Not Available. Problems Unknown or Not Available. Results COMP METABOLIC - Collect Date/Time: 06/16/2015 15:55 Test Name Code Test Result Test Units Test Ref Range GLUCOSE 103 mg/dL L=70 H=110 BUN 10 mg/dL L=7 H=18 CREATININE 1.00 mg/dL L=0.60 H=1.30 AGE 79 YEARS GFR 57.0 SODIUM 135 mmol/L L=136 H=145 POTASSIUM 3.4 mmol/L L=3.5 H=5.1 CHLORIDE 97 mmol/L L=98 H=107 CO2 31 mmol/L L=21 H=32 CALCIUM 9.3 mg/dL L=8.5 H=10.1 AST 17 U/L L=15 H=37 ALT 20 U/L L=12 H=78 ALKALINE PHOS 70 U/L L=50 H=136 TOTAL PROTEIN 7.6 g/dL L=6.4 H=8.2 ALBUMIN 3.9 g/dL L=3.4 H=5.0 TOTAL BILI 0.30 mg/dL L=0.00 H=1.00 LIPID PANEL - Collect Date/Time: 06/16/2015 15:55 Test Name Code Test Result Test Units Test Ref Range CHOLESTEROL 185 mg/dL L=0 H=200 TRIGLYCERIDES 161 mg/dL L=30 H=150 HDL 74 mg/dL L=50 H=60 LDL, CALC 79 mg/dL L=0 H=100 VLDL 32 mg/dL L=0 H=40 CHOL/HDL RISK 2.5 RATIO L=0.0 H=4.4 PT FASTING: ? N/A Active Medications Unknown or Not Available. Medications Administered During Visit Unknown or Not Available. Encounters Encounter Diagnosis Diagnosis Code Start Date Essential (primary) hypertension I10 06/16/2015 Social History Smoking Status Code Start Date End Date Never smoker [id number] Patient Decision Aids Unknown or Not Available. Discharge Instructions You were admitted to [facility] on with a principal diagnosis of Essential (primary) hypertension. You were discharged from [facility] on 06/16/2015. Should you have any questions prior to [...]
[2017-01-13] MEDS ORDERED: ACETAMINOPHEN 500 MG TABLET PO PRN (14:35)
[2017-01-13] MEDS ORDERED: BACITRACIN OINT 15 GM TOP PRN (14:35)
[2017-01-13] MEDS ORDERED: BISACODYL 10 MG SUPPOSITORY RECTALLY PRN (14:35)
[2017-01-13 14:39] VITALS: BMI 28.5
[2017-01-13] MEDS: HYDROCODONE/APAP 5mg/325mg TABLET PO PRN (17:48)
[2017-01-13] MEDS: SIMVASTATIN 40 MG TABLET PO SCH (20:30)
[2017-01-13] MEDS: SENNA + DOCUSATE TABLET PO SCH (20:30)
[2017-01-13] MEDS: FAMOTIDINE 20 MG TABLET PO SCH (20:30)
[2017-01-13] MEDS ORDERED: APIXABAN 5 MG TABLET PO SCH (21:00)
[2017-01-14] MEDS: ASPIRIN *EC* 81 MG TABLET PO SCH (08:30)
[2017-01-14] MEDS: SENNA + DOCUSATE TABLET PO SCH ×2 (08:30→20:35)
[2017-01-14] MEDS: HYDROCODONE/APAP 5mg/325mg TABLET PO PRN ×4 (08:30→21:05)
[2017-01-14] MEDS: FAMOTIDINE 20 MG TABLET PO SCH ×2 (08:30→20:35)
[2017-01-14] MEDS ORDERED: LOSARTAN 50 MG TABLET PO SCH (09:00)
--- NOTE | 2017-01-14 10:21 | IRU History & Physical Report ---
[facility] Date: Chief complaint: hip pain, BP HPI: Ms. Cleveland is an 81-year-old white female interviewed in her room in the acute rehabilitation unit. She had fallen at home after having become entangled in her garden hose while she was watering her garden or yard. She was brought to the emergency department. She lives in [place], [place] and her physician is Dr. Bardales. She was noted to have an intertrochanteric fracture of the right hip. She underwent a surgical repair of the hip on 01/09/[address] Falk. She was noted to have hypertension in the postoperative timeframe. She was given Toprol. Blood pressure and pulse did drop. Had a bradycardic episode. For this reason she has been followed by cardiology as well as the hospitalists. Echocardiogram was obtained and revealed normal ejection fraction. Has modest pulmonary hypertension at around 41 mmHg at rest. At home she does live with her . She does not have any stairs that she needs to climb. Does not use any assistive device at home. It is noted that she did have an episode of syncope in September 2015. This was evaluated with a 30 day heart monitor which apparently showed nothing abnormal. She was then seen in [place] and underwent a cardiac catheterization by her description. Nothing much was found. Apparently they suspected an arrhythmia as the cause of her syncope and she was placed on Eliquis. When I mentioned to her whether she might have atrial fibrillation she did not recall that term. However apparently she has been on Eliquis for the last year and tolerated it well. Has had no further episodes of syncope. She denies any chest pains. Denies shortness of breath. The following medical conditions are noted and require physician monitoring and treatment. 1. Hypertension and orthostatic hypotension: She will be monitored carefully in this regard. 2. Bradycardia: Patient will be monitored in this regard as well. 3. Hyponatremia: Sodiums have been around 131. She was on a diuretic at home which is currently being held. It is trending upward with previous values being in the 129 range. 4. Leukocytosis: White count was 16,000 on admission. It has since returned to normal and likely that was a stress reaction but this will need to be monitored as well. No current evidence of infection. 5. Acute blood loss anemia: Lowest hemoglobin recorded was 7.1. Did require transfusion of packed red blood cells. No further evidence of acute blood loss and most recent hemoglobin is around 8 g percent. 6. Constipation: Likely secondary to pain medications 7. Anorexia: Uncertain etiology but of new onset. The following therapies will be needed: 1. Physical therapy: for transfers and ambulation and stairs. 2. Occupational therapy: for ADL's and transfers. 3. Dietitian: To maintain adequate nutrition for therapies and to return home. 4. Medical management: for the above conditions. 5. 24 hour Rehabilitation Nursing to monitor and address the following: Careful monitoring of blood pressure and pulse. Review of Systems - Constitutional Constitutional: Present: anorexia, fatigue - EENMT Eyes: Absent: blurry vision, change in vision, diplopia Ears: Absent: ear discharge Balance: Absent: vertigo Nose: Absent: change in smell, pain Mouth/Throat: Absent: pain, sore throat - Cardiovascular Cardiovascular: Absent: chest pain, palpitations, syncope, dyspnea on exertion Rhythm: Present: regular rhythm Vascular: Absent: intermittent claudication - Respiratory Respiratory: Absent: cough, dyspnea, dyspnea on exertion - Gastrointestinal Gastrointestinal: Present: change in bowel habits, constipation. Absent: abdominal pain - Musculoskeletal Musculoskeletal: Absent: back pain - Neurological Neurological: Absent: abnormal gait [facility] Patient Stated Medical History Syncope Yes: IN PAST Cardiac Arrhythmia Yes Heart Murmur Yes Hypertension Yes Hx Incontinence No Post Menopausal Yes Surgical History: Thyroidectomy. Hysterectomy-had appendix removed at the same time. Right hip fracture repair. B S&O with hysterectomy Family History: Father in his later years from an infection after a fall. Mother at age 92 apparently from old age. - Social History Smoking status: Never smoker Substance use type: does not use Alcohol intake: current Alcohol intake frequency: a few times a week (once weekly approximately.) Housing: house Household members: spouse Current occupational status: retired Current residence: Apartment/Private Home Medications Home Medications Medication Instructions Recorded Confirmed Type Apixaban [Eliquis] 5 mg PO BID 01/08/17 01/13/17 History Aspirin [Ecotrin] 81 mg PO DAILY 01/08/17 01/13/17 History Losartan [Cozaar] 50 mg PO DAILY 01/08/17 01/13/17 History Simvastatin [Zocor] 40 mg PO HS 01/08/17 01/13/17 History Allergies Allergy/AdvReac Type Severity Reaction Status Date / Time ciprofloxacin Allergy Intermediate FLUSHING Verified 01/13/17 14:05 erythromycin base Allergy Intermediate FLUSHING Verified 01/13/17 14:05 nitrofurantoin Allergy Intermediate TACHYCARDIA Verified 01/13/17 14:05 Penicillins Allergy Intermediate RASH ; SOA Verified 01/13/17 14:05 Sulfa (Sulfonamide Allergy Intermediate Rash; SOA Verified 01/13/17 14:05 Antibiotics) Cephalexin Monohydrate Allergy Intermediate ITCHING Uncoded 08/01/09 12:18 ciprofloxacin HCl Allergy Intermediate FLUSHING Uncoded 08/01/09 12:18 Nitrofurantoin Macrocrystal Allergy Intermediate TACHYCARDIA Uncoded 08/01/09 12 :18 FOOD COLOR AdvReac Uncoded 01/08/17 21:07 Exam Vital Signs: Temperature 98.7 F 01/14/17 08:00 Pulse Rate 87 01/14/17 08:00 Respiratory Rate 17 01/14/17 08:00 Blood Pressure 163/78 H 01/14/17 08:00 Pulse Oximetry 93 01/14/17 08:00 Oxygen Delivery Method Room Air Telemetry Rhythm: Sinus Rhythm Height/Weight/BMI: Height 1.61 m Weight 74.3 kg Body Mass Index 28.5 - Constitutional Present: moderate distress (from right hip pain) - Routine HEENT Exam Head: Present: normocephalic, atraumatic. Absent: cushingoid faces Eye: Present: EOMI, PERRL, normal accommodation. Absent: conjunctival icterus, scleral injection ENT: Present: mucous membranes moist - Routine Chest/Breast/Axilla Exam Chest wall: Absent: tenderness - Routine Respiratory Exam Present: CTA bilaterally. Absent: accessory muscle use, dyspnea, decreased breath sounds, respiratory distress - Routine Cardiovascular Exam Present: RRR, S1, S2, no murmur. Absent: S3, S4 - Routine Abdominal Exam Present: soft, normoactive bowel sounds, non distended, non tender. Absent: tenderness, distended, mass - Routine Extremities Exam Present: edema (1+ edema right lower extremity.). Absent: cyanosis, clubbing - Routine Skin Exam Present: intact, dry. Absent: erythema - Routine Neurological Exam Present: alert, oriented X3, CN II-XII intact. Absent: motor deficit - Routine Psychiatric Exam Present: normal affect, normal thought process, cooperative, good insight, good judgment Sepsis Assessment - Evaluation Sepsis screening result: No Definite Risk IRU A/P (1) Closed intertrochanteric fracture of right femur Qualifiers: Encounter type: initial encounter Fracture alignment: displaced Qualified Code(s): S72.141A - Displaced intertrochanteric fracture of right femur, initial encounter for closed fracture Current visit: No Status: Acute Patient is experiencing pain in regard to the hip fracture and repair. Will require intensive physical therapy and occupational therapy for improvement and in pain management. (2) Hypertension Qualifiers: Hypertension type: essential hypertension Qualified Code(s): I10 - Essential (primary) hypertension Current visit: No Status: Chronic Per hospitalists. (3) Bradycardia Current visit: No Status: Acute Has recent history of bradycardia, possibly related to either vagal response or medication. We'll need to monitor this carefully for recurrence. (4) Acute blood loss as cause of postoperative anemia Current visit: Yes Status: Acute Required transfusion in the postoperative timeframe. Continue to monitor. (5) Hyponatremia Current visit: Yes Status: Acute (6) Slow transit constipation Current visit: Yes Status: Acute Constipation is relatively new problem probably related to pain medications. DVT Prophylaxis: SCD's, Eliquis Resuscitation Status: Full Code - Course Hospital Course: Michael Bruce MD: - Interventions to Obtain Goals PT Treatment Plan: Balance/Proprioception, Functional Activities, Gait Training , Patient/Family Education, Therapeutic Exercise OT Treatment Plan: ADL (Basic Care), Pt./Family Education
--- NOTE | 2017-01-14 10:42 | IRU 24Hr Post Admit Eval ---
24 Hr Post Admission Physical - Relevant Changes Relevant Changes: No Reviewed: I have reviewed the patient's information and concur with the finding and results of the pre-admission screen. Certification: I certify the patient for rehabilitation. - Patient Condition (1) Closed intertrochanteric fracture of right femur Status: Acute Qualifiers: Encounter type: initial encounter Fracture alignment: displaced Qualified Code(s): S72.141A - Displaced intertrochanteric fracture of right femur, initial encounter for closed fracture Code(s): S72.141A - Displaced intertrochanteric fracture of right femur, initial encounter for closed fracture Classification: Present on IRF Admission, IRF Tx That Should Address Diagnosis, Diagnosis Requiring Medical Follow Up (2) Hypertension Status: Chronic Qualifiers: Hypertension type: essential hypertension Qualified Code(s): I10 - Essential (primary) hypertension Code(s): I10 - Essential (primary) hypertension Classification: Present on IRF Admission, Diagnosis Requiring Medical Follow Up (3) Bradycardia Status: Acute Code(s): R00.1 - Bradycardia, unspecified Classification: Diagnosis Requiring Medical Follow Up (4) Acute blood loss as cause of postoperative anemia Status: Acute Code(s): D62 - Acute posthemorrhagic anemia Classification: IRF Tx That Should Address Diagnosis, Diagnosis Requiring Medical Follow Up (5) Hyponatremia Status: Acute Code(s): E87.1 - Hypo-osmolality and hyponatremia Classification: Present on IRF Admission, IRF Tx That Should Address Diagnosis, Diagnosis Requiring Medical Follow Up (6) Slow transit constipation Status: Acute Code(s): K59.01 - Slow transit constipation Classification: Present on IRF Admission, IRF Tx That Should Address Diagnosis, Diagnosis Requiring Medical Follow Up - Prior Functional Status Lives With: Spouse Residence Type: Apartment/Private Home Assitive Devices: None Prior Functional Status: Indep. at home or school - Current Functional Status Failed Alternative Therapy: Arrived from Acute Care Patient Requirements: The patient requires oversight by rehabilitation physician to manage their rehabilitation treatment plan and multidisciplinary approach to care that can only be provided in an IRF and requires a multidisciplinary approach to care, provided by professional PTs, OTs, STs, dieticians, RTs, rehabilitation nurses and is not available in lesser levels of care. Limitiations Req: Mobility Impairment, ADL Impairment Physical Therapy Minutes: 90 Occupational Therapy Minutes: 90 Therapy: The patient is to receive therapy at least 5 days a week. ROM Deficit: Right Lower Extremity - Complications/Comorbidities Barriers to Discharge: Weakness, Endurance, Pain Control - Plan to Avoid Complications Plan to Avoid Complications: The patient cannot receive this care in a lesser intensive setting such as Half-Way or Outpatient Therapy due to the patient requiring the following : Monitoring both hypertension and orthostatic hypotension, bradycardia, acute blood loss anemia monitoring and hyponatremia..
--- NOTE | 2017-01-14 17:07 | Consult Note ---
<Nicole Mabry - Last Filed: 01/14/17 17:15> Consult Information - Data of Consult Patient: known to practice within the last 3 years Consult date: 01/14/17 Requesting Physician: Michael Bruce MD Primary Care Provider: Dr. Perez Bardales - Consult Narrative Reason for consult: medical management of ongoing chronic problems History of present illness: Patient is an 81 y.o. female who presented to the ED on 01/08/17 after a fall onto her right hip. She was found to have a right intertrochanteric hip fracture. The night of admission she had an episode of symptomatic bradycardia with HR in the 40's and BP in the 60's. She was given fluid bolus and transferred to CCU and cardiology was consulted. Ultimately, her symptoms were diagnosed as iatrogenic due to medications and vagal response to pain. She had her right hip repair performed 01/09/17. She developed acute blood loss anemia following surgery and had 2 units of PRBC's transfused on 01/11 and 01/12. Her hemoglobin is stable at this point but Eliquis remains on hold to monitor her hemoglobin for continued trends. [facility] Past medical history Right Intertrochanteric hip fracture-s/p CM fixation by Dr. Falk on 01/09/17 ABLA- Transfusion on 1 unit pRBC given 01/11 and 01/12 Episode of hypotension and bradycardia 01/08/2017 15 minutes post receiving Toprol Anticoagulation with Eliquis for syncope thought to be secondary to arrhythmia ( currently on hold) Hypertension Hyperlipidemia Hyponatremia Near syncope with orthostatic hypotension. History of syncope, none for the past 1 year. Constipation secondary to pain medications. Hypocalcemia Bradycardia with first-degree AV block Surgical History: Thyroidectomy. Hysterectomy and BSO and appendectomy-1983. Right hip fracture repair Family History: Father of old age Mother at 92 of a stroke 2 sons and a daughter have hypertension - Social History Smoking status: Never smoker Substance use type: does not use Alcohol intake frequency: other (once a week- mixed drink) Housing: house Household members: spouse Current occupational status: retired Current residence: Apartment/Private Home Social history: PCP-Perez Bardales Review of Systems Comprehensive ROS: completed and no additional positive findings except those as stated - Musculoskeletal Musculoskeletal: Present: other (right hip pain) - Integumentary/Breasts Integumentary: Present: swelling (right leg) Medications Home Medications Medication Instructions Recorded Confirmed Type Apixaban [Eliquis] 5 mg PO BID 01/08/17 01/13/17 History Aspirin [Ecotrin] 81 mg PO DAILY 01/08/17 01/13/17 History Losartan [Cozaar] 50 mg PO DAILY 01/08/17 01/13/17 History Simvastatin [Zocor] 40 mg PO HS 01/08/17 01/13/17 History Allergies Allergy/AdvReac Type Severity Reaction Status Date / Time ciprofloxacin Allergy Intermediate FLUSHING Verified 01/13/17 14:05 erythromycin base Allergy Intermediate FLUSHING Verified 01/13/17 14:05 nitrofurantoin Allergy Intermediate TACHYCARDIA Verified 01/13/17 14:05 Penicillins Allergy Intermediate RASH ; SOA Verified 01/13/17 14:05 Sulfa (Sulfonamide Allergy Intermediate Rash; SOA Verified 01/13/17 14:05 Antibiotics) Cephalexin Monohydrate Allergy Intermediate ITCHING Uncoded 08/01/09 12:18 ciprofloxacin HCl Allergy Intermediate FLUSHING Uncoded 08/01/09 12:18 Nitrofurantoin Macrocrystal Allergy Intermediate TACHYCARDIA Uncoded 08/01/09 12 :18 FOOD COLOR AdvReac Uncoded 01/08/17 21:07 Exam Vital Signs: Temperature 97.6 F 01/14/17 16:00 Pulse Rate 91 01/14/17 16:00 Respiratory Rate 15 01/14/17 16:00 Blood Pressure 139/67 01/14/17 16:00 Pulse Oximetry 98 01/14/17 16:00 Oxygen Delivery Method Room Air Height/Weight/BMI: Height 1.61 m Weight 74.3 kg Body Mass Index 28.5 - Constitutional Present: no acute distress, well nourished, well developed - Routine HEENT Exam Head: Present: normocephalic, atraumatic Eye: Present: EOMI ENT: Present: mucous membranes moist, dentition normal - Routine Neck Exam Present: supple, full ROM - Routine Respiratory Exam Present: CTA bilaterally. Absent: wheezes - Routine Cardiovascular Exam Present: RRR, S1, S2, murmur - Routine Abdominal Exam Present: soft, normoactive bowel sounds, non distended. Absent: tenderness - Routine Extremities Exam Present: edema (2+ edema right lower extremity no edema to the left lower extremity), normal capillary refill - Routine Skin Exam Present: dry, warm - Routine Neurological Exam Present: alert, oriented X3 - Routine Psychiatric Exam Present: normal affect, normal thought process Results - Labs CBC & Chem 7: 01/14/17 04:29 01/14/17 04:29 Assessment and Plan (1) Closed intertrochanteric fracture of right femur Current visit: Yes Status: Acute (2) Acute blood loss as cause of postoperative anemia Current visit: Yes Status: Acute (3) Hyperlipemia Current visit: No Status: Acute (4) Hyponatremia Current visit: Yes Status: Acute Assessment and Plan: ASSESSMENT: Right Intertrochanteric hip fracture-s/p CM fixation by Dr. Falk on 01/09/17 ABLA- Transfusion on 1 unit pRBC given 01/11 and 01/12 Episode of hypotension and bradycardia 01/08/2017 15 minutes post receiving Toprol Anticoagulation with Eliquis for syncope thought to be secondary to arrhythmia ( currently on hold) Hypertension Hyperlipidemia Hyponatremia Near syncope with orthostatic hypotension. History of syncope, none for the past 1 year. Constipation secondary to pain medications. Hypocalcemia Bradycardia with first-degree AV block PLAN: Medically stable for participation in IRU. Follow sodium levels. No intervention at this point. Continue bowel motivation. Pain control per Dr. Bruce. PT/OT to maximize functional status. Continue to hold Eliquis given recent transfusion and ABLA. Will follow hemoglobin. At time of discharge, care will be returned to patient's PCP, Dr. Bardales. We will follow patient throughout her stay in IRU. Thank you for the consult. Hospital Course Summary Disclaimer: The visit summary below is not to be considered part of the above Progress Note. Hospital Course: Assessment Right Intertrochanteric hip fracture-s/p CM fixation by Dr. Falk on 01/09/17 ABLA- Transfusion on 1 unit pRBC given 01/11 and 01/12 Episode of hypotension and bradycardia 01/08/2017 15 minutes post receiving Toprol Anticoagulation with Eliquis for syncope thought to be secondary to arrhythmia ( currently on hold) Hypertension Hyperlipidemia Hyponatremia Near syncope with orthostatic hypotension. History of syncope, none for the past 1 year. Constipation secondary to pain medications. Hypocalcemia Bradycardia with first-degree AV block 01/14/17 Medically stable for participation in IRU. Follow sodium levels. No intervention at this point. Continue bowel motivation. Pain control per Dr. Bruce. PT/OT to maximize functional status. Continue to hold Eliquis given recent transfusion and ABLA. Will follow hemoglobin. At time of discharge, care will be returned to patient's PCP, Dr. Bardales. We will follow patient throughout her stay in IRU. Thank you for the consult. Sepsis Assessment - Evaluation Sepsis screening result: No Definite Risk <Joo Cabral - Last Filed: 01/14/17 19:28> Consult Information - Data of Consult Requesting Physician: Michael Bruce MD [facility] Patient Stated Medical History Syncope Yes: IN PAST Cardiac Arrhythmia Yes Heart Murmur Yes Hypertension Yes Hx Incontinence No Post Menopausal Yes Exam Vital Signs: Temperature 97.6 F 01/14/17 16:00 Pulse Rate 91 01/14/17 16:00 Respiratory Rate 15 01/14/17 16:00 Blood Pressure 139/67 01/14/17 16:00 Pulse Oximetry 98 01/14/17 16:00 Oxygen Delivery Method Room Air Height/Weight/BMI: Height 1.61 m Weight 74.3 kg Body Mass Index 28.5 Results - Labs CBC & Chem 7: 01/14/17 04:29 01/14/17 04:29 Assessment and Plan (1) Closed intertrochanteric fracture of right femur Current visit: Yes Status: Acute (2) Acute blood loss as cause of postoperative anemia Current visit: Yes Status: Acute (3) Hyponatremia Current visit: Yes Status: Acute (4) Hyperlipemia Current visit: No Status: Acute DVT Prophylaxis: SCD's Resuscitation Status: Full Code Assessment and Plan: ASSESSMENT: Right Intertrochanteric hip fracture-s/p CM fixation by Dr. Falk on 01/09/17 ABLA- Transfusion on 1 unit pRBC given 01/11 and 01/12 Episode of hypotension and bradycardia 01/08/2017 15 minutes post receiving Toprol Anticoagulation with Eliquis for syncope thought to be secondary to arrhythmia ( currently on hold) Hypertension Hyperlipidemia Hyponatremia Near syncope with orthostatic hypotension. History of syncope, none for the past 1 year. Constipation secondary to pain medications. Hypocalcemia Bradycardia with first-degree AV block Have independently interviewed and examined pt. Chart reviewed. Case discussed with my PA. Above care plan developed with my supervision; agree with above. Doing okay. Still with significant pain with movements and ambulation. When I came in to check this evening, she was walking back from the bathroom. I thought she did very well-was moving slowly and cautiously. Had very good safety awareness getting into chair (reached back with arm and could not feel arm of chair, so she stool back up and repositioned her feet closer to chair before she sat down). Stools with some movement-still full and bloated to abdomen. Appetite with slow increase. Breathing well. BP not decreasing. HGB holding stable. Lungs: clear bilaterally, no crackles or distress CV: regular AB: soft slight distention, BS present MSE: awake alert appropriate Plan: Agree with admission of patient to IRU to maximize functional status. Recommend to continue to hold Eliquis until we are sure hemoglobin stable. Iron and vitamin C to help with anemia. Hold Cozaar - monitor BP--treat standing BP. Watch for BP decrease and orthostasis. Continue with bowel motivation. Continue pain control. Monitor lab. Encourage therapy to maximize functional status. Medically stable for IRU floor activities. Hospital Course Summary Disclaimer: The visit summary below is not to be considered part of the above Progress Note.
[2017-01-14] MEDS: SIMVASTATIN 40 MG TABLET PO SCH (20:35)
[2017-01-15] MEDS: FERROUS SULFATE 324 MG TABLET PO SCH (09:04)
[2017-01-15] MEDS: ASCORBIC ACID 500 MG TABLET PO SCH (09:04)
[2017-01-15] MEDS: HYDROCODONE/APAP 5mg/325mg TABLET PO PRN ×3 (09:04→21:18)
[2017-01-15] MEDS: FAMOTIDINE 20 MG TABLET PO SCH ×2 (09:04→21:11)
[2017-01-15] MEDS: ASPIRIN *EC* 81 MG TABLET PO SCH (09:04)
[2017-01-15] MEDS: SENNA + DOCUSATE TABLET PO SCH ×2 (09:04→21:11)
--- NOTE | 2017-01-15 10:24 | IRU Progress Note ---
- Subjective/Serverity of Illness Danica was evaluated in her room today. She is doing well although is having a bit of pain in the right hip. She slept exceptionally well last night she states. States that bowels are moving. We did discuss her Cheng catheter. I discussed this with Mallorie as well. We will remove that today. She is up and about. She does report some urinary urgency chronically and is concerned about getting to the bathroom on time. Otherwise she seems to be stable. Has a history of bradycardia which was possibly iatrogenic. She denies any lightheadedness, presyncope or syncope. She denies any chest pain or shortness of breath. Exam Vital Signs: Temperature 98.5 F 01/15/17 08:00 Pulse Rate 97 01/15/17 08:00 Respiratory Rate 16 01/15/17 08:00 Blood Pressure 156/89 H 01/15/17 08:00 Pulse Oximetry 95 01/15/17 08:00 Oxygen Delivery Method Room Air Height/Weight/BMI: Height 1.61 m Weight 75.4 kg Body Mass Index 28.5 Comments: The patient is awake, alert and oriented and in some pain involving the right hip. Pupils are equal. The neck is supple. Chest: Clear to auscultation bilaterally. Cor: RR with no gallop, click nor murmur Abd: soft with normo-active bowel sounds. There are no masses, no tenderness and no guarding. Extremities: Has 1+ edema in the right lower extremity as anticipated. Vital signs are stable. She has not been bradycardic here. Her blood pressure is a bit on the high side, possibly due to pain medication. In addition her sodium remains low at 131. Results IRU - Labs Labs: Reviewed lab work with sodium of 131. Diuretic is on hold. Sepsis Assessment - Evaluation Sepsis screening result: No Definite Risk IRU A/P (1) Closed intertrochanteric fracture of right femur Qualifiers: Encounter type: initial encounter Fracture alignment: displaced Qualified Code(s): S72.141A - Displaced intertrochanteric fracture of right femur, initial encounter for closed fracture Current visit: Yes Status: Acute Pain as anticipated regarding the right hip. Remains on hydrocodone 5 mg taking one or 2 tablets as needed for the pain. We will continue the current approach at present. (2) Hypertension Qualifiers: Hypertension type: essential hypertension Qualified Code(s): I10 - Essential (primary) hypertension Current visit: No Status: Chronic Blood pressure is running a bit on the high side. She has not been hypotensive here on the unit. (3) Bradycardia Current visit: No Status: Resolved Has had no further episodes of bradycardia. Denies lightheadedness. (4) Acute blood loss as cause of postoperative anemia Current visit: Yes Status: Acute Does have acute blood loss anemia. For this reason Eliquis is being held. Hemoglobin is stable at present. (5) Hyponatremia Current visit: Yes Status: Acute Sodium remains low at 131. Presumably this is related to prior diuretic use. Rule out SIADH. (6) Slow transit constipation Current visit: Yes Status: Acute DVT Prophylaxis: SCD's Resuscitation Status: Full Code - Course Hospital Course: Michael Bruce MD: 01/15/17 10:25 Patient progressing with therapy. Pain is a barrier to progress. We will remove the Cheng catheterhave discussed with hospitalists. She is concerned about urinary urgency. - Interventions to Obtain Goals PT Treatment Plan: Balance/Proprioception, Functional Activities, Gait Training , Patient/Family Education, Therapeutic Exercise OT Treatment Plan: ADL (Basic Care), Balance Training, IADL, Ther. Exercise for ADL Goals Progress/Modifications: Discussed catheter situation with hospitalists. We will plan remove that today. Please note that the patient's individual plan of care was developed and documented today, requiring review of therapy notes, medical conditions and anticipated functional recovery. This required additional medical decision making with regard to interaction of the patient's medical issues with the anticipated functional recovery. Please see separate document
--- NOTE | 2017-01-15 10:33 | IRU Plan of Care ---
IRU Overall Plan of Care - Date Date: 01/15/17 - Patient Impairments (1) Closed intertrochanteric fracture of right femur Qualifiers: Encounter type: initial encounter Fracture alignment: displaced Qualified Code(s): S72.141A - Displaced intertrochanteric fracture of right femur, initial encounter for closed fracture Code(s): S72.141A - Displaced intertrochanteric fracture of right femur, initial encounter for closed fracture Status: Acute Classification: Present on IRF Admission, IRF Tx That Should Address Diagnosis, Diagnosis Requiring Medical Follow Up (2) Acute blood loss as cause of postoperative anemia Code(s): D62 - Acute posthemorrhagic anemia Status: Acute Classification: IRF Tx That Should Address Diagnosis, Diagnosis Requiring Medical Follow Up (3) Hyponatremia Code(s): E87.1 - Hypo-osmolality and hyponatremia Status: Acute Classification: Present on IRF Admission, IRF Tx That Should Address Diagnosis, Diagnosis Requiring Medical Follow Up (4) Hyperlipemia Qualifiers: Hyperlipidemia type: mixed hyperlipidemia Qualified Code(s): E78.2 - Mixed hyperlipidemia Code(s): E78.5 - Hyperlipidemia, unspecified Status: Acute Classification: Present on IRF Admission, Diagnosis Requiring Medical Follow Up - Relevant Changes Relevant Changes: No Reviewed: I have reviewed the patient's information and concur with the finding and results of the pre-admission screen. Certification: I certify the patient for rehabilitation. - Medical Prognosis Medical Prognosis: Good Vital Signs: Last Vital Signs Temp 98.5 F 01/15/17 08:00 Pulse 97 01/15/17 08:00 Resp 16 01/15/17 08:00 BP 156/89 H 01/15/17 08:00 Pulse Ox 95 01/15/17 08:00 - Anticipated Interventions Anticipated Interventions: The patient requires inpatient IRF care for PT, OT, and/or ST for residuals remaining from hip fracture and repair, hypotension and bradycardia resulting in muscular weakness and strength deficits. ROM Deficit: Right Lower Extremity - FIM Ambulation Distance: 20 Toileting Adaptive Equipment: Grab Bars - Current Functional Status Failed Alternative Therapy: Arrived from Acute Care Patient Requires: The patient requires oversight by rehabilitation physician to manage their rehabilitation treatment plan and multidisciplinary approach to care that can only be provided in an IRF and requires a multidisciplinary approach to care, provided by professional PTs, OTs, STs, dieticians, RTs, rehabilitation nurses and is not available in lesser levels of care. Physical Therapy Minutes: 90 Occupational Therapy Minutes: 90 Therapy: The patient is to receive therapy at least 5 days a week. - Anticipated LOS/Outcomes Anticipated Functional Outcome: It is anticipated the patient will return to independent or modified independent level of functioning, able to dress herself without assistance and ambulate safely. Anticipated DC Destination: Home, Self Retirement Safety Plan: The patient will be provided with the development of a Home Safety Plan for return to a home or home-like environment and and to ensure safety post discharge. - Plan to Avoid Complications Barriers to Attaining Goals: Endurance, Pain Control Plan to Avoid Complications: The patient cannot receive this care in a lesser intensive setting such as Senior Care or Outpatient Therapy due to the patient requiring the following : Close monitoring of blood pressure to avoid risk of falling (hypotension), monitoring of pulse in view of history of bradycardia, pain control..
--- NOTE | 2017-01-15 15:05 | IRU Team Meeting ---
IRU Team Meeting - Nursing Vital Signs: Vital Signs - 24 hr 01/14/17 16:00 01/14/17 19:56 01/15/17 08:00 Temperature 97.6 F 98.1 F 98.5 F Pulse Rate 91 83 97 Respiratory Rate 15 16 16 Blood Pressure 139/67 145/80 H 156/89 H Pulse Oximetry 98 97 95 Current Medications: Acetaminophen (Tylenol) 500 mg PO Q5H PRN PRN Reason: Discomfort Last Admin: 01/14/17 11:22 Dose: 500 mg Acetaminophen/Hydrocodone Bitart (Quinn 5/325) 1 - 2 tab PO Q4H PRN PRN Reason: Pain Last Admin: 01/15/17 09:04 Dose: 1 tab Apixaban (Eliquis) 5 mg PO BID [facility] Ascorbic Acid (Vitamin C) 500 mg PO [facility] Last Admin: 01/15/17 09:04 Dose: 500 mg Aspirin (Ecotrin) 81 mg PO DAILY [facility] Last Admin: 01/15/17 09:04 Dose: 81 mg Bacitracin (Bacitracin Oint) 1 applic TOP PRN PRN PRN Reason: TO ABRASIONS ON ARMS Bisacodyl (Dulcolax) 10 mg RECTALLY DAILY PRN PRN Reason: Constipation Famotidine (Pepcid) 20 mg PO BID [facility] Last Admin: 01/15/17 09:04 Dose: 20 mg Ferrous Sulfate (Feosol) 324 mg PO WB [facility] Last Admin: 01/15/17 09:04 Dose: 324 mg Losartan Potassium (Cozaar) 25 mg PO DAILY [facility] Magnesium Hydroxide (Mom) 30 ml PO DAILY PRN PRN Reason: Constipation Metoprolol Succinate (Toprol Xl) 50 mg PO 1730 [facility] Last Admin: 01/14/17 16:47 Dose: 50 mg Senna/Docusate Sodium (Senna Plus Tablet) 1 tab PO BID [facility] Last Admin: 01/15/17 09:04 Dose: 1 tab Simvastatin (Zocor) 40 mg PO [facility] Last Admin: 01/14/17 20:35 Dose: 40 mg Comments: I certify that I personally led the interdisciplinary team meeting and agree with comments, barriers and goals indicated. Team meeting was held in the patient's room with the patient and the following family members present: Daughter, patient's . Medically the patient has had some anemia which has been stable. Her sodium is somewhat decreased. She is eating reasonably well. Pain continues to be the primary limitation along with some endurance. - Physical Therapy Comments: Patient is settling into acute rehabilitation. She is improving regarding transfers. She is walking further on a daily basis. - Occupational Therapy Lower Body Dressing Comment: Occupational therapy is working on activities of daily living including dressing and transfers. Patient is just starting with therapy. - Care Plan Anticipated Length of Stay: 7 Anticipated DC Destination: Home, Self Care Interventions/Goals: Barriers to progress: Pain in left hip, reduced endurance Goals: Modified independent dressing, reduction in pain, walking 150 feet with walker independently, normalized sodium of 135 or greater.
[2017-01-15] MEDS: SIMVASTATIN 40 MG TABLET PO SCH (21:11)
[2017-01-16] MEDS: HYDROCODONE/APAP 5mg/325mg TABLET PO PRN ×4 (07:57→22:08)
[2017-01-16] MEDS: ASCORBIC ACID 500 MG TABLET PO SCH (08:42)
[2017-01-16] MEDS: FERROUS SULFATE 324 MG TABLET PO SCH (08:42)
[2017-01-16] MEDS: LOSARTAN 50 MG TABLET PO SCH (08:43)
[2017-01-16] MEDS: FAMOTIDINE 20 MG TABLET PO SCH ×2 (08:44→21:10)
[2017-01-16] MEDS: ASPIRIN *EC* 81 MG TABLET PO SCH (08:44)
[2017-01-16] MEDS: SENNA + DOCUSATE TABLET PO SCH ×2 (08:45→21:10)
--- NOTE | 2017-01-16 10:31 | IRU Progress Note ---
- Subjective/Serverity of Illness Danica was evaluated in her room today just after therapy. Continues to have quite a bit of discomfort in the right hip with ambulation. Pain is predominantly with weightbearing. In addition, she complains of lightheadedness with activity. She describes this as a "wooziness." Blood pressures however are stable and are not low. She denies true vertigo and denies nausea. She does report a slightly reduced appetite. She has had no emesis. The right leg continues to be edematous. Eliquis is currently being held due to anemia. Hemoglobin is improved at this time from 8.3 at 8.7. I would discuss with the hospitalists as to whether we can resume Eliquis. She is cooperating with therapy and is making improvements. Exam Vital Signs: Temperature 98.6 F 01/16/17 07:53 Pulse Rate 95 01/16/17 07:53 Respiratory Rate 16 01/16/17 07:53 Blood Pressure 145/71 H 01/16/17 07:53 Pulse Oximetry 95 01/16/17 07:53 Height/Weight/BMI: Height 1.61 m Weight 75.4 kg Body Mass Index 28.5 Comments: The patient is awake, alert and oriented and in no acute distress. However she does have pain with ambulation. When she is sitting there is no significant discomfort. Pupils are equal. The neck is supple. Chest: Clear to auscultation bilaterally. Cor: RR with no gallop, click nor murmur Abd: soft with normo-active bowel sounds. There are no masses, no tenderness and no guarding. Extremities: There continues to be quite a bit of edema in the right leg which is the operated side. Hemoglobin increased from 8.3 up to 8.7. Sodium went from 131 up to 133. Her blood pressures are stable.. Results IRU - Labs Labs: Reviewed current labs. Sepsis Assessment - Evaluation Sepsis screening result: No Definite Risk IRU A/P (1) Closed intertrochanteric fracture of right femur Qualifiers: Encounter type: initial encounter Fracture alignment: displaced Qualified Code(s): S72.141A - Displaced intertrochanteric fracture of right femur, initial encounter for closed fracture Current visit: Yes Status: Acute Pain continues to be a barrier to discharge. She is not certain the pain medications really provide much benefit. She will continue working with therapy and is making progress. (2) Acute blood loss as cause of postoperative anemia Current visit: Yes Status: Acute Hemoglobin improved from 8.3 up to 8.7. No further evidence of blood loss. (3) Hyponatremia Current visit: Yes Status: Acute Sodium is improved up to 133 from 131. (4) Hyperlipemia Qualifiers: Hyperlipidemia type: mixed hyperlipidemia Qualified Code(s): E78.2 - Mixed hyperlipidemia Current visit: No Status: Acute DVT Prophylaxis: SCD's Resuscitation Status: Full Code - Course Hospital Course: Michael Bruce MD: 01/15/17 10:25 Patient progressing with therapy. Pain is a barrier to progress. We will remove the Cheng catheterhave discussed with hospitalists. She is concerned about urinary urgency. 01/16/17 10:32 Complains of some lightheadedness of uncertain etiology. Blood pressures are stable. This is not true vertigo. Does not have nausea nor vomiting. Right leg edema noted. Hemoglobin improved. I will check with the hospitalists as to whether we can restart the Eliquis. - Interventions to Obtain Goals PT Treatment Plan: Balance/Proprioception, Functional Activities, Gait Training , Patient/Family Education, Therapeutic Exercise OT Treatment Plan: ADL (Basic Care), Balance Training, IADL, Ther. Exercise for ADL Goals Progress/Modifications: Patient is improving with therapy. Does have edema in the right leg and we are continuing to monitor her anemia. Sodium is improved. I will check with the hospitalist regarding the Eliquis.
--- NOTE | 2017-01-16 11:02 | Progress Note ---
<Enedina Jack - Last Filed: 01/16/17 10:52> Subjective: 01/15/17: MarcieCristina Mishra is seen today in follow up for her recent closed right hip fracture with repair, post op anemia and persistent hyponatremia. She is seen in her room, while working with physical therapy on putting on her shoes. She reports that she feels "slow" today, despite sleeping well last night. She states that she had fairly significant pain in her right hip this morning and feels like her right leg is more swollen today than previously. She also reports that this morning while participating in therapy, she became lightheaded while standing and preparing to walk the stairs. After resting, she was able to continue her therapy. She denies any proceeding symptoms including no chest pain, shortness of breath, headache, change in vision, nausea, vomiting or diaphoresis. Her appetite remains stable and her bowels are moving. She denies any blood in her stools or urine. Prior records were reviewed and indicate that overall, she is doing well. On exam, she is seen while sitting on the side of the bed, attempting to put on her shows with assistance. She is alert and orientated x 3 and in no apparent distress. Cardiac exam reveals regular rate and rhythm with 2/6 murmur noted. Lung sounds are clear bilaterally without signs of distress. Abdomen is soft, nontender with active bowel sounds. 2-3+ edema noted to right lower extremity as compared to left lower extremity which has no edema. Mild tenderness to right calf with palpation. 1+ pedal pulses bilaterally. Labs today revealed a stable hemoglobin at 8.7 and new thrombocytosis with platelets at 469. Persistent hyponatremia with sodium slightly improved at 133, as compared to 131 yesterday. BMP otherwise unremarkable. Blood pressures remain slightly elevated with average systolic pressure between 140's and 150's. Objective Vital signs: Temperature 98.6 F 01/16/17 07:53 Pulse Rate 95 01/16/17 07:53 Respiratory Rate 16 01/16/17 07:53 Blood Pressure 145/71 H 01/16/17 07:53 Pulse Oximetry 95 01/16/17 07:53 Height/Weight/BMI: Height 5 ft 3.5 in Weight 166 lb 3.657 oz Body Mass Index 28.5 - Constitutional Present: no acute distress, well nourished, well developed, cooperative - Routine HEENT Exam Head: Present: normocephalic, atraumatic Eye: Present: EOMI. Absent: conjunctival icterus ENT: Present: mucous membranes moist - Routine Respiratory Exam Present: CTA bilaterally. Absent: accessory muscle use, wheezes, crackles - Routine Cardiovascular Exam Present: S1, S2, murmur (2/6) - Routine Abdominal Exam Present: soft, normoactive bowel sounds, non distended, non tender - Routine Extremities Exam Present: edema (right lower extremity 2-3+), pulses intact (1+), calf tenderness (right). Absent: cyanosis, clubbing - Routine Back/Spine/Pelvis Exam Back/Spine: Present: full ROM - Routine Musculoskeletal Exam Musculoskeletal: Present: moving extremities well, limited range of motion ( right hip secondary to pain) - Routine Skin Exam Present: intact, dry, warm. Absent: jaundice Comments: afebrile - Routine Neurological Exam Present: alert, oriented X3, moving all extremities, normal speech - Routine Psychiatric Exam Present: normal affect, cooperative Results - Labs CBC & Chem 7: 01/16/17 05:11 01/16/17 05:11 Assessment and Plan (1) Hyperlipemia Current visit: No Status: Acute (2) Closed intertrochanteric fracture of right femur Current visit: Yes Status: Acute (3) Acute blood loss as cause of postoperative anemia Current visit: Yes Status: Acute (4) Hyponatremia Current visit: Yes Status: Acute DVT Prophylaxis: Eliquis GI Prophylaxis: Pepcid Resuscitation Status: Full Code Assessment and Plan: 01/15/17: [place]. ASSESSMENT: Right lower extremity pain and swelling, acute. * Patient complains of worsening right lower swelling and calf pain today. Pedal pulses 1+ bilaterally. Patient has been off her Eliquis in light of her post-op anemia. Symptoms concerning for DVT. Will obtain US now for further evaluation. * Hemoglobin remains stable. Will restart Eliquis today for reported history of arrhythmia (1st degree AV block) and recheck CBC on 01/18 to monitor blood counts. Monitor closely for signs of bleeding. Near syncope, acute. * History of syncope, none for the past 1 year. Previous near syncope with orthostatic hypotension. Patient reports feeling lightheaded today during therapy. Will obtain orthostatic blood pressures now and monitor closely. Will also obtain EKG to assess for arrhythmia, history of 1st degree AV block as well as UA to assess for infection. Monitor closely. Patient appears to have good safety awareness. Hyponatremia, acute. * Sodium stable at 133. Will place on 1800 fluid restriction and recheck BMP on 01/18 to monitor electrolytes and renal function. Right Intertrochanteric hip fracture-s/p CM fixation by Dr. Falk on 01/09/17. * Continue therapy and pain control per Dr. Burce for improvement in functional ability and gait. She continues to have difficulty with pain control especially with movement and ambulation. * Continue with bowel motivation for constipation secondary to narcotic pain medication. * Encourage incentive spirometry for pulmonary toileting. ABLA, acute. * Transfusion of 1 unit pRBC given 01/11 and 01/12. Hemoglobin stable at 8.7 today. Continue iron and vitamin C supplementation for anemia. Will check B12 as well as CBC on 01/18 to monitor blood counts. Hypertension * Episode of hypotension and bradycardia 01/08/2017 15 minutes post receiving Toprol. * Currently on Losartan 25mg daily and metoprolol 50mg daily which is to be held if blood pressure <120. Average systolic blood pressure remain elevated, around 140's-150's. Will hold off on medication changes at this time in light of recent lightheadedness. Will obtain orthostatic blood pressures now. Hyperlipidemia, chronic. * Continue home Zocor. - Time spent with patient 25 - 35 minutes Sepsis Assessment - Evaluation Sepsis screening result: No Definite Risk Hospital Course Summary Disclaimer: The visit summary below is not to be considered part of the above Progress Note. Hospital Course: Assessment Right Intertrochanteric hip fracture-s/p CM fixation by Dr. Falk on 01/09/17 ABLA- Transfusion on 1 unit pRBC given 01/11 and 01/12 Episode of hypotension and bradycardia 01/08/2017 15 minutes post receiving Toprol Anticoagulation with Eliquis for syncope thought to be secondary to arrhythmia ( currently on hold) Hypertension Hyperlipidemia Hyponatremia Near syncope with orthostatic hypotension. History of syncope, none for the past 1 year. Constipation secondary to pain medications. Hypocalcemia Bradycardia with first-degree AV block 01/14/17 Medically stable for participation in IRU. Follow sodium levels. No intervention at this point. Continue bowel motivation. Pain control per Dr. Bruce. PT/OT to maximize functional status. Continue to hold Eliquis given recent transfusion and ABLA. Will follow hemoglobin. At time of discharge, care will be returned to patient's PCP, Dr. Bardales. We will follow patient throughout her stay in IRU. Thank you for the consult. 01/16/17 11:22 Right lower extremity pain and swelling, acute. * Patient complains of worsening right lower swelling and calf pain today. Pedal pulses 1+ bilaterally. Patient has been off her Eliquis in light of her post-op anemia. Symptoms concerning for DVT. Will obtain US now for further evaluation. * Hemoglobin remains stable. Will restart Eliquis today for reported history of arrhythmia (1st degree AV block) and recheck CBC on 01/18 to monitor blood counts. Monitor closely for signs of bleeding. Near syncope, acute. * History of syncope, none for the past 1 year. Previous near syncope with orthostatic hypotension. Patient reports feeling lightheaded today during therapy. Will obtain orthostatic blood pressures now and monitor closely. Will also obtain EKG to assess for arrhythmia, history of 1st degree AV block as well as UA to assess for infection. Monitor closely. Patient appears to have good safety awareness. Hyponatremia, acute. * Sodium stable at 133. Will place on 1800 fluid restriction and recheck BMP on 01/18 to monitor electrolytes and renal function. Right Intertrochanteric hip fracture-s/p CM fixation by Dr. Falk on 01/09/17. * Continue therapy and pain control per Dr. Bruce for improvement in functional ability and gait. She continues to have difficulty with pain control especially with movement and ambulation. * Continue with bowel motivation for constipation secondary to narcotic pain medication. * Encourage incentive spirometry for pulmonary toileting. ABLA, acute. * Transfusion of 1 unit pRBC given 01/11 and 01/12. Hemoglobin stable at 8.7 today. Continue iron and vitamin C supplementation for anemia. Will check B12 as well as CBC on 01/18 to monitor blood counts. Hypertension * Episode of hypotension and bradycardia 01/08/2017 15 minutes post receiving Toprol. * Currently on Losartan 25mg daily and metoprolol 50mg daily which is to be held if blood pressure <120. Average systolic blood pressure remain elevated, around 140's-150's. Will hold off on medication changes at this time in light of recent lightheadedness. Will obtain orthostatic blood pressures now. Hyperlipidemia, chronic. * Continue home Zocor. <Joo Cabral D - Last Filed: 01/16/17 19:59> Objective Vital signs: Temperature 98.1 F 01/16/17 15:49 Pulse Rate 88 01/16/17 15:49 Respiratory Rate 16 01/16/17 15:49 Blood Pressure 143/71 H 01/16/17 15:49 Pulse Oximetry 99 01/16/17 15:49 Height/Weight/BMI: Height 1.61 m Weight 75.4 kg Body Mass Index 28.5 Results - Labs CBC & Chem 7: 01/16/17 05:11 01/16/17 05:11 Assessment and Plan (1) Closed intertrochanteric fracture of right femur Current visit: Yes Status: Acute (2) Acute blood loss as cause of postoperative anemia Current visit: Yes Status: Acute (3) Hyponatremia Current visit: Yes Status: Acute (4) Hyperlipemia Current visit: No Status: Acute Assessment and Plan: Assessment Right Intertrochanteric hip fracture-s/p CM fixation by Dr. Falk on 01/09/17 ABLA- Transfusion on 1 unit pRBC given 01/11 and 01/12 Episode of hypotension and bradycardia 01/08/2017 15 minutes post receiving Toprol Anticoagulation with Eliquis for syncope thought to be secondary to arrhythmia ( currently on hold) Hypertension Hyperlipidemia Hyponatremia Near syncope with orthostatic hypotension. History of syncope, none for the past 1 year. Constipation secondary to pain medications. Hypocalcemia Bradycardia with first-degree AV block Have independently interviewed and examined pt. Chart reviewed. Case discussed with my PA. Above care plan developed with my supervision; agree with above. Doing well this evening. Tolerating therapy-progressing. Able to walk further- stability improving gradually. Still having pain with movements-feels is about the same (but is quick to point out she is walking further each time). No pain when at rest. Eating improving. Bowel moving. Urinating well. Lungs: decreased, no distress CV: regular AB: soft nt/nd +BS MSE: awake alert appropriate Plan: Will restart Eliquis at 2.5mg BID - monitor blood counts. Continue current antihypertensives. Encourage continuation of therapy; progressing. Medically stable for IRU floor activities. Hospital Course Summary Disclaimer: The visit summary below is not to be considered part of the above Progress Note.
--- NOTE | 2017-01-16 11:37 | Ultrasound Report ---
Indication: swelling, pain, recent hip surgery PROCEDURE: US venous doppler LE RT: Encounter: Initial Comparison: None Technique: Color Doppler duplex and grayscale sonographic imaging of the right lower extremity was performed. Findings: There is no evidence for acute deep venous thrombosis in the right thigh. Specifically, serial graded compression was performed from the inguinal ligament to the popliteal bifurcation, on the right thigh, demonstrating appropriate compressibility of the deep venous system. In addition, color and pulsed Doppler demonstrate appropriate spontaneous flow, variation with respiration, and augmentation with calf compression. At the ankle, normal flow is identified in the posterior tibial veins; these vessels are also normal in caliber. Impression: No evidence of acute DVT in the right lower limb. .
[2017-01-16] MEDS: APIXABAN 5 MG TABLET PO SCH ×2 (18:40→21:13)
[2017-01-16] MEDS: SIMVASTATIN 40 MG TABLET PO SCH (21:10)
[2017-01-17] MEDS: HYDROCODONE/APAP 5mg/325mg TABLET PO PRN ×4 (02:22→21:40)
[2017-01-17] MEDS: ASPIRIN *EC* 81 MG TABLET PO SCH (09:03)
[2017-01-17] MEDS: LOSARTAN 50 MG TABLET PO SCH (09:03)
[2017-01-17] MEDS: FAMOTIDINE 20 MG TABLET PO SCH ×2 (09:03→21:40)
[2017-01-17] MEDS: APIXABAN 5 MG TABLET PO SCH ×2 (09:03→21:38)
[2017-01-17] MEDS: FERROUS SULFATE 324 MG TABLET PO SCH (09:03)
[2017-01-17] MEDS: ASCORBIC ACID 500 MG TABLET PO SCH (09:04)
[2017-01-17] MEDS: SENNA + DOCUSATE TABLET PO SCH ×2 (09:04→21:40)
[2017-01-17] MEDS: SIMVASTATIN 40 MG TABLET PO SCH (21:40)
[2017-01-18] MEDS: FERROUS SULFATE 324 MG TABLET PO SCH (08:41)
[2017-01-18] MEDS: ASPIRIN *EC* 81 MG TABLET PO SCH (08:42)
[2017-01-18] MEDS: APIXABAN 5 MG TABLET PO SCH ×2 (08:42→20:17)
[2017-01-18] MEDS: FAMOTIDINE 20 MG TABLET PO SCH ×2 (08:42→20:16)
[2017-01-18] MEDS: ASCORBIC ACID 500 MG TABLET PO SCH (08:42)
[2017-01-18] MEDS: SENNA + DOCUSATE TABLET PO SCH ×3 (08:42→21:49)
[2017-01-18] MEDS: LOSARTAN 50 MG TABLET PO SCH (08:42)
--- NOTE | 2017-01-18 10:33 | IRU Progress Note ---
- Subjective/Serverity of Illness Danica continues to report significant discomfort in the right hip. This is a barrier to her progress with regard to ambulation. However she is improving with regard to transfers and particularly improving with regard to toileting and toileting transfers. She is able to walk with standby assistance versus contact-guard assistance and sometimes requires a higher level of assistance. She is limited to less than 150 feet with ambulation secondary to her discomfort in the right hip. The following medical problems are reviewed and updated as noted below: 1. Hypertension and orthostatic hypotension: Blood pressures are variable and sometimes upended 160 range. Overall she has not had orthostasis however. 2. Bradycardia: This problem appears to be stable and has not recurred. 3. Hyponatremia: Sodium is improved at 133. 4. Leukocytosis: This problem appears to have resolved. Etiology was not clear. 5. Acute blood loss anemia: Hemoglobin is 8.2 g percent. This is stable. 6. Constipation: Likely secondary to pain medications 7. Anorexia: Continues to complain of poor appetite. However she relates this to the last several months and not necessarily worse with the current situation. Despite a reduced appetite she states that she has not really lost weight. Exam Vital Signs: Temperature 98.6 F 01/18/17 08:00 Pulse Rate 89 01/18/17 08:00 Respiratory Rate 20 01/17/17 21:30 Blood Pressure 166/80 H 01/18/17 08:00 Pulse Oximetry 98 01/18/17 08:00 Height/Weight/BMI: Height 1.61 m Weight 73.3 kg Body Mass Index 28.5 Comments: The patient is awake, alert and oriented and in no acute distress. Pupils are equal. The neck is supple. Chest: Clear to auscultation bilaterally. Cor: RR with no gallop, click nor murmur Abd: soft with normo-active bowel sounds. There are no masses, no tenderness and no guarding. Extremities: Right leg edema much improved. Recent venous Doppler demonstrated no evidence of DVT. Pulses are adequate. Sepsis Assessment - Evaluation Sepsis screening result: No Definite Risk IRU A/P (1) Closed intertrochanteric fracture of right femur Qualifiers: Encounter type: initial encounter Fracture alignment: displaced Qualified Code(s): S72.141A - Displaced intertrochanteric fracture of right femur, initial encounter for closed fracture Current visit: Yes Status: Acute Continues to demonstrate significant discomfort in the right hip. This is limiting ambulation. However she is making progress with toileting and other transfers. (2) Acute blood loss as cause of postoperative anemia Current visit: Yes Status: Acute Hemoglobin has remained stable. No evidence of further blood loss. She is back on Eliquis and tolerating it well. (3) Hyponatremia Current visit: Yes Status: Acute Sodium is 133. (4) Hyperlipemia Qualifiers: Hyperlipidemia type: mixed hyperlipidemia Qualified Code(s): E78.2 - Mixed hyperlipidemia Current visit: No Status: Acute DVT Prophylaxis: Eliquis Resuscitation Status: Full Code - Course Hospital Course: Michael Bruce MD: 01/15/17 10:25 Patient progressing with therapy. Pain is a barrier to progress. We will remove the Cheng catheterhave discussed with hospitalists. She is concerned about urinary urgency. 01/16/17 10:32 Complains of some lightheadedness of uncertain etiology. Blood pressures are stable. This is not true vertigo. Does not have nausea nor vomiting. Right leg edema noted. Hemoglobin improved. I will check with the hospitalists as to whether we can restart the Eliquis. 01/18/17 10:33 Continues to make progress with therapies. In particular she is improving with toileting and transfers. Ambulatory distance and assistance is limited by pain in the right hip. Continues to complain of anorexia but apparently has not lost weight. - Interventions to Obtain Goals PT Treatment Plan: Balance/Proprioception, Functional Activities, Gait Training , Patient/Family Education, Therapeutic Exercise OT Treatment Plan: ADL (Basic Care), Balance Training, IADL, Ther. Exercise for ADL Goals Progress/Modifications: Time spent with patient and on the floor documentin minutes Barriers to dismissal: Pain in right hip, requires assistance for ambulation, anorexia, endurance. Medical decision-making: Consider increasing pain medications. She declines at the present time. Also reviewed her blood pressure which is elevated intermittently. This may be related to her pain control. It is appropriate to continue therapy at the current level.
[2017-01-18] MEDS: HYDROCODONE/APAP 5mg/325mg TABLET PO PRN ×4 (10:36→22:52)
--- NOTE | 2017-01-18 11:41 | Progress Note ---
<Nicole Mabry - Last Filed: 01/18/17 13:24> Subjective: Patient is seen lying in her bed after therapy. Overall, she reports she is doing well. She does have quite a bit of pain with therapy. Her bowels are moving. No complaints of chest pain, shortness of breath, cough or nausea. She reports that the swelling in her right leg has decreased significantly. It does swell quite a bit after therapy though. Objective Vital signs: Temperature 98.6 F 01/18/17 08:00 Pulse Rate 89 01/18/17 08:00 Respiratory Rate 20 01/17/17 21:30 Blood Pressure 166/80 H 01/18/17 08:00 Pulse Oximetry 98 01/18/17 08:00 Height/Weight/BMI: Height 1.61 m Weight 73.3 kg Body Mass Index 28.5 - Constitutional Present: no acute distress, well nourished, well developed - Routine HEENT Exam Head: Present: normocephalic, atraumatic ENT: Present: mucous membranes moist - Routine Respiratory Exam Present: CTA bilaterally. Absent: wheezes - Routine Cardiovascular Exam Present: RRR, S1, S2, murmur (grade 2) - Routine Abdominal Exam Present: soft, normoactive bowel sounds, non distended. Absent: tenderness - Routine Extremities Exam Present: edema (2-3+ edema to the right lower leg. 1+ edema left lower leg), normal capillary refill Comments: Diffuse ecchymosis to left upper leg - Routine Skin Exam Present: dry, warm - Routine Neurological Exam Present: alert, oriented X3 - Routine Lymphatic Exam Lymphatic: Absent: adenopathy - Routine Psychiatric Exam Present: normal affect, normal thought process Results - Labs CBC & Chem 7: 01/18/17 05:01 01/18/17 05:01 Assessment and Plan (1) Closed intertrochanteric fracture of right femur Current visit: Yes Status: Acute (2) Hyperlipemia Current visit: No Status: Acute (3) Acute blood loss as cause of postoperative anemia Current visit: Yes Status: Acute (4) Hyponatremia Current visit: Yes Status: Acute Assessment and Plan: Assessment Right Intertrochanteric hip fracture-s/p CM fixation by Dr. Falk on 01/09/17 ABLA- Transfusion on 1 unit pRBC given 01/11 and 01/12 Episode of hypotension and bradycardia 01/08/2017 15 minutes post receiving Toprol Anticoagulation with Eliquis for syncope thought to be secondary to arrhythmia Hypertension Hyperlipidemia Near syncope with orthostatic hypotension. History of syncope, none for the past 1 year. Constipation secondary to pain medications. PLAN Black stool is noted in the chart. Patient was started on iron supplementation due to acute blood loss anemia a few days ago, suspect this is the cause of the dark stools. Patient without symptoms. If she has a drop in hemoglobin, will check Hemoccult. Continue to monitor blood pressures. No medicine changes at this point. Sepsis Assessment - Evaluation Sepsis screening result: No Definite Risk Hospital Course Summary Disclaimer: The visit summary below is not to be considered part of the above Progress Note. Hospital Course: Assessment Right Intertrochanteric hip fracture-s/p CM fixation by Dr. Falk on 01/09/17 ABLA- Transfusion on 1 unit pRBC given 01/11 and 01/12 Episode of hypotension and bradycardia 01/08/2017 15 minutes post receiving Toprol Anticoagulation with Eliquis for syncope thought to be secondary to arrhythmia ( currently on hold) Hypertension Hyperlipidemia Hyponatremia Near syncope with orthostatic hypotension. History of syncope, none for the past 1 year. Constipation secondary to pain medications. Hypocalcemia Bradycardia with first-degree AV block 01/14/17 Medically stable for participation in IRU. Follow sodium levels. No intervention at this point. Continue bowel motivation. Pain control per Dr. Bruce. PT/OT to maximize functional status. Continue to hold Eliquis given recent transfusion and ABLA. Will follow hemoglobin. At time of discharge, care will be returned to patient's PCP, Dr. Bardales. We will follow patient throughout her stay in IRU. Thank you for the consult. 01/16/17 11:22 Right lower extremity pain and swelling, acute. * Patient complains of worsening right lower swelling and calf pain today. Pedal pulses 1+ bilaterally. Patient has been off her Eliquis in light of her post-op anemia. Symptoms concerning for DVT. Will obtain US now for further evaluation. * Hemoglobin remains stable. Will restart Eliquis today for reported history of arrhythmia (1st degree AV block) and recheck CBC on 01/18 to monitor blood counts. Monitor closely for signs of bleeding. Near syncope, acute. * History of syncope, none for the past 1 year. Previous near syncope with orthostatic hypotension. Patient reports feeling lightheaded today during therapy. Will obtain orthostatic blood pressures now and monitor closely. Will also obtain EKG to assess for arrhythmia, history of 1st degree AV block as well as UA to assess for infection. Monitor closely. Patient appears to have good safety awareness. Hyponatremia, acute. * Sodium stable at 133. Will place on 1800 fluid restriction and recheck BMP on 01/18 to monitor electrolytes and renal function. Right Intertrochanteric hip fracture-s/p CM fixation by Dr. Falk on 01/09/17. * Continue therapy and pain control per Dr. Bruce for improvement in functional ability and gait. She continues to have difficulty with pain control especially with movement and ambulation. * Continue with bowel motivation for constipation secondary to narcotic pain medication. * Encourage incentive spirometry for pulmonary toileting. ABLA, acute. * Transfusion of 1 unit pRBC given 01/11 and 01/12. Hemoglobin stable at 8.7 today. Continue iron and vitamin C supplementation for anemia. Will check B12 as well as CBC on 01/18 to monitor blood counts. Hypertension * Episode of hypotension and bradycardia 01/08/2017 15 minutes post receiving Toprol. * Currently on Losartan 25mg daily and metoprolol 50mg daily which is to be held if blood pressure <120. Average systolic blood pressure remain elevated, around 140's-150's. Will hold off on medication changes at this time in light of recent lightheadedness. Will obtain orthostatic blood pressures now. Hyperlipidemia, chronic. * Continue home Zocor. 01/18/17 Black stool is noted in the chart. Patient was started on iron supplementation due to acute blood loss anemia a few days ago, suspect this is the cause of the dark stools. Patient without symptoms. If she has a drop in hemoglobin, will check Hemoccult. Continue to monitor blood pressures. No medicine changes at this point <Joo Cabral - Last Filed: 01/18/17 17:08> Objective Vital signs: Temperature 98.6 F 01/18/17 08:00 Pulse Rate 89 01/18/17 08:00 Respiratory Rate 20 01/17/17 21:30 Blood Pressure 166/80 H 01/18/17 08:00 Pulse Oximetry 98 01/18/17 08:00 Height/Weight/BMI: Height 1.61 m Weight 73.3 kg Body Mass Index 28.5 Results - Labs CBC & Chem 7: 01/18/17 05:01 01/18/17 05:01 Assessment and Plan (1) Hyperlipemia Current visit: No Status: Acute (2) Closed intertrochanteric fracture of right femur Current visit: Yes Status: Acute (3) Acute blood loss as cause of postoperative anemia Current visit: Yes Status: Acute (4) Hyponatremia Current visit: Yes Status: Acute DVT Prophylaxis: Eliquis Resuscitation Status: Full Code Assessment and Plan: Assessment Right Intertrochanteric hip fracture-s/p CM fixation by Dr. Falk on 01/09/17 ABLA- Transfusion on 1 unit pRBC given 01/11 and 01/12 Episode of hypotension and bradycardia 01/08/2017 15 minutes post receiving Toprol Anticoagulation with Eliquis for syncope thought to be secondary to arrhythmia Hypertension Hyperlipidemia Near syncope with orthostatic hypotension. History of syncope, none for the past 1 year. Constipation secondary to pain medications. Have independently interviewed and examined pt. Chart reviewed. Case discussed with my PA. Above care plan developed with my supervision; agree with above. Tolerating therapy well-able to walk further and better with time. Still having pain with therapy-premedicating with pain meds before she does activities. Breathing stable-not feeling congestion, cough, SOA or having pain with breathing. No chest pain. Eating well. Urinating well. Lungs: clear CV: regular AB: soft nt/nd MSE: awake alert appropriate Plan: Continue with IRU to maximize patient's functional status. Continue with pain control. Recheck BMP in am due to resolving hyponatremia. Check CBC in am due to anemia. Continue with supportive care. Medically stable for IRU floor care. Hospital Course Summary Disclaimer: The visit summary below is not to be considered part of the above Progress Note.
[2017-01-18] MEDS: SIMVASTATIN 40 MG TABLET PO SCH (20:16)
[2017-01-19] MEDS: ASCORBIC ACID 500 MG TABLET PO SCH (08:13)
[2017-01-19] MEDS: APIXABAN 5 MG TABLET PO SCH ×2 (08:13→22:03)
[2017-01-19] MEDS: HYDROCODONE/APAP 5mg/325mg TABLET PO PRN ×3 (08:13→22:07)
[2017-01-19] MEDS: SENNA + DOCUSATE TABLET PO SCH ×2 (08:14→22:03)
[2017-01-19] MEDS: FAMOTIDINE 20 MG TABLET PO SCH ×2 (08:14→22:03)
[2017-01-19] MEDS: FERROUS SULFATE 324 MG TABLET PO SCH (08:14)
[2017-01-19] MEDS: ASPIRIN *EC* 81 MG TABLET PO SCH (08:14)
[2017-01-19] MEDS: LOSARTAN 50 MG TABLET PO SCH (08:14)
[2017-01-19] MEDS ORDERED: DIPHENHYDRAMINE 2% CREAM 28gm TOP PRN (13:15)
--- NOTE | 2017-01-19 13:17 | Progress Note ---
Subjective: Danica is seen today following request from nursing staff. Danica reports that she got some type of "bite" on posterior left upper arm overnight. She complains of having itching. No erythema or induration. No systemic symptoms including fevers or chills, nausea, vomiting or other concerns. Overall she is doing well with therapy. She notes right lower extremity edema continues to improve. Objective Vital signs: Temperature 97.0 F 01/19/17 08:00 Pulse Rate 88 01/19/17 08:00 Respiratory Rate 16 01/19/17 08:00 Blood Pressure 152/78 H 01/19/17 08:00 Pulse Oximetry 100 01/19/17 08:00 Height/Weight/BMI: Height 1.61 m Weight 73.3 kg Body Mass Index 28.5 - Constitutional Present: no acute distress, well nourished, well developed - Routine HEENT Exam Eye: Present: EOMI ENT: Present: mucous membranes moist, dentition normal - Routine Respiratory Exam Present: CTA bilaterally. Absent: wheezes - Routine Cardiovascular Exam Present: RRR, S1, S2. Absent: murmur - Routine Abdominal Exam Present: soft, normoactive bowel sounds, non distended. Absent: tenderness - Routine Extremities Exam Present: normal capillary refill - Routine Back/Spine/Pelvis Exam Back image: 1 - 2 cm area of erythema, likely insect bite - Routine Skin Exam Present: intact, dry, warm - Routine Neurological Exam Present: alert, oriented X3 - Routine Lymphatic Exam Lymphatic: Absent: adenopathy - Routine Psychiatric Exam Present: normal affect, normal thought process Results - Labs CBC & Chem 7: 01/19/17 04:42 01/19/17 04:42 Assessment and Plan (1) Hyperlipemia Current visit: No Status: Acute (2) Closed intertrochanteric fracture of right femur Current visit: Yes Status: Acute (3) Acute blood loss as cause of postoperative anemia Current visit: Yes Status: Acute (4) Hyponatremia Current visit: Yes Status: Acute Assessment and Plan: Assessment Insect bite- Right arm Right Intertrochanteric hip fracture-s/p CM fixation by Dr. Falk on 01/09/17 ABLA- Transfusion on 1 unit pRBC given 01/11 and 01/12 Episode of hypotension and bradycardia 01/08/2017 15 minutes post receiving Toprol Anticoagulation with Eliquis for syncope thought to be secondary to arrhythmia Hypertension Hyperlipidemia Near syncope with orthostatic hypotension. History of syncope, none for the past 1 year. Constipation secondary to pain medications. 01/19- Plan Area of 2 cm erythema with center that appears like insect bite. No evidence of induration or infection. Will have nursing staff draw around the area of erythema certainly monitored. Patient may use ice packs or topical Benadryl to help with itching. Otherwise, continue with current rehabilitation orders. Overall patient feels that she is making gains. However, this will slow process. Continue to follow hemoglobin, this morning 8.1 Continue to work with PT,OT Sepsis Assessment - Evaluation Sepsis screening result: No Definite Risk Hospital Course Summary Disclaimer: The visit summary below is not to be considered part of the above Progress Note. Hospital Course: Assessment Right Intertrochanteric hip fracture-s/p CM fixation by Dr. Falk on 01/09/17 ABLA- Transfusion on 1 unit pRBC given 01/11 and 01/12 Episode of hypotension and bradycardia 01/08/2017 15 minutes post receiving Toprol Anticoagulation with Eliquis for syncope thought to be secondary to arrhythmia ( currently on hold) Hypertension Hyperlipidemia Hyponatremia Near syncope with orthostatic hypotension. History of syncope, none for the past 1 year. Constipation secondary to pain medications. Hypocalcemia Bradycardia with first-degree AV block 01/14/17 Medically stable for participation in IRU. Follow sodium levels. No intervention at this point. Continue bowel motivation. Pain control per Dr. Bruce. PT/OT to maximize functional status. Continue to hold Eliquis given recent transfusion and ABLA. Will follow hemoglobin. At time of discharge, care will be returned to patient's PCP, Dr. Bardales. We will follow patient throughout her stay in IRU. Thank you for the consult. 01/16/17 11:22 Right lower extremity pain and swelling, acute. * Patient complains of worsening right lower swelling and calf pain today. Pedal pulses 1+ bilaterally. Patient has been off her Eliquis in light of her post-op anemia. Symptoms concerning for DVT. Will obtain US now for further evaluation. * Hemoglobin remains stable. Will restart Eliquis today for reported history of arrhythmia (1st degree AV block) and recheck CBC on 01/18 to monitor blood counts. Monitor closely for signs of bleeding. Near syncope, acute. * History of syncope, none for the past 1 year. Previous near syncope with orthostatic hypotension. Patient reports feeling lightheaded today during therapy. Will obtain orthostatic blood pressures now and monitor closely. Will also obtain EKG to assess for arrhythmia, history of 1st degree AV block as well as UA to assess for infection. Monitor closely. Patient appears to have good safety awareness. Hyponatremia, acute. * Sodium stable at 133. Will place on 1800 fluid restriction and recheck BMP on 01/18 to monitor electrolytes and renal function. Right Intertrochanteric hip fracture-s/p CM fixation by Dr. Falk on 01/09/17. * Continue therapy and pain control per Dr. Bruce for improvement in functional ability and gait. She continues to have difficulty with pain control especially with movement and ambulation. * Continue with bowel motivation for constipation secondary to narcotic pain medication. * Encourage incentive spirometry for pulmonary toileting. ABLA, acute. * Transfusion of 1 unit pRBC given 01/11 and 01/12. Hemoglobin stable at 8.7 today. Continue iron and vitamin C supplementation for anemia. Will check B12 as well as CBC on 01/18 to monitor blood counts. Hypertension * Episode of hypotension and bradycardia 01/08/2017 15 minutes post receiving Toprol. * Currently on Losartan 25mg daily and metoprolol 50mg daily which is to be held if blood pressure <120. Average systolic blood pressure remain elevated, around 140's-150's. Will hold off on medication changes at this time in light of recent lightheadedness. Will obtain orthostatic blood pressures now. Hyperlipidemia, chronic. * Continue home Zocor. 01/18/17 Black stool is noted in the chart. Patient was started on iron supplementation due to acute blood loss anemia a few days ago, suspect this is the cause of the dark stools. Patient without symptoms. If she has a drop in hemoglobin, will check Hemoccult. Continue to monitor blood pressures. No medicine changes at this point 01/19- Plan Area of 2 cm erythema with center that appears like insect bite. No evidence of induration or infection. Will have nursing staff draw around the area of erythema certainly monitored. Patient may use ice packs or topical Benadryl to help with itching. Otherwise, continue with current rehabilitation orders. Overall patient feels that she is making gains. However, this will slow process. Continue to follow hemoglobin, this morning 8.1 Continue to work with PT,OT
[2017-01-19] MEDS: SIMVASTATIN 40 MG TABLET PO SCH (22:03)
[2017-01-20] MEDS: ASCORBIC ACID 500 MG TABLET PO SCH (08:38)
[2017-01-20] MEDS: FERROUS SULFATE 324 MG TABLET PO SCH (08:38)
[2017-01-20] MEDS: HYDROCODONE/APAP 5mg/325mg TABLET PO PRN ×3 (08:38→21:36)
[2017-01-20] MEDS: SENNA + DOCUSATE TABLET PO SCH ×2 (08:38→21:36)
[2017-01-20] MEDS: FAMOTIDINE 20 MG TABLET PO SCH ×2 (08:38→21:36)
[2017-01-20] MEDS: LOSARTAN 50 MG TABLET PO SCH (08:39)
[2017-01-20] MEDS: APIXABAN 5 MG TABLET PO SCH ×2 (08:39→21:35)
[2017-01-20] MEDS: ASPIRIN *EC* 81 MG TABLET PO SCH (08:39)
[2017-01-20] MEDS: FERROUS GLUCONATE 324 MG TABLET PO SCH (17:40)
[2017-01-20] MEDS: SIMVASTATIN 40 MG TABLET PO SCH (21:36)
[2017-01-21] MEDS: HYDROCODONE/APAP 5mg/325mg TABLET PO PRN ×3 (04:21→18:16)
[2017-01-21] MEDS: FERROUS GLUCONATE 324 MG TABLET PO SCH ×2 (08:22→18:17)
[2017-01-21] MEDS: ASCORBIC ACID 500 MG TABLET PO SCH (08:22)
[2017-01-21] MEDS: APIXABAN 5 MG TABLET PO SCH ×2 (08:23→21:16)
[2017-01-21] MEDS: ASPIRIN *EC* 81 MG TABLET PO SCH (08:23)
[2017-01-21] MEDS: LOSARTAN 50 MG TABLET PO SCH (08:23)
[2017-01-21] MEDS: FAMOTIDINE 20 MG TABLET PO SCH ×2 (08:24→21:17)
[2017-01-21] MEDS: SENNA + DOCUSATE TABLET PO SCH ×2 (08:24→21:16)
--- NOTE | 2017-01-21 09:42 | Progress Note ---
<Enedina Jack - Last Filed: 01/21/17 09:59> Subjective: Danica is seen today in follow up for her recent hip repair and persistent anemia. She is seen in the dining room, having just finished her breakfast. She states that she still does not have much of an appetite but has been eating. She says even at home she doesn't have much of an appetite. Overall, she says she is feeling good and feels like she is making improvements. Her right leg swelling continues to improve and her pain is usually well controlled. She does admit to continuing to feel very fatigued with lightheadedness when she first wakes up and with standing. Review of her recent labs reveals persistent anemia with hemoglobin stable at 8.1 and thrombocytosis with platelets at 499 on 01/19. She denies any signs of bleeding. No chest pain, shortness of breath, abdominal pain, blood in stools, nausea, vomiting or dysuria. Vital signs remain stable. B12 noted to be low at 293. She states that she might have been on supplements for anemia in the past, but is unable to recall. Objective Vital signs: Temperature 97.6 F 01/21/17 08:00 Pulse Rate 88 01/21/17 08:00 Respiratory Rate 12 01/21/17 08:00 Blood Pressure 161/72 H 01/21/17 08:00 Pulse Oximetry 96 01/21/17 08:00 Height/Weight/BMI: Height 5 ft 3.5 in Weight 161 lb 9.581 oz Body Mass Index 28.5 - Constitutional Present: no acute distress, well nourished, well developed, cooperative - Routine HEENT Exam Head: Present: normocephalic, atraumatic Eye: Present: PERRL. Absent: conjunctival icterus ENT: Present: mucous membranes moist - Routine Respiratory Exam Present: CTA bilaterally. Absent: rhonchi, stridor, wheezes, crackles - Routine Cardiovascular Exam Present: RRR, S1, S2 - Routine Abdominal Exam Present: soft, normoactive bowel sounds, non tender - Routine Extremities Exam Present: edema (right lower extremity - improving.), pulses intact Comments: limited ROM of right leg secondary to pain. - Routine Back/Spine/Pelvis Exam Back/Spine: Present: full ROM - Routine Musculoskeletal Exam Musculoskeletal: Present: no clubbing or cyanosis, moving extremities well, limited range of motion (right lower extremity) - Routine Skin Exam Present: intact, dry. Absent: jaundice Comments: dressing to right leg clean, dry and intact; ecchymosis to right leg improving. - Routine Neurological Exam Present: alert, oriented X3, moving all extremities, normal speech - Routine Psychiatric Exam Present: normal affect, cooperative, good insight, good judgment Results - Labs CBC & Chem 7: 01/19/17 04:42 01/19/17 04:42 Assessment and Plan (1) Closed intertrochanteric fracture of right femur Current visit: Yes Status: Acute (2) Hyperlipemia Current visit: No Status: Acute (3) Acute blood loss as cause of postoperative anemia Current visit: Yes Status: Acute (4) Hyponatremia Current visit: Yes Status: Acute DVT Prophylaxis: SCD's, Eliquis GI Prophylaxis: Pepcid Resuscitation Status: Full Code Assessment and Plan: 01/21: [place]. Assessment Insect bite- Right arm, resolved. Right Intertrochanteric hip fracture-s/p CM fixation by Dr. Falk on 01/09/17 ABLA- Transfusion on 1 unit pRBC given 01/11 and 01/12. Episode of hypotension and bradycardia 01/08/2017 15 minutes post receiving Toprol Anticoagulation with Eliquis for syncope thought to be secondary to arrhythmia Hypertension Hyperlipidemia Near syncope with orthostatic hypotension. History of syncope, none for the past 1 year. Constipation secondary to pain medications. Plan Overall, Danica is doing well and making slow gains. Continue therapies and pain control per Dr. Bruce to maximize functional abilities. Bowels are moving well. Continue bowel motivation with narcotic pain control to minimize constipation. She continues to struggle with fatigue and complains of lightheadedness with standing and upon waking, most likely secondary to persistent ABLA. Hemoglobin on 01/19 was stable at 8.1. B12 at that time was noted to be low at 293. Will recheck CBC now to monitor blood counts in light of recent restarting of Eliquis. Initiate B12 supplementation per Up To Date recommendations with 1000mcg IM every 48 hours x 2 weeks followed by 1000mcg po daily. Recommend monitoring CBC periodically during admission and recheck of B12 in 2 weeks (on or around 02/04). Recommend having patient follow with PCP as outpatient regarding B12 deficiency. Continue folate and vitamin C supplementation for anemia as well. Blood pressure remains slightly elevated with average systolic between 150's and 160's. Currently on Cozaar 25mg and Metoprolol 50mg daily. Review of prior medical records indicates that home Cozaar prior to surgery was at 50mg daily. Will discuss increasing Cozaar back to 50mg daily with Dr. Sherman. Concern in light of orthostatic symptoms and history of near-syncope and syncope. - Time spent with patient 25 - 35 minutes Sepsis Assessment - Evaluation Sepsis screening result: No Definite Risk Hospital Course Summary Disclaimer: The visit summary below is not to be considered part of the above Progress Note. Hospital Course: Assessment Right Intertrochanteric hip fracture-s/p CM fixation by Dr. Falk on 01/09/17 ABLA- Transfusion on 1 unit pRBC given 01/11 and 01/12 Episode of hypotension and bradycardia 01/08/2017 15 minutes post receiving Toprol Anticoagulation with Eliquis for syncope thought to be secondary to arrhythmia ( currently on hold) Hypertension Hyperlipidemia Hyponatremia Near syncope with orthostatic hypotension. History of syncope, none for the past 1 year. Constipation secondary to pain medications. Hypocalcemia Bradycardia with first-degree AV block 01/14/17 Medically stable for participation in IRU. Follow sodium levels. No intervention at this point. Continue bowel motivation. Pain control per Dr. Bruce. PT/OT to maximize functional status. Continue to hold Eliquis given recent transfusion and ABLA. Will follow hemoglobin. At time of discharge, care will be returned to patient's PCP, Dr. Bardales. We will follow patient throughout her stay in IRU. Thank you for the consult. 01/16/17 11:22 Right lower extremity pain and swelling, acute. * Patient complains of worsening right lower swelling and calf pain today. Pedal pulses 1+ bilaterally. Patient has been off her Eliquis in light of her post-op anemia. Symptoms concerning for DVT. Will obtain US now for further evaluation. * Hemoglobin remains stable. Will restart Eliquis today for reported history of arrhythmia (1st degree AV block) and recheck CBC on 01/18 to monitor blood counts. Monitor closely for signs of bleeding. Near syncope, acute. * History of syncope, none for the past 1 year. Previous near syncope with orthostatic hypotension. Patient reports feeling lightheaded today during therapy. Will obtain orthostatic blood pressures now and monitor closely. Will also obtain EKG to assess for arrhythmia, history of 1st degree AV block as well as UA to assess for infection. Monitor closely. Patient appears to have good safety awareness. Hyponatremia, acute. * Sodium stable at 133. Will place on 1800 fluid restriction and recheck BMP on 01/18 to monitor electrolytes and renal function. Right Intertrochanteric hip fracture-s/p CM fixation by Dr. Falk on 01/09/17. * Continue therapy and pain control per Dr. Bruce for improvement in functional ability and gait. She continues to have difficulty with pain control especially with movement and ambulation. * Continue with bowel motivation for constipation secondary to narcotic pain medication. * Encourage incentive spirometry for pulmonary toileting. ABLA, acute. * Transfusion of 1 unit pRBC given 01/11 and 01/12. Hemoglobin stable at 8.7 today. Continue iron and vitamin C supplementation for anemia. Will check B12 as well as CBC on 01/18 to monitor blood counts. Hypertension * Episode of hypotension and bradycardia 01/08/2017 15 minutes post receiving Toprol. * Currently on Losartan 25mg daily and metoprolol 50mg daily which is to be held if blood pressure <120. Average systolic blood pressure remain elevated, around 140's-150's. Will hold off on medication changes at this time in light of recent lightheadedness. Will obtain orthostatic blood pressures now. Hyperlipidemia, chronic. * Continue home Zocor. 01/18/17 Black stool is noted in the chart. Patient was started on iron supplementation due to acute blood loss anemia a few days ago, suspect this is the cause of the dark stools. Patient without symptoms. If she has a drop in hemoglobin, will check Hemoccult. Continue to monitor blood pressures. No medicine changes at this point 01/19- Plan Area of 2 cm erythema with center that appears like insect bite. No evidence of induration or infection. Will have nursing staff draw around the area of erythema certainly monitored. Patient may use ice packs or topical Benadryl to help with itching. Otherwise, continue with current rehabilitation orders. Overall patient feels that she is making gains. However, this will slow process. Continue to follow hemoglobin, this morning 8.1 Continue to work with PT,OT 01/21/17 Overall, Danica is doing well and making slow gains. Continue therapies and pain control per Dr. Bruce to maximize functional abilities. Bowels are moving well. Continue bowel motivation with narcotic pain control to minimize constipation. She continues to struggle with fatigue and complains of lightheadedness with standing and upon waking, most likely secondary to persistent ABLA. Hemoglobin on 01/19 was stable at 8.1. B12 at that time was noted to be low at 293. Will recheck CBC now to monitor blood counts in light of recent restarting of Eliquis. Initiate B12 supplementation per Up To Date recommendations with 1000mcg IM every 48 hours x 2 weeks followed by 1000mcg po daily. Recommend monitoring CBC periodically during admission and recheck of B12 in 2 weeks (on or around 02/04). Recommend having patient follow with PCP as outpatient regarding B12 deficiency. Continue folate and vitamin C supplementation for anemia as well. Blood pressure remains slightly elevated with average systolic between 150's and 160's. Currently on Cozaar 25mg and Metoprolol 50mg daily. Review of prior medical records indicates that home Cozaar prior to surgery was at 50mg daily. Will discuss increasing Cozaar back to 50mg daily with Dr. Sherman. Concern in light of orthostatic symptoms and history of near-syncope and syncope. <Lucy Sherman - Last Filed: 01/21/17 17:08> Objective Vital signs: Temperature 98.7 F 01/21/17 15:52 Pulse Rate 79 01/21/17 15:52 Respiratory Rate 12 01/21/17 15:52 Blood Pressure 150/77 H 01/21/17 15:52 Pulse Oximetry 96 01/21/17 15:52 Height/Weight/BMI: Height 1.61 m Weight 73.3 kg Body Mass Index 28.5 Results - Labs CBC & Chem 7: 01/21/17 11:17 01/19/17 04:42 Assessment and Plan (1) Hyperlipemia Current visit: No Status: Acute (2) Closed intertrochanteric fracture of right femur Current visit: Yes Status: Acute (3) Acute blood loss as cause of postoperative anemia Current visit: Yes Status: Acute (4) Hyponatremia Current visit: Yes Status: Acute Assessment and Plan: I have independently evaluated and examined this patient. I reviewed the chart, the patient's history, and the CRUSHING FOREMAN/PA's documented findings as above. We discussed and formulated the assessment and plan as above with additions as below: Mrs. Cleveland reports that she is doing fairly well overall but complains of persistent edema in her lower extremities. There is residual discoloration in the left upper arm where she believes she had an insect bite 2 days ago but no itching or ulceration. NAD, alert Respirations nonlabored +1-2 edema bilateral lower extremities with extensive bruising on the medial right thigh Scattered small bruises on the upper arms bilaterally; faint discolored area on the undersurface of the proximal left upper arm without induration, vesicle, or ulceration, approximately 1 cm in size with central firmness. Low normal B-12 noted, given that patient is anticoagulated for to avoid IM injections and have converted to oral B-12 at 1 mg daily starting tomorrow morning. Losartan increased to 50 mg daily. Other changes as described above. Hospital Course Summary Disclaimer: The visit summary below is not to be considered part of the above Progress Note.
[2017-01-21] MEDS ORDERED: CYANOCOBALAMIN (B-12) 1,000mcg/ml INJECTION IM SCH (09:45)
[2017-01-21] MEDS: SIMVASTATIN 40 MG TABLET PO SCH (21:17)
[2017-01-22] MEDS: HYDROCODONE/APAP 5mg/325mg TABLET PO PRN ×4 (00:20→21:39)
[2017-01-22] MEDS: ASCORBIC ACID 500 MG TABLET PO SCH (08:05)
[2017-01-22] MEDS: FERROUS GLUCONATE 324 MG TABLET PO SCH ×2 (08:05→17:15)
[2017-01-22] MEDS: APIXABAN 5 MG TABLET PO SCH ×2 (08:06→21:27)
[2017-01-22] MEDS: LOSARTAN 50 MG TABLET PO SCH (08:07)
[2017-01-22] MEDS: ASPIRIN *EC* 81 MG TABLET PO SCH (08:07)
[2017-01-22] MEDS: FAMOTIDINE 20 MG TABLET PO SCH ×2 (08:07→21:27)
[2017-01-22] MEDS: SENNA + DOCUSATE TABLET PO SCH ×2 (08:07→21:27)
[2017-01-22] MEDS: CYANOCOBALAMIN (B-12) 500mcg TABLET PO SCH (08:07)
--- NOTE | 2017-01-22 09:14 | IRU Progress Note ---
- Subjective/Serverity of Illness Ms. Cleveland overall is improving. She feels more confident. Continues to have pain but states that that is improved as well. She does continue to report some degree of lightheadedness. This is not a true vertigo she states. While she does have some lack of appetite she does not have nausea nor vomiting. With regard to lightheadedness, she does not have any current evidence of orthostatic hypotension. Infectious been hypertensive. Cozaar was recently increased but she had lightheadedness prior to that. She denies any chest pain or shortness of breath. The following medical problems are reviewed and updated as noted below: 1. Hypertension and orthostatic hypotension: Losartan was recently increased from 25-50 mg daily which she was on at home. No current evidence for orthostatic hypotension. 2. Bradycardia: This problem appears to be stable and has not recurred. 3. Hyponatremia: Sodium is now within the normal range. 4. Leukocytosis: This problem appears to have resolved. Etiology was not clear. 5. Acute blood loss anemia: Hemoglobin is improved. No evidence for further blood loss. Vitamin B12 level slightly on the low side. 6. Constipation: Likely secondary to pain medications 7. Anorexia: Continues to complain of poor appetite. However she relates this to the last several months and not necessarily worse with the current situation. Despite a reduced appetite she states that she has not really lost weight. Exam Vital Signs: Temperature 98 F 01/22/17 07:42 Pulse Rate 84 01/22/17 07:42 Respiratory Rate 18 01/22/17 07:42 Blood Pressure 179/87 H 01/22/17 07:42 Pulse Oximetry 98 01/22/17 07:42 Height/Weight/BMI: Height 1.61 m Weight 73.3 kg Body Mass Index 28.5 Comments: The patient is awake, alert and oriented and in no acute distress. Reduced hearing noted. Pupils are equal. The neck is supple. Chest: Clear to auscultation bilaterally. Cor: RR with no gallop, click nor murmur Abd: soft with normo-active bowel sounds. There are no masses, no tenderness and no guarding. Extremities: Edema is improved in the right lower extremity. Results IRU - Labs Labs: Reviewed current lab as well as hospitalists progress notes. Sepsis Assessment - Evaluation Sepsis screening result: No Definite Risk IRU A/P (1) Closed intertrochanteric fracture of right femur Qualifiers: Encounter type: initial encounter Fracture alignment: displaced Qualified Code(s): S72.141A - Displaced intertrochanteric fracture of right femur, initial encounter for closed fracture Current visit: Yes Status: Acute Continues to have pain with ambulation but overall she states the pain control is reasonably good. It is not worse and in fact better. She is improving with regard to therapies. (2) Acute blood loss as cause of postoperative anemia Current visit: Yes Status: Acute Hemoglobin is improved at present. No evidence for ongoing acute blood loss. (3) Hyponatremia Current visit: Yes Status: Resolved Sodium is now normal and her hyponatremia has resolved. (4) Hyperlipemia Qualifiers: Hyperlipidemia type: mixed hyperlipidemia Qualified Code(s): E78.2 - Mixed hyperlipidemia Current visit: No Status: Acute DVT Prophylaxis: SCD's, Eliquis Resuscitation Status: Full Code - Course Hospital Course: Michael Bruce MD: 01/15/17 10:25 Patient progressing with therapy. Pain is a barrier to progress. We will remove the Cheng catheterhave discussed with hospitalists. She is concerned about urinary urgency. 01/16/17 10:32 Complains of some lightheadedness of uncertain etiology. Blood pressures are stable. This is not true vertigo. Does not have nausea nor vomiting. Right leg edema noted. Hemoglobin improved. I will check with the hospitalists as to whether we can restart the Eliquis. 01/18/17 10:33 Continues to make progress with therapies. In particular she is improving with toileting and transfers. Ambulatory distance and assistance is limited by pain in the right hip. Continues to complain of anorexia but apparently has not lost weight. 01/22/17 09:15 She continues to improve. Pain is improved but still present with ambulation. Lightheadedness noted. Blood pressure remains elevated. Cozaar was recently increased from 25-> 50 mg which apparently is her usual dose at home. Lightheadedness predated the increase in losartan. - Interventions to Obtain Goals PT Treatment Plan: Balance/Proprioception, Functional Activities, Gait Training , Patient/Family Education, Therapeutic Exercise OT Treatment Plan: ADL (Basic Care), Balance Training, IADL, Ther. Exercise for ADL Goals Progress/Modifications: Time spent with patient and on floor reviewing data and documentin minutes Barriers to dismissal: lightheadedness, pain control, confidence in ambulation Medical decision-making: Reviewed blood pressures. Terezaar recently increased. She does have lightheadedness of unclear etiology. Does not sound like vertigo. I reviewed all of her medications today and do not find any that would be likely culprits in this regard. Her lightheadedness may be related to pain medication. She is not on gabapentin. We will continue to monitor this.
--- NOTE | 2017-01-22 13:27 | IRU Team Meeting ---
IRU Team Meeting - Nursing Vital Signs: Vital Signs - 24 hr 01/21/17 15:52 01/21/17 21:17 01/22/17 07:42 Temperature 98.7 F 98.7 F 98 F Pulse Rate 79 84 84 Respiratory Rate 12 16 18 Blood Pressure 150/77 H 153/72 H 179/87 H Pulse Oximetry 96 97 98 01/22/17 09:41 Temperature Pulse Rate 77 Respiratory Rate Blood Pressure 154/71 H Pulse Oximetry Current Medications: Acetaminophen (Tylenol) 500 mg PO Q5H PRN PRN Reason: Discomfort Last Admin: 01/14/17 11:22 Dose: 500 mg Acetaminophen/Hydrocodone Bitart ([place] 5/325) 1 - 2 tab PO Q4H PRN PRN Reason: Pain Last Admin: 01/22/17 07:46 Dose: 2 tab Apixaban (Eliquis) 2.5 mg PO BID [facility] Last Admin: 01/22/17 08:06 Dose: 2.5 mg Ascorbic Acid (Vitamin C) 500 mg PO WB [facility] Last Admin: 01/22/17 08:05 Dose: 500 mg Aspirin (Ecotrin) 81 mg PO DAILY [facility] Last Admin: 01/22/17 08:07 Dose: 81 mg Bacitracin (Bacitracin Oint) 1 applic TOP PRN PRN PRN Reason: TO ABRASIONS ON ARMS Bisacodyl (Dulcolax) 10 mg RECTALLY DAILY PRN PRN Reason: Constipation Cyanocobalamin (Vit. B-12) 1,000 mcg PO DAILY [facility] Last Admin: 01/22/17 08:07 Dose: 1,000 mcg Famotidine (Pepcid) 20 mg PO BID [facility] Last Admin: 01/22/17 08:07 Dose: 20 mg Ferrous Gluconate (Fergon) 324 mg PO BIDWM [facility] Last Admin: 01/22/17 08:05 Dose: 324 mg Losartan Potassium (Cozaar) 50 mg PO DAILY [facility] Last Admin: 01/22/17 08:07 Dose: 50 mg Magnesium Hydroxide (Mom) 30 ml PO DAILY PRN PRN Reason: Constipation Metoprolol Succinate (Toprol Xl) 50 mg PO 1730 [facility] Last Admin: 01/21/17 18:17 Dose: 50 mg Senna/Docusate Sodium (Senna Plus Tablet) 1 tab PO BID [facility] Last Admin: 01/22/17 08:07 Dose: 1 tab Simvastatin (Zocor) 40 mg PO HS SARAH Last Admin: 01/21/17 21:17 Dose: 40 mg Zinc Acetate/Diphenhydramine (Benadryl Extra Strength Cream) 1 applic TOP TID PRN PRN Reason: Itching Last Admin: 01/20/17 18:44 Dose: 1 applic Comments: I certify that I personally led the interdisciplinary team meeting and agree with comments, barriers and goals indicated. Team meeting was held in the patient's room with the patient and the following family members present: Daughter, son, spouse of patient, spouse of daughter. Patient is complaining of some degree of lightheadedness of uncertain etiology but possibly related to pain medication. Her blood pressure has been elevated and the Cozaar was increased. Has had no further spells of bradycardia. Anemia is improved at 9.0 g percent. Sodium has normalized. Pain with ambulation continues to be an issue. She is eating a regular diet but has complained of reduced appetite. Despite that she is eating 75-100% of her meals. She is getting supplements of Mighty Shakes per dietitian. - Physical Therapy Comments: Patient is walking 102 feet with modified independent status with a walker. She has been doing well with stairs. - Occupational Therapy Lower Body Dressing Comment: She is using a sock aid and claims adjustor. She has met most of her goals in this regard. - Care Plan Anticipated Length of Stay: 1 Anticipated DC Destination: Home, Self Care Interventions/Goals: Barriers to dismissal: Walking distance, pain. Goals: Prior goal was modified independent functioning with walking 150 feet. She has walked 102 feet and so she is almost there. Previous goal was modified independent functioning for dressing and has met that goal. New goal is to walk 4 steps with modified independent functioning and a successful home discharge. Anticipate home tomorrow.
[2017-01-22] MEDS: SIMVASTATIN 40 MG TABLET PO SCH (21:28)
[2017-01-23 08:56] VITALS: BP 143/75; PULSE 80; RESP 16; TEMP 98.5; O2SAT 98
[2017-01-23] MEDS: FERROUS GLUCONATE 324 MG TABLET PO SCH (09:07)
[2017-01-23] MEDS: LOSARTAN 50 MG TABLET PO SCH (09:08)
[2017-01-23] MEDS: ASCORBIC ACID 500 MG TABLET PO SCH (09:08)
[2017-01-23] MEDS: ASPIRIN *EC* 81 MG TABLET PO SCH (09:09)
[2017-01-23] MEDS: FAMOTIDINE 20 MG TABLET PO SCH (09:09)
[2017-01-23] MEDS: APIXABAN 5 MG TABLET PO SCH (09:09)
[2017-01-23] MEDS: CYANOCOBALAMIN (B-12) 500mcg TABLET PO SCH (09:10)
[2017-01-23] MEDS: SENNA + DOCUSATE TABLET PO SCH (09:10)
[2017-01-23] MEDS: HYDROCODONE/APAP 5mg/325mg TABLET PO PRN ×2 (09:26→14:16)
--- NOTE | 2017-01-23 10:13 | Discharge Instructions ---
Discharge Plan - Med Rec/Dispo Referrals/Follow Up: Perez Bardales DO [Physician] - (Dr. Parish Bardales on 01/30/17 at 1:15 pm for Hosp. follow-up. [phone]. [address] [address]) Vasyl Bautista PA [Physician Solar System Designer] - (MCKENZIE Hyman on 02/04/17 at 1:30 pm for Post-Op follow-up. Check in at 1: [phone]. [address] [place] [address]) Additional Instructions: Your new medications are: iron (ferrous sulfate) - for iron deficiency ascorbic acid (Vitamin C) - this helps aid iron absorption cyanocobalamin (Vitamin B12) - for Vitamin B12 deficiency Your medicine changes are as follows: You have not been receiving your home dose of hydrochlorothiazide while in the hospital, but you will resume it now as your blood pressures are still slightly elevated. You have not been receiving your home dose of potassium while hospitalized. I would not have you restart this unless directed by your doctor as your potassium levels are normal at this time. Please check your blood pressures at home and take blood pressure readings to your doctor at your follow-up visit. You will need to have follow-up bloodwork in 1-2 weeks to check your potassium and sodium levels. This can be arranged by your primary care doctor. Prescriptions: New Cyanocobalamin (B-12) [Vit. B-12] 1,000 mcg PO DAILY #30 tab Ferrous Gluconate [Fergon] 324 mg PO BIDWM #60 tab HydroCHLOROthiazide [Hydrodiuril] 1 tab PO WB #30 tab Ascorbic Acid [Vitamin C] 500 mg PO WB #30 tab Continue Hydrocodone/APAP 5/325 [[place] 5/325] 1 - 2 tab PO Q4H PRN tablet PRN Reason: Pain Aspirin [Ecotrin] 81 mg PO DAILY Simvastatin [Zocor] 40 mg PO HS Apixaban [Eliquis] 5 mg PO BID Famotidine [Pepcid] 20 mg PO BID tablet Changed Metoprolol Succinate (Xl) [Toprol Xl] 100 mg PO DAILY #0 tablet Losartan [Cozaar] 25 mg PO DAILY #30 No Action Bisacodyl Supp [Dulcolax] 10 mg RECTALLY DAILY PRN supp PRN Reason: Constipation Milk of Magnesia [Mom] 30 ml PO DAILY PRN udc PRN Reason: Constipation Senna + Docusate [Senna Plus Tablet] 1 tab PO BID tablet Acetaminophen [Tylenol] 500 mg PO Q5H PRN tablet PRN Reason: Discomfort Bacitracin Oint 1 applic TOP PRN PRN tube PRN Reason: TO ABRASIONS ON ARMS
--- NOTE | 2017-01-23 10:44 | IRU Progress Note ---
- Subjective/Serverity of Illness Mrs. Cleveland was evaluated in her room. She is looking forward to going home today. She states that she continues to have some discomfort in the right hip with ambulation as anticipated. Her appetite which has been reduced appears to be a bit better. She ate a good meal last night. She denies any cough, sputum, shortness of breath or chest pain. We discussed pain medication. She has been using between 3 and 4 tablets daily. We will give her a prescription for 60 of the hydrocodone. She plans to live here in the area for 10-14 days and then go to [place] to live with her daughter for a while. We discussed outpatient physical therapy. She would like to become involved in that and we will make the appropriate recommendations and arrangements. Her other medical issues appear to be stable. She does not have much in the way of lightheadedness and appears to be stable on her feet. Her appetite is improved. Her hemoglobin is stable at 9.6. No evidence of ongoing blood loss. Previously noted problems of hyponatremia and leukocytosis have resolved. Exam Vital Signs: Temperature 98.5 F 01/23/17 08:00 Pulse Rate 80 01/23/17 08:00 Respiratory Rate 16 01/23/17 08:00 Blood Pressure 143/75 H 01/23/17 08:00 Pulse Oximetry 98 01/23/17 08:00 Height/Weight/BMI: Height 1.61 m Weight 73.3 kg Body Mass Index 28.5 Comments: The patient is awake, alert and oriented and in no acute distress. Pupils are equal. The neck is supple. Chest: Clear to auscultation bilaterally. Cor: RR with no gallop, click nor murmur Abd: soft with normo-active bowel sounds. There are no masses, no tenderness and no guarding. Extremities: There is slight edema of the right lower extremity. There are good pulses in both ankles. No cyanosis is present. The patient's wounds in the right hip area are inspected with Simi present and are clean and dry and without inflammation. Results IRU - Labs Labs: Reviewed current lab. Sepsis Assessment - Evaluation Sepsis screening result: No Definite Risk IRU A/P (1) Closed intertrochanteric fracture of right femur Qualifiers: Encounter type: initial encounter Fracture alignment: displaced Qualified Code(s): S72.141A - Displaced intertrochanteric fracture of right femur, initial encounter for closed fracture Current visit: Yes Status: Acute The wound is healing nicely without evidence of inflammation or infection. Continues to have some discomfort in the hip and we will send her with some pain medication. She is improving with therapies but will become involved in outpatient physical therapy. (2) Acute blood loss as cause of postoperative anemia Current visit: Yes Status: Acute Her hemoglobin is stable at 9.6 g percent. There is no evidence of ongoing blood loss. (3) Hyponatremia Current visit: Yes Status: Resolved (4) Hyperlipemia Qualifiers: Hyperlipidemia type: mixed hyperlipidemia Qualified Code(s): E78.2 - Mixed hyperlipidemia Current visit: No Status: Acute DVT Prophylaxis: SCD's, Eliquis Resuscitation Status: Full Code - Course Hospital Course: Michael Bruce MD: 01/15/17 10:25 Patient progressing with therapy. Pain is a barrier to progress. We will remove the Cheng catheterhave discussed with hospitalists. She is concerned about urinary urgency. 01/16/17 10:32 Complains of some lightheadedness of uncertain etiology. Blood pressures are stable. This is not true vertigo. Does not have nausea nor vomiting. Right leg edema noted. Hemoglobin improved. I will check with the hospitalists as to whether we can restart the Eliquis. 01/18/17 10:33 Continues to make progress with therapies. In particular she is improving with toileting and transfers. Ambulatory distance and assistance is limited by pain in the right hip. Continues to complain of anorexia but apparently has not lost weight. 01/22/17 09:15 She continues to improve. Pain is improved but still present with ambulation. Lightheadedness noted. Blood pressure remains elevated. Cozaar was recently increased from 25-> 50 mg which apparently is her usual dose at home. Lightheadedness predated the increase in losartan. 01/23/17 10:46 She has met occupational therapy goals. She would benefit from outpatient physical therapy and this will be arranged at [facility]. Home today with family. - Interventions to Obtain Goals PT Treatment Plan: Balance/Proprioception, Functional Activities, Gait Training , Patient/Family Education, Therapeutic Exercise OT Treatment Plan: ADL (Basic Care), Balance Training, IADL, Ther. Exercise for ADL Goals Progress/Modifications: Time spent with patient and on floor reviewing data and documentin minutes Barriers to dismissal: Patient is stable for dismissal. Arrangements have been made for safe transition of care to her home.
--- NOTE | 2017-01-23 10:54 | Discharge Instructions ---
Discharge Plan - Med Rec/Dispo Referrals/Follow Up: Perez Bardales DO [Physician] - (Dr. Parish Bardales on 01/30/17 at 1:15 pm for Hosp. follow-up. [phone]. [address] [address]) Vasyl Bautista PA [Physician Utility Plant Operative] - (MCKENZIE Hyman on 02/04/17 at 1:30 pm for Post-Op follow-up. Check in at 1: [phone]. [address] [place] [address]) Additional Instructions: Your new medications are: iron (ferrous sulfate) - for iron deficiency ascorbic acid (Vitamin C) - this helps aid iron absorption cyanocobalamin (Vitamin B12) - for Vitamin B12 deficiency Your medicine changes are as follows: You have not been receiving your home dose of hydrochlorothiazide while in the hospital, but you will resume it now as your blood pressures are still slightly elevated. You have not been receiving your home dose of potassium while hospitalized. I would not have you restart this unless directed by your doctor as your potassium levels are normal at this time. Please check your blood pressures at home and take blood pressure readings to your doctor at your follow-up visit. You will need to have follow-up bloodwork in 1-2 weeks to check your potassium and sodium levels. This can be arranged by your primary care doctor. Prescriptions: New Cyanocobalamin (B-12) [Vit. B-12] 1,000 mcg PO DAILY #30 tab Ferrous Gluconate [Fergon] 324 mg PO BIDWM #60 tab HydroCHLOROthiazide [Hydrodiuril] 1 tab PO WB #30 tab Ascorbic Acid [Vitamin C] 500 mg PO WB #30 tab Continue Aspirin [Ecotrin] 81 mg PO DAILY Simvastatin [Zocor] 40 mg PO HS Apixaban [Eliquis] 5 mg PO BID Famotidine [Pepcid] 20 mg PO BID tablet Changed Metoprolol Succinate (Xl) [Toprol Xl] 100 mg PO DAILY #0 tablet Hydrocodone/APAP 5/325 [[place] 5/325] 1 tab PO Q4H PRN #60 tablet PRN Reason: Pain Losartan [Cozaar] 25 mg PO DAILY #30 No Action Bisacodyl Supp [Dulcolax] 10 mg RECTALLY DAILY PRN supp PRN Reason: Constipation Milk of Magnesia [Mom] 30 ml PO DAILY PRN udc PRN Reason: Constipation Senna + Docusate [Senna Plus Tablet] 1 tab PO BID tablet Acetaminophen [Tylenol] 500 mg PO Q5H PRN tablet PRN Reason: Discomfort Bacitracin Oint 1 applic TOP PRN PRN tube PRN Reason: TO ABRASIONS ON ARMS Discharge Instructions/Outpatient Orders: Final Provider Discharge Instructions Location: Determined By Patient - Disposition 01 Discharged Home, Self-Care
--- NOTE | 2017-01-23 11:04 | Discharge Summary ---
Discharge Information Date of admission: 01/13/17 13:57 Anticipated date of discharge: 01/23/17 Attending Physician: Michael Bruce MD Consults: 01/13/17 14:34 Physician Consult [CONS] Routine Consulting Provider: Joo Cabral Reason For Exam: Medical management Ordering Provider has Notified Program Advocate: No - Discharge Diagnosis (1) Closed intertrochanteric fracture of right femur Discharge Diagnosis: 1. Acute intertrochanteric fracture of right femur, status post open reduction internal fixation 2. Hyponatremia - resolved 3. Benign essential hypertension 4. Acute blood loss anemia 5. Transient episode of bradycardia and hypotension on acute care - resolved and likely secondary to medication 6. Anorexia - improved - Laboratory Labs: 01/23/17 04:06 01/23/17 04:06 History of Present Illness HPI: 01/23/17 11:04 Danica is an 81-year-old white female who had fallen at home after having become entangled in her garden hose while she was watering her yard. She was initially admitted through the emergency department at [facility] and noted to have an intertrochanteric fracture of the right hip. Dr. Falk repaired the hip on 01/09/2017. She did have some hypertension in the postoperative timeframe and was given Toprol. She subsequently had a bradycardic episode and hypotension as well. She was followed by the hospitalists. Echocardiogram showed normal ejection fraction. She was admitted to the inpatient rehabilitation unit because of the need for strengthening after her hip surgery as well as the hypertension, transient bradycardia and hypotension along with acute blood loss anemia, hyponatremia and leukocytosis. Hospital Course This is a general summary of the patient's hospital course. For more details refer to the complete medical record. As noted, while on acute care she did experience some bradycardia and hypotension. This was felt to possibly be secondary to medication. She had no recurrence of her hypotension nor bradycardia. While on the acute inpatient rehabilitation unit she was seen for intensive individualized occupational therapy and physical therapy. She tolerated the therapy well and was very cooperative. She did have some leukocytosis which resolved. Hyponatremia was also noted previously but had resolved by the time of dismissal. She was followed by the hospitalists for her several medical problems. Her antihypertensives were adjusted by the hospitalist team. With regard to therapies, please note the following: Occupational therapy: At the time of dismissal she was standby assistance for bathing, upper body dressing, and transfers including car transfer. Lower body dressing required minimal assistance. Toilet transfer improved from standby assistance to modified independent functioning. She had essentially met her occupational therapy goals for the time dismissal. Physical therapy: Stair climbing initially required total assistance and at the time dismissal she was standby assistance for this. Bed to chair transfers initially required maximal assistance and by the time of dismissal required only standby assistance. At the time of admission she was walking with maximal assistance at 64 feet. By the time of dismissal she was walking 316 feet with standby assistance. She did complain of some anorexia. This appeared to improve during the hospitalization. Also had some lightheadedness which was not true vertigo and was of unclear etiology. It was possibly related to the pain medication but this was not clear. At the time dismissal, her right hip incisions were inspected and showed only minimal bruising. There was no evidence of inflammation nor inflammation. She was felt to be stable for dismissal and it is anticipated that she will go to her home [place] [facility] for about a week and a half. She will be involved in outpatient physical therapy at [facility]. Following that she anticipates going to [place] to live for a time with her daughter. A prescription for hydrocodone with acetaminophen 5/325 #60 was given to the patient at the time of dismissal with no refills. Hospital course: Assessment Right Intertrochanteric hip fracture-s/p CM fixation by Dr. Falk on 01/09/17 ABLA- Transfusion on 1 unit pRBC given 01/11 and 01/12 Episode of hypotension and bradycardia 01/08/2017 15 minutes post receiving Toprol Anticoagulation with Eliquis for syncope thought to be secondary to arrhythmia ( currently on hold) Hypertension Hyperlipidemia Hyponatremia Near syncope with orthostatic hypotension. History of syncope, none for the past 1 year. Constipation secondary to pain medications. Hypocalcemia Bradycardia with first-degree AV block 01/14/17 Medically stable for participation in IRU. Follow sodium levels. No intervention at this point. Continue bowel motivation. Pain control per Dr. Bruce. PT/OT to maximize functional status. Continue to hold Eliquis given recent transfusion and ABLA. Will follow hemoglobin. At time of discharge, care will be returned to patient's PCP, Dr. Bardales. We will follow patient throughout her stay in IRU. Thank you for the consult. 01/16/17 11:22 Right lower extremity pain and swelling, acute. * Patient complains of worsening right lower swelling and calf pain today. Pedal pulses 1+ bilaterally. Patient has been off her Eliquis in light of her post-op anemia. Symptoms concerning for DVT. Will obtain US now for further evaluation. * Hemoglobin remains stable. Will restart Eliquis today for reported history of arrhythmia (1st degree AV block) and recheck CBC on 01/18 to monitor blood counts. Monitor closely for signs of bleeding. Near syncope, acute. * History of syncope, none for the past 1 year. Previous near syncope with orthostatic hypotension. Patient reports feeling lightheaded today during therapy. Will obtain orthostatic blood pressures now and monitor closely. Will also obtain EKG to assess for arrhythmia, history of 1st degree AV block as well as UA to assess for infection. Monitor closely. Patient appears to have good safety awareness. Hyponatremia, acute. * Sodium stable at 133. Will place on 1800 fluid restriction and recheck BMP on 01/18 to monitor electrolytes and renal function. Right Intertrochanteric hip fracture-s/p CM fixation by Dr. Falk on 01/09/17. * Continue therapy and pain control per Dr. Bruce for improvement in functional ability and gait. She continues to have difficulty with pain control especially with movement and ambulation. * Continue with bowel motivation for constipation secondary to narcotic pain medication. * Encourage incentive spirometry for pulmonary toileting. ABLA, acute. * Transfusion of 1 unit pRBC given 01/11 and 01/12. Hemoglobin stable at 8.7 today. Continue iron and vitamin C supplementation for anemia. Will check B12 as well as CBC on 01/18 to monitor blood counts. Hypertension * Episode of hypotension and bradycardia 01/08/2017 15 minutes post receiving Toprol. * Currently on Losartan 25mg daily and metoprolol 50mg daily which is to be held if blood pressure <120. Average systolic blood pressure remain elevated, around 140's-150's. Will hold off on medication changes at this time in light of recent lightheadedness. Will obtain orthostatic blood pressures now. Hyperlipidemia, chronic. * Continue home Zocor. 01/18/17 Black stool is noted in the chart. Patient was started on iron supplementation due to acute blood loss anemia a few days ago, suspect this is the cause of the dark stools. Patient without symptoms. If she has a drop in hemoglobin, will check Hemoccult. Continue to monitor blood pressures. No medicine changes at this point 01/19- Plan Area of 2 cm erythema with center that appears like insect bite. No evidence of induration or infection. Will have nursing staff draw around the area of erythema certainly monitored. Patient may use ice packs or topical Benadryl to help with itching. Otherwise, continue with current rehabilitation orders. Overall patient feels that she is making gains. However, this will slow process. Continue to follow hemoglobin, this morning 8.1 Continue to work with PT,OT 01/21/17 Overall, Danica is doing well and making slow gains. Continue therapies and pain control per Dr. Bruce to maximize functional abilities. Bowels are moving well. Continue bowel motivation with narcotic pain control to minimize constipation. She continues to struggle with fatigue and complains of lightheadedness with standing and upon waking, most likely secondary to persistent ABLA. Hemoglobin on 01/19 was stable at 8.1. B12 at that time was noted to be low at 293. Will recheck CBC now to monitor blood counts in light of recent restarting of Eliquis. Initiate B12 supplementation per Up To Date recommendations with 1000mcg IM every 48 hours x 2 weeks followed by 1000mcg po daily. Recommend monitoring CBC periodically during admission and recheck of B12 in 2 weeks (on or around 02/04). Recommend having patient follow with PCP as outpatient regarding B12 deficiency. Continue folate and vitamin C supplementation for anemia as well. Blood pressure remains slightly elevated with average systolic between 150's and 160's. Currently on Cozaar 25mg and Metoprolol 50mg daily. Review of prior medical records indicates that home Cozaar prior to surgery was at 50mg daily. Will discuss increasing Cozaar back to 50mg daily with Dr. Sherman. Concern in light of orthostatic symptoms and history of near-syncope and syncope. Time spent with patient: 25 - 35 minutes DVT Prophylaxis: Eliquis Discharge Plan - Med Rec/Dispo Referrals/Follow Up: Perez Bardales DO [Physician] - (Dr. Parish Bardales on 01/30/17 at 1:15 pm for Hosp. follow-up. . [facility] [address] [place] [address]) Vasyl Bautista PA [Physician Egg Tester] - (MCKENZIE Hyman on 02/04/17 at 1:30 pm for Post-Op follow-up. Check in at 1: [phone]. [address] [place] [address]) Additional Instructions: Your new medications are: iron (ferrous sulfate) - for iron deficiency ascorbic acid (Vitamin C) - this helps aid iron absorption cyanocobalamin (Vitamin B12) - for Vitamin B12 deficiency Your medicine changes are as follows: You have not been receiving your home dose of hydrochlorothiazide while in the hospital, but you will resume it now as your blood pressures are still slightly elevated. You have not been receiving your home dose of potassium while hospitalized. I would not have you restart this unless directed by your doctor as your potassium levels are normal at this time. Please check your blood pressures at home and take blood pressure readings to your doctor at your follow-up visit. You will need to have follow-up bloodwork in 1-2 weeks to check your potassium and sodium levels. This can be arranged by your primary care doctor. Prescriptions: New Cyanocobalamin (B-12) [Vit. B-12] 1,000 mcg PO DAILY #30 tab Ferrous Gluconate [Fergon] 324 mg PO BIDWM #60 tab HydroCHLOROthiazide [Hydrodiuril] 1 tab PO WB #30 tab Ascorbic Acid [Vitamin C] 500 mg PO WB #30 tab Continue Aspirin [Ecotrin] 81 mg PO DAILY Simvastatin [Zocor] 40 mg PO HS Apixaban [Eliquis] 5 mg PO BID Famotidine [Pepcid] 20 mg PO BID tablet Changed Metoprolol Succinate (Xl) [Toprol Xl] 100 mg PO DAILY #0 tablet Hydrocodone/APAP 5/325 [[place] 5/325] 1 tab PO Q4H PRN #60 tablet PRN Reason: Pain Losartan [Cozaar] 25 mg PO DAILY #30 No Action Bisacodyl Supp [Dulcolax] 10 mg RECTALLY DAILY PRN supp PRN Reason: Constipation Milk of Magnesia [Mom] 30 ml PO DAILY PRN udc PRN Reason: Constipation Senna + Docusate [Senna Plus Tablet] 1 tab PO BID tablet Acetaminophen [Tylenol] 500 mg PO Q5H PRN tablet PRN Reason: Discomfort Bacitracin Oint 1 applic TOP PRN PRN tube PRN Reason: TO ABRASIONS ON ARMS Discharge Instructions/Outpatient Orders: Final Provider Discharge Instructions Location: Determined By Patient
== END 2017-01-23 16:00 | disposition home or self-care (01) | DRG 560 ==
PROVIDERS: ADMIT Internal Medicine; ATTEND Internal Medicine